=== PATIENT | female | born 1965 | race Caucasian/White ===

== ENCOUNTER 2016-11-29 16:37 | Inpatient (IN) | payer OTHER ==
[~2016-11-29] VITALS: Ht 165.1 cm; Wt 81.0 kg
[2016-11-29 19:54] VITALS: BP 140/68; RESP 18
[2016-11-29 20:00] VITALS: Ht 165.1 cm; Wt 81.0 kg
[2016-11-29] MEDS ORDERED: GLUCOSE GEL 15 GRAM TUBE PO PRN ×2 (23:45)
[2016-11-29] MEDS ORDERED: hydrALAzine 20 MG INJ IV PRN (23:45)
[2016-11-29] MEDS ORDERED: GLUCOSE GEL 15 GRAM TUBE BUCCAL PRN (23:45)
[2016-11-29] MEDS ORDERED: GLUCAGON 1 MG INJ IM PRN (23:45)
[2016-11-29] MEDS ORDERED: ONDANSETRON 4 MG INJ IV PRN (23:45)
[2016-11-29] MEDS ORDERED: DEXTROSE 50% 50 ML SYRINGE IV PRN ×2 (23:45)
[2016-11-30 02:00] VITALS: BP 114/65; RESP 18
[2016-11-30] MEDS: SOD CHLORIDE 0.9% 1,000 ML IV SCH ×3 (02:02→20:32)
[2016-11-30] MEDS: Insulin NOVOLOG SS MILD Algorithm (NPO/TPN/ENTERAL FEEDS) SC SCH ×7 (02:09→20:30)
[2016-11-30] MEDS ORDERED: morphine 4 MG/ML VIAL IV PRN (02:40)
[2016-11-30] MEDS ORDERED: GLU5XL PO (02:53)
[2016-11-30] MEDS ORDERED: LYR75 PO (02:53)
[2016-11-30] MEDS ORDERED: FLUO10TA PO (02:53)
[2016-11-30] MEDS ORDERED: METF1000 PO (02:53)
[2016-11-30] MEDS ORDERED: SITA100T8 PO (02:53)
[2016-11-30] MEDS ORDERED: LISI10TA2 PO (02:55)
[2016-11-30] MEDS ORDERED: MELO7.5O PO (02:55)
[2016-11-30 04:04] LABS: CALCIUM 9.1 mg/dl (8.4-10.2); CREATININE 0.44 mg/dl (0.44-1.00); MAGNESIUM 1.6 mg/dl (1.7-2.5); POTASSIUM 4.1 mmol/L (3.5-5.1)
[2016-11-30] MEDS ORDERED: NACL 0.9% 3 ML SYG IV SCH (04:30)
[2016-11-30] MEDS ORDERED: ONDANSETRON 4 MG INJ IV PRN (04:30)
[2016-11-30] MEDS ORDERED: METOCLOPRAMIDE 10 MG INJ IV PRN (04:30)
[2016-11-30 04:54] LABS: BASOPHIL # 0.1 10^3/ul (0.0-0.1); BASOPHILS % 0.4 % (0.0-2.0); EOSINOPHILS % 0.3 % (0.0-7.0); HEMATOCRIT 36.7 % (37.0-47.0); LYMPHOCYTES # 3.2 10^3/ul (0.8-2.9); LYMPHOCYTES % 27.5 % (15.0-51.0); MEAN CORPUSCULAR HEMOGLOBIN 30.9 pg (29.0-33.0); MEAN CORPUSCULAR HGB CONC 35.4 g/dl (32.0-37.0); MEAN CORPUSCULAR VOLUME 87.2 fl (82.0-101.0); MEAN PLATELET VOLUME 10.2 fl (7.4-10.4); MONOCYTE # 0.5 10^3/ul (0.3-0.9); MONOCYTES % 4.6 % (0.0-11.0); NEUTROPHIL # 7.8 10^3/ul (1.6-7.5); NEUTROPHILS % 66.8 % (39.0-77.0); PLATELET COUNT 247 10^3/UL (140-415); RED BLOOD COUNT 4.21 10^6/ul (4.20-5.40); RED CELL DISTRIBUTION WIDTH 12.9 % (11.5-14.5); WHITE BLOOD COUNT 11.6 10^3/ul (4.8-10.8)
[2016-11-30] MEDS: PANTOPRAZOLE 40 MG INJ IV SCH (05:25)
[2016-11-30 06:16] LABS: BASOPHIL # 0.1 10^3/ul (0.0-0.1); BASOPHILS % 0.7 % (0.0-2.0); EOSINOPHILS # 0.1 10^3/ul (0.0-0.5); EOSINOPHILS % 0.8 % (0.0-7.0); HEMATOCRIT 35.8 % (37.0-47.0); HEMOGLOBIN 12.6 g/dl (12.0-16.0); LYMPHOCYTES # 2.9 10^3/ul (0.8-2.9); MEAN CORPUSCULAR HGB CONC 35.2 g/dl (32.0-37.0); MEAN PLATELET VOLUME 10.5 fl (7.4-10.4); MONOCYTE # 0.5 10^3/ul (0.3-0.9); MONOCYTES % 5.7 % (0.0-11.0); NEUTROPHIL # 5.6 10^3/ul (1.6-7.5); NEUTROPHILS % 60.5 % (39.0-77.0); PLATELET COUNT 245 10^3/UL (140-415); RED BLOOD COUNT 4.07 10^6/ul (4.20-5.40); RED CELL DISTRIBUTION WIDTH 12.9 % (11.5-14.5); WHITE BLOOD COUNT 9.2 10^3/ul (4.8-10.8)
[2016-11-30] MEDS ORDERED: MAGNESIUM SULFATE 1 GM/D5W 100 ML IVPB ONE (06:30)
--- NOTE | 2016-11-30 06:45 | HP ---
Date/Time of Note Date/Time of Note DATE: 11/30/16 TIME: 06:31 Assessment/Plan VTE Prophylaxis VTE Prophylaxis Intervention: SCD's Lines/Catheters IV Catheter Type (from [facility]): Peripheral IV Assessment/Plan Chief Complaint/Hosp Course This is a 51-year-old female being admitted to the [facility] floor for: #1 abdominal pain: Gastroparesis versus constipation versus hepatic etiology versus other GI etiology. Patient's outpatient laboratory workup showed a mild elevation of ALT and AST of 44 each respectively lipase was normal. Her urine test was normal. CT scan did show hepatomegaly and hepatic steatosis as well as an indeterminate 2.1 cm heterogeneous enhancing lesion at the junction of the segment 4B and [address] in [address] Multiphase CT scan or MRI with Eovist was recommended. There also was moderate amount of stool throughout the colon with findings of bowel stasis but no signs of any bowel obstruction. There was a small hiatal hernia and small bilateral fat-containing hernias. At the current time will provide patient with Reglan for nausea as well as to help stimulate bowel motility in the setting of possible underlying gastroparesis. In the setting of patient's having multiple tattoos will also order hepatitis panel. Will also order an MRI with the oldest as it was recommended based on the CT scan to evaluate the liver lesion. Will give the patient MiraLAX daily to help stimulate her bowels as well and will check a TSH and hemoglobin A1c. Will consult GI for further evaluation. Keep the patient n.p.o. at this time and IV fluids for hydration. #2 diabetes mellitus: At the current time will hold patient's home oral medications, will patient on insulin sliding scale. #3 hypertension: We will continue patient's lisinopril. #4 depression: We will continue patient's home fluoxetine. #5 DVT and GI prophylaxis: SCDs, Protonix Further treatment strategy will be implemented as per the clinical course Problems: HPI/ROS Admit Date/Time Admit Date/Time Nov 29, 2016 at 19:31 Hx of Present Illness Chief complaint: Epigastric pain This is a 51-year-old female who was transferred from [facility] with complaints of abdominal pain for 3 days. She presented to the ED at that time with 3 days of epigastric abdominal pain which was 8 out of 10 in severity and is worse when eating. She also had nausea but denied any fevers or any vomiting. She denies any taking any medications or any prior history of similar pain symptoms. She states the pain is sharp in nature. At the current time patient is still complaining of pain which is between the epigastric and right upper quadrant area. The morphine has not been helping with her pain. Zofran has been helping with her nausea. She does report that her last bowel movement was day before yesterday. Allergies: NKDA Medications: See Jul Const: As per HPI Eyes : No pain discharge or redness or change in visual acuity ENT: No pain, sore throat, congestion, congestion, dysphagia or discharge Respiratory: No shortness of breath, cough, sputum, wheezing, or pleuritic pain Cardiovascular: No chest pain, palpitation, PND, or edema GI : As per HPI Genitourinary: No dysuria, hematuria, flank pain , discharge or CVA tenderness Musculoskeletal: No joint pain, back pain, neck pain, restricted range of motion in neck or joints Skin: No rash, bruising or hives Neuro: No headache, dizziness, syncope, seizure, focal weakness Endocrine: No polyuria, polydipsia, temperature intolerance Psych: No hallucination, depression, anxiety or suicidal ideation PMH/Family/Social Past Medical History Diabetes mellitus, depression, hypertension, melanoma status post surgical removal from the right upper extremity. Past Surgical History Melanoma status post surgical removal from the right upper extremity., Cholecystectomy Family History Significant Family History: diabetes Social History Patient does have multiple tattoos Alcohol Use: none Smoking Status: Never smoker Drug Use: none Exam/Review of Systems Vital Signs Vitals Vital Signs Date Time Temp Pulse Resp B/P Pulse Ox O2 Delivery O2 Flow Rate FiO2 11/30/16 02:00 98.7 76 18 114/65 96 Exam Exam General: Patient is a well-developed female lying in bed in mild distress from pain. HEENT: Atraumatic, normocephalic. The pupils are equal, round and reactive. Extraocular motor are intact Neck: Supple with full range of motion. No rigidity or meningismus Chest: Nontender Lungs: Clear to auscultation bilaterally no crackles rales or wheezing Heart: Normal S1-S2, Regular rhythm and rate. No murmur, S3, or S4 Abdomen: Soft, tenderness to palpation diffusely around the abdomen with right upper quadrant area having the greatest, hypoactive bowel sounds Extremities: Normal to inspection, no edema no cyanosis Neurologic: Normal mental status, speech normal, cranial nerves II through XII are intact, motor and sensory are intact, no focal weakness Additional Comments CT abdomen and pelvis CT scan did show hepatomegaly and hepatic steatosis as well as an indeterminate 2.1 cm heterogeneous enhancing lesion at the junction of the segment 4B and [address] Multiphase CT scan or MRI with Eovist was recommended. There also was moderate amount of stool throughout the colon with findings of bowel stasis but no signs of any bowel obstruction. There was a small hiatal hernia and small bilateral fat-containing hernias. Please refer to transfer documentation/reports for further information of the above report. Urinalysis showed specific gravity of 1037 glucose greater than 1000, with ketones 40. Negative for nitrites and negative for leukoesterase. CBC showed white blood cell count 7.9 hemoglobin of 13.3 hematocrit of 38.3 and platelets of 214 BMP showed glucose level of 324 sodium 132 potassium 4.5 chloride 100 CO2 21 BUN 9 and creatinine is 0.35 magnesium 1.8 total bili of 1.1 ALT of 44 AST of 44 alk phos 73 and lipase of 21 troponin was less than 0.029 and beta hCG qualitative was negative Labs Result Diagram: 11/29/16224911/29/162249 Medications Medications Current Medications Sodium Chloride (NS) 1,000 ml @ 70 mls/hr [id number] IV Last administered on 11/30 02:02; Admin Dose 70 MLS/HR; Start 11/29/16 at 23:45 Ondansetron HCl (Zofran Inj) 4 mg Q4H PRN IV NAUSEA AND/OR VOMITING Last administered on 11/30/16 03:36; Admin Dose 4 MG; Start 11/29/16 at 23:45 Hydralazine HCl (Apresoline) 10 mg Q6H PRN IV FOR SBP.ABOVE 160; Start at 23:45 Insulin Aspart (Novolog Insulin Pen) (Adult SC Insulin - Mild Algorithm)... Q4 SC Last administered on 11/30/16 05:32; Admin Dose 2 UNIT; Start 11/30/16 at 01:00 Miscellaneous Information 1 ea NOTE XX ; Start 11/29/16 at 23:45 Glucose (Glutose) 15 gm Q15M PRN PO DECREASED GLUCOSE; Start 11/29/16 at 23:45 Glucose (Glutose) 22.5 gm Q15M PRN PO DECREASED GLUCOSE; Start 11/29/16 at 23: 45 Dextrose (D50w Syringe) 25 ml Q15M PRN IV DECREASED GLUCOSE; Start 11/29/16 at 23:45 Dextrose (D50w Syringe) 50 ml Q15M PRN IV DECREASED GLUCOSE; Start 11/29/16 at 23:45 Glucagon (Glucagen) 1 mg Q15M PRN IM DECREASED GLUCOSE; Start 11/29/16 at 23:45 Glucose (Glutose) 15 gm Q15M PRN BUCCAL DECREASED GLUCOSE; Start 11/29/16 at 23 :45 Morphine Sulfate (morphine) 4 mg Q4H PRN IV PAIN Last administered on 03:01; Admin Dose 4 MG; Start 11/30/16 at 02:40 Ondansetron HCl (Zofran Inj) 4 mg Q6H PRN IV NAUSEA AND/OR VOMITING; Start at 04:30 Metoclopramide HCl (Reglan) 10 mg Q6H PRN IV NAUSEA AND/OR VOMITING; Start at 04:30 Pantoprazole (Protonix Iv) 40 mg DAILY@06 IV Last administered on 11/30/16 05: 25; Admin Dose 40 MG; Start 11/30/16 at 06:00 Hydromorphone HCl 0.5 mg 0.5 mg Q4H PRN IV PAIN; Start 11/30/16 at 06:30; Status UNV Magnesium Sulfate/ Dextrose (Magnesium Sulfate 1 Gm/D5W) 100 ml @ 100 mls/hr ONCE ONCE IVPB ; Start 11/30/16 at 06:30; Stop 11/30/16 at 07:29; Status UNV CODY REYES Nov 30, 2016 06:41
[2016-11-30 07:04] LABS: ALBUMIN 3.7 g/dl (3.3-4.9); ALBUMIN/GLOBULIN RATIO 1.15; BILIRUBIN,INDIRECT 0.5 mg/dl (0-1.1); BILIRUBIN,TOTAL 0.5 mg/dl (0.2-1.3); CALCIUM 8.7 mg/dl (8.4-10.2); CREATININE 0.45 mg/dl (0.44-1.00); POTASSIUM 3.9 mmol/L (3.5-5.1); TOTAL PROTEIN 6.9 g/dl (6.1-8.1)
[2016-11-30 07:26] LABS: THYROID STIMULATING HORMONE 2.31 MIU/L (0.465-4.680)
[2016-11-30 07:39] VITALS: BP 130/71; RESP 18
[2016-11-30 07:49] LABS: HAAIG REFLEX REFLEX FILED
[2016-11-30] MEDS: PREGABALIN 75 MG CAP PO SCH ×2 (08:47→20:26)
[2016-11-30] MEDS: LISINOPRIL 10 MG TAB PO SCH ×2 (08:48→20:27)
[2016-11-30] MEDS: FLUOXETINE 10 MG CAP PO SCH (08:48)
[2016-11-30] MEDS: POLYETHYLENE GLYCOL 17 GM PACKET PO SCH (08:49)
[2016-11-30 09:14] LABS: HEPATITIS B CORE ANTIBODY NEGATIVE (NEGATIVE)
[2016-11-30] MEDS: HYDROmorphONE 1 MG/ML SYG IV PRN ×3 (10:05→23:52)
[2016-11-30 14:18] VITALS: BP 111/64; RESP 18
[2016-11-30 19:53] VITALS: BP 110/66; RESP 20
--- NOTE | 2016-11-30 20:19 | RADRPT ---
PROCEDURE: MR Abdomen. CLINICAL INDICATION: Indeterminate liver lesion. TECHNIQUE: Multiplanar MRI of the abdomen was performed prior to and following the intravenous adm inistration of 10 cc of Eovist. COMPARISON: CT abdomen/pelvis 11/29/2016. FINDINGS: The liver is enlarged measuring approximately 22.0 cm in a craniocaudal dimension. The liver demons trates diffuse loss in signal intensity on opposed phase chemical shift sequences compatible with fa tty infiltration. There is a tiny 10-11 mm T2 hyperintense structure within the left hepatic lobe w hich demonstrates early homogeneous enhancement and remaining isointense to the hepatic vessels on p ortal venous phase. This small lesion does not retain contrast on the delayed hepatocellular phase. Imaging findings are most compatible with a small flash filling hemangioma. There is no additiona l liver lesion. The hepatic and portal veins are patent. The gallbladder is surgically absent. Th e common bile duct measures approximately 7.5 mm in greatest diameter, which is likely normal post c holecystectomy. Mild prominence of the central intrahepatic ducts is observed. The remnant cystic duct is unremarkable. There is no pancreatic duct dilatation. The spleen and pancreas are homogeneous enhancement. The adrenal glands are normal. The kidneys are symmetric in size, signal intensity and enhancement. There is no hydronephrosis or abnormal perinephric inflammation. The abdominal aorta is normal in caliber. There is no periaortic / retroperitoneal lymphadenopathy. The stomach and visualized small and large intestines are unremarkable. There is no ascites. There are no bone marrow signal abnormalities. Subcutaneous soft tissues are unremarkable. IMPRESSION: Hepatomegaly with fatty infiltration. Small lesion of the left hepatic lobe demonstrating enhancement characteristics favoring the presenc e of a tiny flash filling hemangioma. No evidence of abdominal mass, lymphadenopathy or acute inflammatory pathology. RPTAT: HLST .Angie Leyva MD, MD Date Time Electronically viewed and signed by .Angie Leyva MD, on 11/30/2016 20:18 .T/
[2016-12-01] MEDS: Insulin NOVOLOG SS MILD Algorithm (NPO/TPN/ENTERAL FEEDS) SC SCH ×4 (01:44→13:00)
[2016-12-01 01:57] VITALS: BP 113/64; RESP 20
[2016-12-01] MEDS: PANTOPRAZOLE 40 MG INJ IV SCH (05:16)
[2016-12-01 06:15] LABS: BASOPHILS % 0.5 % (0.0-2.0); EOSINOPHILS # 0.2 10^3/ul (0.0-0.5); EOSINOPHILS % 1.7 % (0.0-7.0); HEMATOCRIT 34.7 % (37.0-47.0); HEMOGLOBIN 11.8 g/dl (12.0-16.0); LYMPHOCYTES # 3.7 10^3/ul (0.8-2.9); LYMPHOCYTES % 42.8 % (15.0-51.0); MEAN CORPUSCULAR HEMOGLOBIN 30.2 pg (29.0-33.0); MEAN CORPUSCULAR VOLUME 88.7 fl (82.0-101.0); MEAN PLATELET VOLUME 10.4 fl (7.4-10.4); MONOCYTE # 0.5 10^3/ul (0.3-0.9); NEUTROPHIL # 4.2 10^3/ul (1.6-7.5); NEUTROPHILS % 48.7 % (39.0-77.0); PLATELET COUNT 228 10^3/UL (140-415); RED BLOOD COUNT 3.91 10^6/ul (4.20-5.40); RED CELL DISTRIBUTION WIDTH 13.2 % (11.5-14.5); WHITE BLOOD COUNT 8.6 10^3/ul (4.8-10.8)
[2016-12-01 06:34] LABS: ALBUMIN 3.6 g/dl (3.3-4.9); ALBUMIN/GLOBULIN RATIO 1.12; BILIRUBIN,INDIRECT 0.5 mg/dl (0-1.1); BILIRUBIN,TOTAL 0.5 mg/dl (0.2-1.3); CALCIUM 8.3 mg/dl (8.4-10.2); CREATININE 0.51 mg/dl (0.44-1.00); POTASSIUM 3.8 mmol/L (3.5-5.1); TOTAL PROTEIN 6.8 g/dl (6.1-8.1)
[2016-12-01 07:13] VITALS: BP 109/63; RESP 18
[2016-12-01] MEDS: FLUOXETINE 10 MG CAP PO SCH (10:06)
[2016-12-01] MEDS: PREGABALIN 75 MG CAP PO SCH (10:06)
[2016-12-01] MEDS: POLYETHYLENE GLYCOL 17 GM PACKET PO SCH (10:06)
[2016-12-01] MEDS: LISINOPRIL 10 MG TAB PO SCH (10:10)
[2016-12-01] MEDS: SOD CHLORIDE 0.9% 1,000 ML IV SCH (11:57)
--- NOTE | 2016-12-01 12:22 | PDOCDIS ---
Discharge Instructions CONDITION Patient Condition: Good HOME CARE INSTRUCTIONS: Diet Instructions: Reduced Calorie ACTIVITY: Activity Restrictions: No Restrictions FOLLOW UP/APPOINTMENTS Follow-up Plan F/U WITH YOUR PCP IN 1-2 WEEKS MARY HICKS Dec 01, 2016 12:22
--- NOTE | 2016-12-01 14:08 | DS ---
Date/Time of Note Date/Time of Note DATE: 12/01/16 TIME: 14:03 Discharge Summary Admission/Discharge Info Admit Date/Time Nov 29, 2016 at 19:31 Discharge Date/Time Dec 01, 2016 at 13:55 Discharge Diagnosis #1 abdominal pain secondary to fibromyalgia pain -Continue home Lyrica -MRCP was negative #2 Diabetes-A1c elevated 11.7 -Patient follow with PCP lifestyle changes have been advised #3 hypertension: Continue home #4 depression: Continue home meds #5 Fatty liver-lifestyle changes advised Patient Condition: Good Hospital Course Patient is a 51-year-old female who was transferred from [facility] with complaints of abdominal pain for 3 days. Patient describes the pain as being in the abdominal muscular wall description sounds as though it is a nerve pain. Patient has been diagnosed with fibromyalgia in the past and is on Lyrica. Patient's MRCP was negative and her symptoms were felt to be from fibromyalgia and not a GI based issue. Of note patient's MRCP did show fatty liver and her A1c was elevated as above and patient was advised to begin lifestyle changes to improve her diet and increase her exercise. On day of discharge patient's vitals, labs and physical exam are stable, she had no acute complaints and questions were answered. Home Meds Reported Medications Meloxicam* (Meloxicam*) 7.5 Mg/5 Ml Oral.susp, 15 MG PO DAILY, #300 ML 11/30/16 Lisinopril* (Lisinopril*) 10 Mg Tablet, 10 MG PO BID, #30 TAB 11/30/16 Fluoxetine Hcl* (Fluoxetine Hcl*) 10 Mg Tablet, 10 MG PO DAILY, TAB 11/30/16 Pregabalin* (Lyrica*) 75 Mg Capsule, 75 MG PO BID, CAP 11/30/16 Glipizide XL* (Glipizide XL*) 5 Mg Tabsr, 10 MG PO BID, TAB 11/30/16 Metformin Hcl* (Metformin Hcl*) 1,000 Mg Tablet, 1000 MG PO WITH BREAKFAST DINNE , #60 TAB 11/30/16 Sitagliptin* (Januvia*) 100 Mg Tablet, 100 MG PO BID, #30 TAB 11/30/16 Follow-up Plan Follow-up with PCP 1-2 weeks Primary Care Provider Not On Staff Doctor Time spent on discharge: > 30 minutes MARY HICKS Dec 01, 2016 14:08
== END 2016-12-01 13:55 | disposition home or self-care (01) | DRG 556 ==
LOC: MS2 19:31
PROVIDERS: ADMIT Internal Medicine; ATTEND Internal Medicine
DX: M79.7 Fibromyalgia (principal); K76.0 Fatty (change of) liver, not elsewhere classified; I10 Essential (primary) hypertension; E11.9 Type 2 diabetes mellitus without complications; F32.9 Major depressive disorder, single episode, unspecified; Z79.84 Long term (current) use of oral hypoglycemic drugs
CPT/HCPCS: 74182; 80048; 80053; 80061; 82962; 83036; 83690; 83735; 84443; 85025; 86704; 86706; 86708; 86709; 86803; 87340; C9113; J1170; J1815; J2270; J2405; J3475; J7030

== ENCOUNTER 2016-12-06 15:14 | Outpatient (CLI) | payer OTHER ==
[~2016-12-06] VITALS: Ht 165.1 cm; Wt 83.6 kg
[~2016-12-06 15:14] MED LIST: FLUO10TA PO; GLU5XL PO; LISI10TA2 PO; LYR75 PO; MELO7.5O PO; METF1000 PO; SITA100T8 PO
[2016-12-06 15:22] VITALS: BP 119/68; PULSE 65; RESP 18; Ht 165.1 cm; Wt 83.6 kg
--- NOTE | 2016-12-06 16:05 | PN ---
Date/Time of Note Date/Time of Note DATE: 12/06/16 TIME: 16:00 Outpatient Progress Note Chief Complaint Abdominal pain/diabetes/hypertension/depression/history of fibromyalgia HPI Abdominal pain/patient complains of abdominal discomfort, mostly in epigastric, mild to moderate, constant, no radiation, patient is already on medication, patient was recently hospitalized, and no obvious reason, Diabetes/no polydipsia poly-hypoglycemia, gastroparesis, Hypertension/no headache or dizziness, lightheadedness, Depression/patient has depression, no suicidal, History of fibromyalgia/patient was told he has a history of fibromyalgia, patient already on Lyrica, Review of Systems Const: No Fever, no chills, no Wt. loss, no Fatigue, normal appetite, no diaphoresis. Eyes: No pain, no discharge, no redness, no visual change, no foreign body. ENT: No pain, no bleeding, no congestion, no sore throat, no dysphagia, no discharge or rhinitis. Lymph: No adenopathy, no tender nodes, no lymphedema. Resp: No SOB, no cough, no sputum, no wheezing, no chest pain. CV: No chest pain, no palpitaions, no IBRAHIM, no PND, no edema. GI: Normal appetite, epigastric pain, no nausea, no vomiting, no diarrhea, no blood, no constipation. : No frequency, no urgency, no dysuria, no hematuria, no flank pain, no discharge, no bleeding. Musc: No bone/joint pain, no back pain, no neck pain, no knee pain, no restricted ROM. Skin: No rash, no skin lesions, no erythema, no laceration, no bruising, no pruritus. Neuro: No GUAJARDO, no dizziness, no syncope, no seizure, no focal-weakness. Endo: No polyuria, no polydypsia, no dry-skin, no temp-intolerance. Psych: No hallucinations, no depression, no anxiety, no suicidal ideation. Ext: No edema, no pain, no ulcer, no weakness. Physical Exam Vital Signs Date Time Temp Pulse Resp B/P Pulse Ox O2 Delivery O2 Flow Rate FiO2 12/06/16 15:22 98.0 65 18 119/68 98 Room Air General Appearance: A 51 year-old female who appears well-developed, well- nourished, in no acute distress. HEENT: Head normocephalic, atraumatic. Pupils equal, round, reactive to light and accommodate. Sclerae are no jaundice. Nasal turbinates pink without erythema or nasal discharge. Mucous membranes pink and moist without lesions. Oropharynx clear without any exudate or discharge. NECK: Supple. Trachea midline, No thyromegaly, No cervical lymphadenopathy, No mass, No carotid bruits, No JVD, Carotid pulses 2+ bilaterally. PULMONARY: Clear to auscultaion bilaterally, No retractions, Chest expansion symmetric bilaterally, no rales, no ronchi, no dulness on percussion. CARDIAC: Normal SI and S2, Regular rate and rythm, no murmur, gallop, or rub. GASTROINTESTINAL: Abdomen is soft, mild epigastric discomfort,, Non Rigid, No distention, Positive bowel sounds x4 quadrants, Liver normal. SKIN: Warm, dry, no rash, no bruise, no echmosis. Tattoo all over her body, EXTREMITIES: Bilateral lower extremities normal, no edema, no phlabitus, pulse palpable, no contracture patient has tattoo all over her body,. MUSCULOSKELETAL: Spine Normal, Non-tender, Normal range of motion, No swelling, no deformity, no clubbing, or cyanosis, the patient has no edema to bilateral lower extremities, dorsalis pedis pulses palpable bilaterally. NEUROLOGIC: The patient is awake, alert, oriented, responding to yes/no questions appropriately, moving all extremities, cranial nerve intact, normal strenght, normal power, normal coordination, normal gait. Allergies Coded Allergies: No Known Allergy (Unverified , 11/30/16) PMH Abdominal pain/diabetes/hypertension/depression/history of fibromyalgia/history of melanoma many years ago, Social Hx No smoking no drinking, Family Hx Noncontributory Assessment/Plan Impression Abdominal pain cause undetermined Status post cholecystectomy Diabetes Hypertension Depression Fibromyalgia History of melanoma Plan Detail explanation about multiple disease, discussed about prognosis, discussed about her condition, Patient encouraged to increase activity, Patient encouraged to lose weight, and patient encouraged to control the diet, Patient encouraged to follow with the primary care physician, Patient has all the medication at present, no need any new medication at present , Medications Home Meds Reported Medications Meloxicam* (Meloxicam*) 7.5 Mg/5 Ml Oral.susp, 15 MG PO DAILY, #300 ML 11/30/16 Lisinopril* (Lisinopril*) 10 Mg Tablet, 10 MG PO BID, #30 TAB 11/30/16 Fluoxetine Hcl* (Fluoxetine Hcl*) 10 Mg Tablet, 10 MG PO DAILY, TAB 11/30/16 Pregabalin* (Lyrica*) 75 Mg Capsule, 75 MG PO BID, CAP 11/30/16 Glipizide XL* (Glipizide XL*) 5 Mg Tabsr, 10 MG PO BID, TAB 11/30/16 Metformin Hcl* (Metformin Hcl*) 1,000 Mg Tablet, 1000 MG PO WITH BREAKFAST DINNE , #60 TAB 11/30/16 Sitagliptin* (Januvia*) 100 Mg Tablet, 100 MG PO BID, #30 TAB 11/30/16 HELGA SHAW MD Dec 06, 2016 16:05
== END 2016-12-06 16:48 | disposition home or self-care (01) ==
LOC: DCC 15:14
PROVIDERS: ATTEND Internal Medicine
DX: R10.9 Unspecified abdominal pain (principal); E11.9 Type 2 diabetes mellitus without complications; I10 Essential (primary) hypertension; F32.9 Major depressive disorder, single episode, unspecified; M79.7 Fibromyalgia

== ENCOUNTER 2017-01-03 11:44 | Outpatient (CLI) | payer OTHER ==
[~2017-01-03] VITALS: Ht 165.1 cm; Wt 80.0 kg
[2017-01-03 11:42] VITALS: BP 121/78; PULSE 68; RESP 16; Ht 165.1 cm; Wt 80.0 kg
--- NOTE | 2017-01-03 15:20 | PN ---
Date/Time of Note Date/Time of Note DATE: 01/03/17 TIME: 15:17 Outpatient Progress Note Chief Complaint Diabetes/hypertension/depression/fibromyalgia HPI Diabetes/no polydipsia polyuria hypoglycemia, gastroparesis, Hypertension/no headache or dizziness, no lightheadedness, Depression patient slightly depressed because of multiple medical problem, Fibromyalgia/patient has joint pain and stiffness, PUD/patient complains of epigastric pain, no nausea vomiting, no black stool, Review of Systems Const: No Fever, no chills, no Wt. loss, no Fatigue, normal appetite, no diaphoresis. Eyes: No pain, no discharge, no redness, no visual change, no foreign body. ENT: No pain, no bleeding, no congestion, no sore throat, no dysphagia, no discharge or rhinitis. Lymph: No adenopathy, no tender nodes, no lymphedema. Resp: No SOB, no cough, no sputum, no wheezing, no chest pain. CV: No chest pain, no palpitaions, no IBRAHIM, no PND, no edema. GI: Normal appetite, epigastric pain, no nausea, no vomiting, no diarrhea, no blood, no constipation. : No frequency, no urgency, no dysuria, no hematuria, no flank pain, no discharge, no bleeding. Musc: Slight back pain, no neck pain, no knee pain, no restricted ROM. Skin: No rash, no skin lesions, no erythema, no laceration, no bruising, no pruritus. Neuro: No GUAJARDO, no dizziness, no syncope, no seizure, no focal-weakness. Endo: No polyuria, no polydypsia, no dry-skin, no temp-intolerance. Psych: No hallucinations, no depression, no anxiety, no suicidal ideation. Ext: No edema, no pain, no ulcer, no weakness. Physical Exam Vital Signs Date Time Temp Pulse Resp B/P Pulse Ox O2 Delivery O2 Flow Rate FiO2 01/03/17 11:42 98.0 68 16 121/78 98 Room Air General Appearance: A 51 year-old female who appears well-developed, well- nourished, in no acute distress. HEENT: Head normocephalic, atraumatic. Pupils equal, round, reactive to light and accommodate. Sclerae are no jaundice. Nasal turbinates pink without erythema or nasal discharge. Mucous membranes pink and moist without lesions. Oropharynx clear without any exudate or discharge. NECK: Supple. Trachea midline, No thyromegaly, No cervical lymphadenopathy, No mass, No carotid bruits, No JVD, Carotid pulses 2+ bilaterally. PULMONARY: Clear to auscultaion bilaterally, No retractions, Chest expansion symmetric bilaterally, no rales, no ronchi, no dulness on percussion. CARDIAC: Normal SI and S2, Regular rate and rythm, no murmur, gallop, or rub. GASTROINTESTINAL: Abdomen is soft, epigastric discomfort, and slight tenderness, , Non Rigid, No distention, Positive bowel sounds x4 quadrants, Liver normal. SKIN: Warm, dry, no rash, no bruise, no echmosis. EXTREMITIES: Bilateral lower extremities normal, no edema, no phlabitus, pulse palpable, no contracture. MUSCULOSKELETAL: Spine Normal, Non-tender, Normal range of motion, No swelling, no deformity, no clubbing, or cyanosis, the patient has no edema to bilateral lower extremities, dorsalis pedis pulses palpable bilaterally. NEUROLOGIC: The patient is awake, alert, oriented, responding to yes/no questions appropriately, moving all extremities, cranial nerve intact, normal strenght, normal power, normal coordination, normal gait. Allergies Coded Allergies: No Known Allergy (Unverified , 11/30/16) PMH No change Social Hx No change Family Hx No change Assessment/Plan Impression Diabetes/hypertension/depression/fibromyalgia/PUD Plan Patient education done about her disease, and process, Patient encouraged to follow with the primary care physician, Patient has epigastric discomfort, patient already on meloxicam, patient may have gastritis, will start Protonix or equivalent 40 mg daily, #30 patient to follow with the primary care physician, if patient feel benefit or may need extension of the medication, Medications Home Meds Reported Medications Meloxicam* (Meloxicam*) 7.5 Mg/5 Ml Oral.susp, 15 MG PO DAILY, #300 ML 11/30/16 Lisinopril* (Lisinopril*) 10 Mg Tablet, 10 MG PO BID, #30 TAB 11/30/16 Fluoxetine Hcl* (Fluoxetine Hcl*) 10 Mg Tablet, 10 MG PO DAILY, TAB 11/30/16 Pregabalin* (Lyrica*) 75 Mg Capsule, 75 MG PO BID, CAP 11/30/16 Glipizide XL* (Glipizide XL*) 5 Mg Tabsr, 10 MG PO BID, TAB 11/30/16 Metformin Hcl* (Metformin Hcl*) 1,000 Mg Tablet, 1000 MG PO WITH BREAKFAST DINNE , #60 TAB 11/30/16 Sitagliptin* (Januvia*) 100 Mg Tablet, 100 MG PO BID, #30 TAB 11/30/16 HELGA SHAW MD Jan 03, 2017 15:20
== END 2017-01-03 17:00 | disposition home or self-care (01) ==
LOC: DCC 11:44
PROVIDERS: ATTEND Internal Medicine
DX: E11.9 Type 2 diabetes mellitus without complications (principal); I10 Essential (primary) hypertension; M79.7 Fibromyalgia; K27.9 Peptic ulcer, site unspecified, unspecified as acute or chronic, without hemorrhage or perforation; F32.9 Major depressive disorder, single episode, unspecified

== ENCOUNTER 2017-01-11 12:25 | Inpatient (IN) | payer OTHER ==
[~2017-01-11] VITALS: Ht 165.1 cm; Wt 81.0 kg
[~2017-01-11 12:25] MED LIST changes: +GLIP-160 PO; -GLU5XL PO
[2017-01-11] MEDS ORDERED: MELO7.5O PO (15:04)
[2017-01-11] MEDS ORDERED: GLIP2.5T3 PO (15:15)
[2017-01-11] MEDS ORDERED: TERB250T9 PO (15:15)
[2017-01-11] MEDS: SOD CHLORIDE 0.9% 1,000 ML IV SCH (16:30)
[2017-01-11] MEDS ORDERED: DEXTROSE 50% 50 ML SYRINGE IV PRN ×2 (16:30)
[2017-01-11] MEDS ORDERED: GLUCAGON 1 MG INJ IM PRN (16:30)
[2017-01-11] MEDS ORDERED: GLUCOSE GEL 15 GRAM TUBE PO PRN ×2 (16:30)
[2017-01-11] MEDS ORDERED: METOCLOPRAMIDE 10 MG INJ IV PRN (16:30)
[2017-01-11] MEDS ORDERED: NACL 0.9% 3 ML SYG IV SCH (16:30)
[2017-01-11] MEDS ORDERED: GLUCOSE GEL 15 GRAM TUBE BUCCAL PRN (16:30)
--- NOTE | 2017-01-11 16:34 | QN ---
Documentation Job number: [id number] Comment H&P dictated. KIMBERLY VELAZQUEZ NP Jan 11, 2017 16:34
[2017-01-11] MEDS: CEFTRIAXONE 1 GM/50 ML (PMX) 50 ML IVPB SCH (17:35)
[2017-01-11] MEDS: INSULIN ASPART [NOVOLOG] 3 ML PEN SC SCH ×3 (17:38→21:00)
--- NOTE | 2017-01-11 17:41 | HP ---
DATE OF ADMISSION: 01/11/2017 REASON FOR ADMISSION: Transfer from outside facility for further evaluation of abdominal pain. HISTORY OF PRESENT ILLNESS: This is a 51-year-old, female, with past medical history of chronic back pain, depression, type 2 diabetes mellitus, essential hypertension, and melanoma who went to [facility] Emergency Room because of abdominal pain with associated nonbilious, nonbloody vomiting and diarrhea that has been going on for a 3 day period. The patient verbalized the abdominal pain as unprovoked. The patient also verbalized subjective fevers. The patient located abdominal pain at the lower abdomen in the periumbilical area. The patient denied any radiation of the pain. The patient denied any dysuria or hematuria. The patient denied any melena or hematochezia. The patient denied any hematemesis. In the emergency room at [facility], the patient underwent extensive evaluation. The patient's urinalysis at [facility] showed positive urine WBC of 10 to 25 with a large amount of urine leukocyte esterase. The patient had no leukocytosis. The patient was noticed to have hyperglycemia. The patient underwent a CT scan of the abdomen and pelvis at [facility] that was negative for any acute findings. The patient was treated with IV fluids, IV analgesics, antiemetics, and a single dose of IV ceftriaxone. PAST MEDICAL HISTORY: Essential hypertension, type 2 diabetes mellitus, melanoma, depression, and chronic back pain. PAST SURGICAL HISTORY: Excision of melanoma and cholecystectomy. MEDICATIONS: 1. Lisinopril 10 mg by mouth twice a day. 2. Fluoxetine 20 mg by mouth daily. 3. Meloxicam 15 mg by mouth daily. 4. Lyrica 75 mg by mouth twice a day. 5. Glipizide 10 mg by mouth daily. 6. Metformin 1000 mg by mouth with breakfast and dinner. 7. Januvia 100 mg by mouth daily. ALLERGIES: NO KNOWN DRUG ALLERGIES. SOCIAL HISTORY: The patient lives at home. No history of tobacco, alcohol, or illicit drug use. REVIEW OF SYSTEMS: A 12 point review of systems all remaining review of systems are negative other than what is mentioned history of present illness. PHYSICAL EXAMINATION: GENERAL APPEARANCE: A 51-year-old, female, lying in bed, in no apparent distress. HEENT: Normocephalic and atraumatic. Eyes anicteric sclerae. Conjunctivae clear. ENT: Nasal septal mucosa is dry. NECK: Supple. No JVD noted. RESPIRATORY: Bilaterally clear to auscultation. No adventitious breath sounds. No use of accessory muscle respiration. CARDIAC: Regular rate and rhythm. S1-S2 heard. ABDOMEN: Soft. Periumbilical tenderness and tenderness in the right upper quadrant, no guarding. GENITOURINARY: Deferred. EXTREMITIES: No cyanosis, no clubbing, no edema. Peripheral pulses palpable. NEUROLOGIC: The patient is awake, alert, and oriented. Cranial nerves are grossly intact. LABORATORY AND DIAGNOSTIC DATA: From [facility]: WBC 9.8, hemoglobin 14.5, hematocrit 41.7, and platelet count 258. Sodium 136, potassium 3.9, chloride 101, carbon dioxide 23, anion gap 248, BUN 15, creatinine 0.65, calcium 9.5, magnesium 1.5, and total bilirubin 1.1. ALT 35, AST 30, alkaline phosphatase 69, amylase 42, and lipase 23. Serum HCG negative. Urinalysis, urine leukocyte esterase large, urine microscopic WBCs 10-25. CT scan of the abdomen and pelvis with IV contrast. No free fluid. Abscess in the abdomen or pelvis. Stable 1 cm hypervascular blush in the left lateral hepatic lobe. Fatty change of the liver. Status post cholecystectomy that is stable. Postoperative prominence of the common bile duct. Tiny bilateral inguinal hernias. IMPRESSION: This is a 51-year-old female, who will be admitted to [facility] for further evaluation of her abdominal pain. ASSESSMENT AND PLAN: 1. Abdominal pain. Etiology unclear. The patient had associated nausea, vomiting, as well as diarrhea. Fair cultures will be obtained. The patient will be started on empiric antibiotics. Etiology of the patient's abdominal pain is unclear at this time. The patient has no evidence of any acute abdominal findings. The patient has no evidence of any transaminitis or hyperbilirubinemia. However, the patient had a positive urinalysis, which could be contributing to the patient's abdominal pain and other symptomatology. The patient will be started on empiric antibiotics. 2. Positive urinalysis with possible urinary tract infection. Urine cultures will be obtained. Will keep the patient hydrated. She will be started on appropriate antibiotics. 3. Type 2 diabetes mellitus. The patient will be started on sliding scale insulin along with pre-meal insulin and basal insulin. Metformin will be put on hold because the patient received IV contrast during the CT scan done at [facility]. 4. Essential hypertension. The patient will be continued on antihypertensives. 5. Depression. The patient will be continued on SSRIs. 6. Chronic back pain. The patient will be continued on pain medications. The rest of the patient's management will be based on the clinical course, results of diagnostics, and inputs from consultants. Based on the patient's clinical presentation, she most probably requires at least 1 midnight's stay for further management and evaluation for clinical presentation. The case and management of this patient was fully discussed with Dr. Millan. Dictated By: Venkat Lopez NP /calvin/chuck /Document#: [id number] THOM
[2017-01-11] MEDS ORDERED: metFORMIN 500 MG TAB PO SCH (18:05)
[2017-01-11] MEDS: morphine 2 MG INJ IV PRN (20:49)
[2017-01-11 20:52] VITALS: BP 103/50; RESP 18
[2017-01-11] MEDS: PREGABALIN 75 MG CAP PO SCH (20:52)
[2017-01-11] MEDS: FAMOTIDINE 20 MG TAB PO SCH (20:52)
[2017-01-11] MEDS: LISINOPRIL 10 MG TAB PO SCH ×2 (20:53→21:07)
[2017-01-11] MEDS: INSULIN GLARGINE [LANtus] 3 ML PEN SC SCH (21:04)
[2017-01-12] MEDS: morphine 2 MG INJ IV PRN ×3 (01:57→17:04)
[2017-01-12] MEDS ORDERED: ACCU-CHEK XX SCH (02:00)
[2017-01-12] MEDS: ACCU-CHEK XX SCH (02:00)
[2017-01-12] MEDS: SOD CHLORIDE 0.9% 1,000 ML IV SCH ×2 (02:07→11:50)
[2017-01-12 02:56] VITALS: BP 118/64; RESP 18
[2017-01-12 06:10] LABS: BASOPHIL # 0.1 10^3/ul (0.0-0.1); BASOPHILS % 0.6 % (0.0-2.0); EOSINOPHILS # 0.2 10^3/ul (0.0-0.5); EOSINOPHILS % 1.8 % (0.0-7.0); HEMATOCRIT 33.9 % (37.0-47.0); HEMOGLOBIN 11.8 g/dl (12.0-16.0); LYMPHOCYTES # 3.6 10^3/ul (0.8-2.9); LYMPHOCYTES % 41.6 % (15.0-51.0); MEAN CORPUSCULAR HEMOGLOBIN 30.8 pg (29.0-33.0); MEAN CORPUSCULAR HGB CONC 34.8 g/dl (32.0-37.0); MEAN CORPUSCULAR VOLUME 88.5 fl (82.0-101.0); MEAN PLATELET VOLUME 10.2 fl (7.4-10.4); MONOCYTE # 0.5 10^3/ul (0.3-0.9); NEUTROPHILS % 49.8 % (39.0-77.0); PLATELET COUNT 225 10^3/UL (140-415); RED BLOOD COUNT 3.83 10^6/ul (4.20-5.40); RED CELL DISTRIBUTION WIDTH 12.8 % (11.5-14.5); WHITE BLOOD COUNT 8.7 10^3/ul (4.8-10.8)
[2017-01-12 06:46] LABS: ALBUMIN 3.4 g/dl (3.3-4.9); ALBUMIN/GLOBULIN RATIO 1.09; BILIRUBIN,INDIRECT 0.2 mg/dl (0-1.1); BILIRUBIN,TOTAL 0.2 mg/dl (0.2-1.3); CREATININE 0.5 mg/dl (0.44-1.00); POTASSIUM 3.3 mmol/L (3.5-5.1); TOTAL PROTEIN 6.5 g/dl (6.1-8.1)
[2017-01-12 07:12] LABS: MAGNESIUM 1.7 mg/dl (1.7-2.5); PHOSPHORUS 3.2 mg/dl (2.5-4.9)
[2017-01-12 07:43] LABS: THYROID STIMULATING HORMONE 2.28 MIU/L (0.465-4.680)
[2017-01-12] MEDS: INSULIN ASPART [NOVOLOG] 3 ML PEN SC SCH ×7 (07:58→21:00)
[2017-01-12] MEDS: INSULIN GLARGINE [LANtus] 3 ML PEN SC SCH (07:59)
[2017-01-12] MEDS: PREGABALIN 75 MG CAP PO SCH ×2 (08:06→21:09)
[2017-01-12] MEDS: ENOXAPARIN 40 MG/0.4 ML SYG SC SCH (08:06)
[2017-01-12] MEDS: FLUOXETINE 20 MG CAP PO SCH (08:06)
[2017-01-12] MEDS: FAMOTIDINE 20 MG TAB PO SCH ×2 (08:06→21:09)
[2017-01-12] MEDS: LISINOPRIL 10 MG TAB PO SCH ×2 (08:06→21:08)
[2017-01-12] MEDS: MELOXICAM 15 MG TAB PO SCH (08:06)
[2017-01-12 09:03] VITALS: BP 114/68; RESP 18
[2017-01-12] MEDS: HYDROCODONE/APAP (5/325) TAB PO PRN (11:38)
[2017-01-12] MEDS ORDERED: POTASSIUM CHLORIDE (SR) 10 MEQ TAB PO ONE (12:30)
--- NOTE | 2017-01-12 13:54 | PN ---
Date/Time of Note Date/Time of Note DATE: 01/12/17 TIME: 13:53 Assessment/Plan VTE Prophylaxis VTE Prophylaxis Intervention: LMWH Lines/Catheters IV [facility]ter [facility]from [facility] Saline Lock Assessment/Plan Chief Complaint/Hosp Course 1. Abdominal pain. Etiology unclear. CT scan of the abdomen and pelvis from outside facility has been negative for any acute findings. The patient had positive urinalysis. Urine cultures pending at this time. Continue empiric antibiotics. Obtain gastroenterology consult. 2. Positive urinalysis with possible urinary tract infection. Urine cultures pending at this time. Continue empiric antibiotics. 3. Type 2 diabetes mellitus. Continue sliding scale insulin along with basal insulin and pre-meal insulin. Hold metformin because of recent IV contrast use. 4. Essential hypertension. The patient will be continued on antihypertensives. 5. Depression. The patient will be continued on SSRIs. 6. Chronic back pain. The patient will be continued on pain medications. 7. Fluids, electrolytes, and nutrition. Carbohydrate controlled diet. 8. DVT prophylaxis. Subcutaneous Lovenox. 9. Gastrointestinal prophylaxis. Histamine 2 receptor blockers. 10. Plan. Continue pain control. Continue empiric antibiotics. Obtain gastroenterology consult. Case discussed with . Problems: Subjective 24 Hr Interval Summary Free Text/Dictation Continues to have abdominal pain. Exam/Review of Systems Vital Signs Vitals Vital Signs Date Time Temp Pulse Resp B/P Pulse Ox O2 Delivery O2 Flow Rate FiO2 01/12/17 09:03 98.0 72 18 114/68 97 Intake and Output 01/11/17 01/11/17 01/12/17 15:00 23:00 07:00 Intake Total 590 ml 1880 ml Balance 590 ml 1880 ml Exam GENERAL APPEARANCE: A 51-year-old, female, lying in bed, in no apparent distress. HEENT: Normocephalic and atraumatic. Eyes anicteric sclerae. Conjunctivae clear. ENT: Nasal septal mucosa is dry. NECK: Supple. No JVD noted. RESPIRATORY: Bilaterally clear to auscultation. No adventitious breath sounds. No use of accessory muscle respiration. CARDIAC: Regular rate and rhythm. S1-S2 heard. ABDOMEN: Soft. Periumbilical tenderness and tenderness in the right upper quadrant, no guarding. GENITOURINARY: Deferred. EXTREMITIES: No cyanosis, no clubbing, no edema. Peripheral pulses palpable. NEUROLOGIC: The patient is awake, alert, and oriented. Cranial nerves are grossly intact. Results Result Diagram: 01/12/17 0541 01/12/17 0541 Results 24 hrs Laboratory Tests Test 01/11/17 16:36 01/11/17 17:34 01/11/17 20:58 01/12/17 05:41 Lactic Acid Level 1.0 0.8 Bedside Glucose 197 158 White Blood Count 8.7 Red Blood Count 3.83 L Hemoglobin 11.8 L Hematocrit 33.9 L Mean Corpuscular Volume 88.5 Mean Corpuscular Hemoglobin 30.8 Mean Corpuscular Hemoglobin Concent 34.8 Red Cell Distribution Width 12.8 Platelet Count 225 Mean Platelet Volume 10.2 Neutrophils % 49.8 Lymphocytes % 41.6 Monocytes % 6.0 Eosinophils % 1.8 Basophils % 0.6 Nucleated Red Blood Cells % 0.0 Neutrophils # (Manual) 4.3 Lymphocytes # 3.6 H Monocytes # 0.5 Eosinophils # 0.2 Basophils # 0.1 Nucleated Red Blood Cells # 0.0 Sodium Level 139 Potassium Level 3.3 L Chloride Level 107 Carbon Dioxide Level 26 Anion Gap 9 Blood Urea Nitrogen 10 Creatinine 0.50 Glucose Level 114 Hemoglobin A1c 8.2 H Calcium Level 8.0 L Phosphorus Level 3.2 Magnesium Level 1.7 Total Bilirubin 0.2 Direct Bilirubin 0.00 Indirect Bilirubin 0.2 Aspartate Amino Transf (AST/SGOT) 25 Alanine Aminotransferase (ALT/SGPT) 43 Alkaline Phosphatase 60 Total Protein 6.5 Albumin 3.4 Globulin 3.10 Albumin/Globulin Ratio 1.09 Triglycerides Level 110 Cholesterol Level 113 LDL Cholesterol, Calculated 63 HDL Cholesterol 28 L Cholesterol/HDL Ratio 4.0 Thyroid Stimulating Hormone (TSH) 2.280 Free Thyroxine 1.07 Test 01/12/17 07:55 01/12/17 11:42 Bedside Glucose 160 193 Medications Medications Current Medications Sodium Chloride (NS) 1,000 ml @ 100 mls/hr Q10H IV Last administered on t 11:50; Admin Dose 100 MLS/HR; Start 01/11/17 at 16:09 Metoclopramide HCl (Reglan) 10 mg Q6H PRN IV NAUSEA AND/OR VOMITING; Start 01/11 at 16:30 Acetaminophen/ Hydrocodone Bitart ([place] (5/325)) 1 tab Q6H PRN PO MODERATE PAIN LEVEL 4-6 Last administered on 01/12/17 11:38; Admin Dose 1 TAB; Start 01/11 at 16:30 Morphine Sulfate (morphine) 2 mg Q4H PRN IV SEVERE PAIN LEVEL 7-10 Last administered on 01/12/17 08:07; Admin Dose 2 MG; Start 01/11/17 at 16:30 Famotidine (Pepcid) 20 mg Q12 PO Last administered on 01/12/17 08:06; Admin Dose 20 MG; Start 01/11/17 at 21:00 Enoxaparin Sodium (Lovenox) 40 mg DAILY SC Last administered on 01/12/17 08:06 ; Admin Dose 40 MG; Start 01/12/17 at 09:00 Fluoxetine HCl (Prozac) 20 mg DAILY PO Last administered on 01/12/17 08:06; Admin Dose 20 MG; Start 01/12/17 at 09:00 Lisinopril (Zestril) 10 mg BID PO Last administered on 01/12/17 08:06; Admin Dose 10 MG; Start 01/11/17 at 21:00 Pregabalin (Lyrica) 75 mg BID PO Last administered on 01/12/17 08:06; Admin Dose 75 MG; Start 01/11/17 at 21:00 Meloxicam (Mobic) 15 mg DAILY PO Last administered on 01/12/17 08:06; Admin Dose 15 MG; Start 01/12/17 at 09:00 Insulin Glargine (Lantus) 12 unit DAILY@08 SC Last administered on 01/12/17 07: 59; Admin Dose 12 UNIT; Start 01/11/17 at 21:00 Diagnostic Test (Pha) (Accu-Chek) 1 ea 02 XX ; Start 01/12/17 at 02:00 Miscellaneous Information 1 ea NOTE XX ; Start 01/11/17 at 16:30 Glucose (Glutose) 15 gm Q15M PRN PO DECREASED GLUCOSE; Start 01/11/17 at 16:30 Glucose (Glutose) 22.5 gm Q15M PRN PO DECREASED GLUCOSE; Start 01/11/17 at 16:30 Dextrose (D50w Syringe) 25 ml Q15M PRN IV DECREASED GLUCOSE; Start 01/11/17 at 16:30 Dextrose (D50w Syringe) 50 ml Q15M PRN IV DECREASED GLUCOSE; Start 01/11/17 at 16:30 Glucagon (Glucagen) 1 mg Q15M PRN IM DECREASED GLUCOSE; Start 01/11/17 at 16:30 Glucose 15 gm 15 gm Q15M PRN BUCCAL DECREASED GLUCOSE; Start 01/11/17 at 16:30 Ceftriaxone Sodium (Rocephin) 50 ml @ 100 mls/hr Q24H IVPB Last administered on 01/11/17t 17:35; Admin Dose 100 MLS/HR; Start 01/11/17 at 17:00 KIMBERLY VELAZQUEZ NP Jan 12, 2017 13:54
--- NOTE | 2017-01-12 15:26 | CONS ---
Date/Time of Note Date/Time of Note DATE: 01/12/17 TIME: 15:08 Assessment/Plan Assessment/Plan Additional Assessment/Plan Assessment * Abdominal pain/diarrhea * Intractable nausea nad vomiting * Diabetes mellitus * H/O back pain * H/O melanoma * H/O cholecystectomy Plan * adequate hydration * pain control * stool for c difficile * may have clear liquids Consultation Date/Type/Reason Admit Date/Time Jan 11, 2017 at 14:33 Date of Consultation: Jan 12, 2017 Type of Consultation: gastroenterology Reason for Consultation abdominal pain and diarrhea Referring Provider: KIMBERLY VELAZQUEZ CHILD ATTENDANT Hx of Present Illness 51 year old female with past medical history chronic back pain,depression, diabetes hypertension ,melanoma was transferred to our facility because of abdominal pain diarrhea and vomiting.Patient was seen at [facility] where CT scan revealed no free fluid,free air or abscess,stable 1 cm hypervascular bluish in the left hepatic lobe,fatty change of liver,s/p cholecystectomy,normal appendix ,fluid in colon diarrhea,no significant colonic thickening.Due to insurance issues ,patient was transferred to our institution.Patient was previously admitted last November with same complaint with no significant MRI findings.Presently patient is having on and off colicky abdominal pain bearable ,afebrile with no nausea ,vomiting nor diarrhea.We are still awaiting for stool c difficile determination Past Medical History Medical History: diabetes, urinary tract infection, other (back pain) Past Surgical History Past Surgical Hx: cholecystectomy Family History Significant Family History: no pertinent family hx Social History Smoking Status: Never smoker Exam/Review of Systems Vital Signs Vitals Vital Signs Date Time Temp Pulse Resp B/P Pulse Ox O2 Delivery O2 Flow Rate FiO2 01/12/17 09:03 98.0 72 18 114/68 97 Intake and Output 01/11/17 01/11/17 01/12/17 15:00 23:00 07:00 Intake Total 590 ml 1880 ml Balance 590 ml 1880 ml Exam Constitutional: alert, oriented, well developed Psych: nl mood/affect, no complaints Head: atraumatic, normocephalic Eyes: EOMI, PERRL, nl conjunctiva, nl lids, nl sclera ENMT: nl external ears & nose, nl lips & teeth, nl nasal mucosa & septum Neck: non-tender, supple Respiratory: clear to auscultation, normal air movement Cardiovascular: nl pulses, regular rate and rhythm Gastrointestinal: nl liver, spleen, non-tender, soft Musculoskeletal: nl extremities to inspection, nl gait and stance Extremities: normal pulses Neurological: PREDATORY HUNTER II-XII intact, nl mental status, nl speech, nl strength Skin: nl turgor, No rash or lesions Lymph: nl lymph nodes Results Result Diagram: 01/12/17 0541 01/12/17 0541 Results 24 hrs Laboratory Tests Test 01/11/17 16:36 01/11/17 17:34 01/11/17 20:58 01/12/17 05:41 Lactic Acid Level 1.0 0.8 Bedside Glucose 197 158 White Blood Count 8.7 Red Blood Count 3.83 L Hemoglobin 11.8 L Hematocrit 33.9 L Mean Corpuscular Volume 88.5 Mean Corpuscular Hemoglobin 30.8 Mean Corpuscular Hemoglobin Concent 34.8 Red Cell Distribution Width 12.8 Platelet Count 225 Mean Platelet Volume 10.2 Neutrophils % 49.8 Lymphocytes % 41.6 Monocytes % 6.0 Eosinophils % 1.8 Basophils % 0.6 Nucleated Red Blood Cells % 0.0 Neutrophils # (Manual) 4.3 Lymphocytes # 3.6 H Monocytes # 0.5 Eosinophils # 0.2 Basophils # 0.1 Nucleated Red Blood Cells # 0.0 Sodium Level 139 Potassium Level 3.3 L Chloride Level 107 Carbon Dioxide Level 26 Anion Gap 9 Blood Urea Nitrogen 10 Creatinine 0.50 Glucose Level 114 Hemoglobin A1c 8.2 H Calcium Level 8.0 L Phosphorus Level 3.2 Magnesium Level 1.7 Total Bilirubin 0.2 Direct Bilirubin 0.00 Indirect Bilirubin 0.2 Aspartate Amino Transf (AST/SGOT) 25 Alanine Aminotransferase (ALT/SGPT) 43 Alkaline Phosphatase 60 Total Protein 6.5 Albumin 3.4 Globulin 3.10 Albumin/Globulin Ratio 1.09 Triglycerides Level 110 Cholesterol Level 113 LDL Cholesterol, Calculated 63 HDL Cholesterol 28 L Cholesterol/HDL Ratio 4.0 Thyroid Stimulating Hormone (TSH) 2.280 Free Thyroxine 1.07 Test 01/12/17 07:55 01/12/17 11:42 Bedside Glucose 160 193 Medications Medications Current Medications Sodium Chloride (NS) 1,000 ml @ 100 mls/hr Q10H IV Last administered on t 11:50; Admin Dose 100 MLS/HR; Start 01/11/17 at 16:09 Metoclopramide HCl (Reglan) 10 mg Q6H PRN IV NAUSEA AND/OR VOMITING; Start 01/11 at 16:30 Acetaminophen/ Hydrocodone Bitart ([place] (5/325)) 1 tab Q6H PRN PO MODERATE PAIN LEVEL 4-6 Last administered on 01/12/17 11:38; Admin Dose 1 TAB; Start 01/11 at 16:30 Morphine Sulfate (morphine) 2 mg Q4H PRN IV SEVERE PAIN LEVEL 7-10 Last administered on 01/12/17 08:07; Admin Dose 2 MG; Start 01/11/17 at 16:30 Famotidine (Pepcid) 20 mg Q12 PO Last administered on 01/12/17 08:06; Admin Dose 20 MG; Start 01/11/17 at 21:00 Enoxaparin Sodium (Lovenox) 40 mg DAILY SC Last administered on 01/12/17 08:06 ; Admin Dose 40 MG; Start 01/12/17 at 09:00 Fluoxetine HCl (Prozac) 20 mg DAILY PO Last administered on 01/12/17 08:06; Admin Dose 20 MG; Start 01/12/17 at 09:00 Lisinopril (Zestril) 10 mg BID PO Last administered on 01/12/17 08:06; Admin Dose 10 MG; Start 01/11/17 at 21:00 Pregabalin (Lyrica) 75 mg BID PO Last administered on 01/12/17 08:06; Admin Dose 75 MG; Start 01/11/17 at 21:00 Meloxicam (Mobic) 15 mg DAILY PO Last administered on 01/12/17 08:06; Admin Dose 15 MG; Start 01/12/17 at 09:00 Insulin Glargine (Lantus) 12 unit DAILY@08 SC Last administered on 01/12/17 07: 59; Admin Dose 12 UNIT; Start 01/11/17 at 21:00 Diagnostic Test (Pha) (Accu-Chek) 1 ea 02 XX ; Start 01/12/17 at 02:00 Miscellaneous Information 1 ea NOTE XX ; Start 01/11/17 at 16:30 Glucose (Glutose) 15 gm Q15M PRN PO DECREASED GLUCOSE; Start 01/11/17 at 16:30 Glucose (Glutose) 22.5 gm Q15M PRN PO DECREASED GLUCOSE; Start 01/11/17 at 16:30 Dextrose (D50w Syringe) 25 ml Q15M PRN IV DECREASED GLUCOSE; Start 01/11/17 at 16:30 Dextrose (D50w Syringe) 50 ml Q15M PRN IV DECREASED GLUCOSE; Start 01/11/17 at 16:30 Glucagon (Glucagen) 1 mg Q15M PRN IM DECREASED GLUCOSE; Start 01/11/17 at 16:30 Glucose 15 gm 15 gm Q15M PRN BUCCAL DECREASED GLUCOSE; Start 01/11/17 at 16:30 Ceftriaxone Sodium (Rocephin) 50 ml @ 100 mls/hr Q24H IVPB Last administered on 01/11/17t 17:35; Admin Dose 100 MLS/HR; Start 01/11/17 at 17:00 DMITRY ELAM NP Jan 12, 2017 15:25
[2017-01-12] MEDS: CEFTRIAXONE 1 GM/50 ML (PMX) 50 ML IVPB SCH (16:58)
[2017-01-12 18:38] VITALS: BP 109/64; RESP 20
[2017-01-12 21:11] VITALS: BP 111/64; RESP 18
[2017-01-13] MEDS: SOD CHLORIDE 0.9% 1,000 ML IV SCH ×5 (00:25→22:13)
[2017-01-13] MEDS: morphine 2 MG INJ IV PRN ×3 (00:37→22:15)
[2017-01-13] MEDS: ACCU-CHEK XX SCH (02:00)
[2017-01-13 02:57] VITALS: BP 123/69; RESP 18
[2017-01-13 05:55] LABS: BASOPHIL # 0.1 10^3/ul (0.0-0.1); BASOPHILS % 0.6 % (0.0-2.0); EOSINOPHILS # 0.2 10^3/ul (0.0-0.5); EOSINOPHILS % 2.3 % (0.0-7.0); HEMOGLOBIN 11.5 g/dl (12.0-16.0); LYMPHOCYTES # 3.6 10^3/ul (0.8-2.9); LYMPHOCYTES % 45.7 % (15.0-51.0); MEAN CORPUSCULAR HEMOGLOBIN 30.7 pg (29.0-33.0); MEAN CORPUSCULAR HGB CONC 34.8 g/dl (32.0-37.0); MEAN CORPUSCULAR VOLUME 88.2 fl (82.0-101.0); MEAN PLATELET VOLUME 10.5 fl (7.4-10.4); MONOCYTE # 0.4 10^3/ul (0.3-0.9); MONOCYTES % 5.7 % (0.0-11.0); NEUTROPHILS % 45.6 % (39.0-77.0); PLATELET COUNT 229 10^3/UL (140-415); RED BLOOD COUNT 3.74 10^6/ul (4.20-5.40); RED CELL DISTRIBUTION WIDTH 12.8 % (11.5-14.5); WHITE BLOOD COUNT 7.8 10^3/ul (4.8-10.8)
[2017-01-13 06:14] LABS: PARTIAL THROMBOPLASTIN TIME 26.4 Sec (25.0-35.0); PROTIME 13.2 Sec (12.2-14.2)
[2017-01-13 06:19] LABS: MAGNESIUM 1.7 mg/dl (1.7-2.5); PHOSPHORUS 3.4 mg/dl (2.5-4.9)
[2017-01-13 06:26] LABS: CALCIUM 8.4 mg/dl (8.4-10.2); CREATININE 0.46 mg/dl (0.44-1.00); POTASSIUM 3.8 mmol/L (3.5-5.1)
[2017-01-13] MEDS: FAMOTIDINE 20 MG TAB PO SCH ×2 (08:28→22:14)
[2017-01-13] MEDS: PREGABALIN 75 MG CAP PO SCH ×2 (08:28→22:14)
[2017-01-13] MEDS: FLUOXETINE 20 MG CAP PO SCH (08:28)
[2017-01-13] MEDS: MELOXICAM 15 MG TAB PO SCH (08:28)
[2017-01-13] MEDS: LISINOPRIL 10 MG TAB PO SCH ×2 (08:29→22:13)
[2017-01-13] MEDS: INSULIN GLARGINE [LANtus] 3 ML PEN SC SCH (08:30)
[2017-01-13] MEDS: INSULIN ASPART [NOVOLOG] 3 ML PEN SC SCH ×7 (08:31→22:23)
[2017-01-13] MEDS: ENOXAPARIN 40 MG/0.4 ML SYG SC SCH (08:33)
[2017-01-13 12:37] VITALS: BP 120/75; RESP 18
--- NOTE | 2017-01-13 13:49 | PN ---
Date/Time of Note Date/Time of Note DATE: 01/13/17 TIME: 13:46 Assessment/Plan VTE Prophylaxis VTE Prophylaxis Intervention: SCD's Lines/Catheters IV Catheter Type (from Nrsg): Saline Lock Assessment/Plan Assessment/Plan Assessment * Abdominal pain * Diarrhea resolve * Intractable nausea and vomiting resolved * Diabetes mellitus * H/O back pain * H/O melanoma * H/O cholecystectomy Plan * adequate hydration * pain control * may have clear liquids Subjective 24 Hr Interval Summary Free Text/Dictation * course reviewed with RN * Patient seen and examined * No bowel movement still with in and off abdominal pain Exam/Review of Systems Vital Signs Vitals Vital Signs Date Time Temp Pulse Resp B/P Pulse Ox O2 Delivery O2 Flow Rate FiO2 01/13/17 12:37 98.1 67 18 120/75 98 Intake and Output 01/12/17 01/12/17 01/13/17 15:00 23:00 07:00 Intake Total 700 ml 1410 ml 1640 ml Balance 700 ml 1410 ml 1640 ml Exam Constitutional: alert, oriented Head: atraumatic, normocephalic Neck: non-tender, supple Respiratory: clear to auscultation, normal air movement Cardiovascular: nl pulses, regular rate and rhythm Gastrointestinal: non-tender, soft Musculoskeletal: nl extremities to inspection, nl gait and stance Extremities: normal pulses Neurological: nl speech, nl strength Skin: nl turgor, No rash or lesions Results Result Diagram: 01/13/17 0450 01/13/17 0450 Results 24 hrs Laboratory Tests Test 01/12/17 17:07 01/12/17 21:11 01/13/17 04:50 01/13/17 08:05 Bedside Glucose 165 139 181 White Blood Count 7.8 Red Blood Count 3.74 L Hemoglobin 11.5 L Hematocrit 33.0 L Mean Corpuscular Volume 88.2 Mean Corpuscular Hemoglobin 30.7 Mean Corpuscular Hemoglobin Concent 34.8 Red Cell Distribution Width 12.8 Platelet Count 229 Mean Platelet Volume 10.5 H Neutrophils % 45.6 Lymphocytes % 45.7 Monocytes % 5.7 Eosinophils % 2.3 Basophils % 0.6 Nucleated Red Blood Cells % 0.0 Neutrophils # (Manual) 3.5 Lymphocytes # 3.6 H Monocytes # 0.4 Eosinophils # 0.2 Basophils # 0.1 Nucleated Red Blood Cells # 0.0 Prothrombin Time 13.2 Prothrombin Time Ratio 1.0 INR International Normalized Ratio 1.00 Activated Partial Thromboplast Time 26.4 Sodium Level 140 Potassium Level 3.8 Chloride Level 108 Carbon Dioxide Level 26 Anion Gap 10 Blood Urea Nitrogen 7 Creatinine 0.46 Glucose Level 156 Calcium Level 8.4 Phosphorus Level 3.4 Magnesium Level 1.7 Test 01/13/17 12:10 Bedside Glucose 199 Medications Medications Current Medications Sodium Chloride (NS) 1,000 ml @ 100 mls/hr Q10H IV Last administered on 11:47; Admin Dose 100 MLS/HR; Start 01/11/17 at 16:09 Metoclopramide HCl (Reglan) 10 mg Q6H PRN IV NAUSEA AND/OR VOMITING; Start 01/11 at 16:30 Acetaminophen/ Hydrocodone Bitart ([place] (5/325)) 1 tab Q6H PRN PO MODERATE PAIN LEVEL 4-6 Last administered on 01/12/17 11:38; Admin Dose 1 TAB; Start 01/11 at 16:30 Morphine Sulfate (morphine) 2 mg Q4H PRN IV SEVERE PAIN LEVEL 7-10 Last administered on 01/13/17 11:47; Admin Dose 2 MG; Start 01/11/17 at 16:30 Famotidine (Pepcid) 20 mg Q12 PO Last administered on 01/13/17 08:28; Admin Dose 20 MG; Start 01/11/17 at 21:00 Enoxaparin Sodium (Lovenox) 40 mg DAILY SC Last administered on 01/13/17 08:33 ; Admin Dose 40 MG; Start 01/12/17 at 09:00 Fluoxetine HCl (Prozac) 20 mg DAILY PO Last administered on 01/13/17 08:28; Admin Dose 20 MG; Start 01/12/17 at 09:00 Lisinopril (Zestril) 10 mg BID PO Last administered on 01/13/17 08:29; Admin Dose 10 MG; Start 01/11/17 at 21:00 Pregabalin (Lyrica) 75 mg BID PO Last administered on 01/13/17 08:28; Admin Dose 75 MG; Start 01/11/17 at 21:00 Meloxicam (Mobic) 15 mg DAILY PO Last administered on 01/13/17 08:28; Admin Dose 15 MG; Start 01/12/17 at 09:00 Insulin Glargine (Lantus) 12 unit DAILY@08 SC Last administered on 01/13/17 08: 30; Admin Dose 12 UNIT; Start 01/11/17 at 21:00 Diagnostic Test (Pha) (Accu-Chek) 1 ea 02 XX ; Start 01/12/17 at 02:00 Miscellaneous Information 1 ea NOTE XX ; Start 01/11/17 at 16:30 Glucose (Glutose) 15 gm Q15M PRN PO DECREASED GLUCOSE; Start 01/11/17 at 16:30 Glucose (Glutose) 22.5 gm Q15M PRN PO DECREASED GLUCOSE; Start 01/11/17 at 16:30 Dextrose (D50w Syringe) 25 ml Q15M PRN IV DECREASED GLUCOSE; Start 01/11/17 at 16:30 Dextrose (D50w Syringe) 50 ml Q15M PRN IV DECREASED GLUCOSE; Start 01/11/17 at 16:30 Glucagon (Glucagen) 1 mg Q15M PRN IM DECREASED GLUCOSE; Start 01/11/17 at 16:30 Glucose 15 gm 15 gm Q15M PRN BUCCAL DECREASED GLUCOSE; Start 01/11/17 at 16:30 Ceftriaxone Sodium (Rocephin) 50 ml @ 100 mls/hr Q24H IVPB Last administered on 01/12/17 16:58; Admin Dose 100 MLS/HR; Start 01/11/17 at 17:00 DMITRY ELAM NP Jan 13, 2017 13:49
--- NOTE | 2017-01-13 14:26 | PN ---
Date/Time of Note Date/Time of Note DATE: 01/13/17 TIME: 14:23 Assessment/Plan VTE Prophylaxis VTE Prophylaxis Intervention: LMWH Lines/Catheters IV [facility]from [facility] Saline Lock Assessment/Plan Chief Complaint/Hosp Course 1. Abdominal pain. Etiology unclear. CT scan of the abdomen and pelvis from outside facility has been negative for any acute findings. The patient had positive urinalysis. Urine cultures negative from this hospital. We will try to obtain cultures from the referring facility. Neurology following. 2. Positive urinalysis with possible urinary tract infection. Urine cultures negative. Continue empiric antibiotics. Obtain cultures from [facility]. 3. Type 2 diabetes mellitus. Continue sliding scale insulin along with basal insulin and pre-meal insulin. 4. Essential hypertension. The patient will be continued on antihypertensives. 5. Depression. The patient will be continued on SSRIs. 6. Chronic back pain. The patient will be continued on pain medications. 7. Fluids, electrolytes, and nutrition. Carbohydrate controlled diet. 8. DVT prophylaxis. Subcutaneous Lovenox. 9. Gastrointestinal prophylaxis. Histamine 2 receptor blockers. 10. Plan. Continue pain control. Continue empiric antibiotics. Obtain urine studies and blood studies from [facility]. Await further recommendations from gastroenterology. Case discussed with . Problems: Subjective 24 Hr Interval Summary Free Text/Dictation Denies any diarrhea. Continues to have abdominal pain. Continues to have nausea. Remains afebrile. Exam/Review of Systems Vital Signs Vitals Vital Signs Date Time Temp Pulse Resp B/P Pulse Ox O2 Delivery O2 Flow Rate FiO2 01/13/17 12:37 98.1 67 18 120/75 98 Intake and Output 01/12/17 01/12/17 01/13/17 15:00 23:00 07:00 Intake Total 700 ml 1410 ml 1640 ml Balance 700 ml 1410 ml 1640 ml Exam GENERAL APPEARANCE: A 51-year-old, female, lying in bed, in no apparent distress. HEENT: Normocephalic and atraumatic. Eyes anicteric sclerae. Conjunctivae clear. ENT: Nasal septal mucosa is dry. NECK: Supple. No JVD noted. RESPIRATORY: Bilaterally clear to auscultation. No adventitious breath sounds. No use of accessory muscle respiration. CARDIAC: Regular rate and rhythm. S1-S2 heard. ABDOMEN: Soft. Periumbilical tenderness and tenderness in the right upper quadrant, no guarding. GENITOURINARY: Deferred. EXTREMITIES: No cyanosis, no clubbing, no edema. Peripheral pulses palpable. NEUROLOGIC: The patient is awake, alert, and oriented. Cranial nerves are grossly intact. Results Result Diagram: 01/13/17 0450 01/13/17 0450 Results 24 hrs Laboratory Tests Test 01/12/17 17:07 01/12/17 21:11 01/13/17 04:50 01/13/17 08:05 Bedside Glucose 165 139 181 White Blood Count 7.8 Red Blood Count 3.74 L Hemoglobin 11.5 L Hematocrit 33.0 L Mean Corpuscular Volume 88.2 Mean Corpuscular Hemoglobin 30.7 Mean Corpuscular Hemoglobin Concent 34.8 Red Cell Distribution Width 12.8 Platelet Count 229 Mean Platelet Volume 10.5 H Neutrophils % 45.6 Lymphocytes % 45.7 Monocytes % 5.7 Eosinophils % 2.3 Basophils % 0.6 Nucleated Red Blood Cells % 0.0 Neutrophils # (Manual) 3.5 Lymphocytes # 3.6 H Monocytes # 0.4 Eosinophils # 0.2 Basophils # 0.1 Nucleated Red Blood Cells # 0.0 Prothrombin Time 13.2 Prothrombin Time Ratio 1.0 INR International Normalized Ratio 1.00 Activated Partial Thromboplast Time 26.4 Sodium Level 140 Potassium Level 3.8 Chloride Level 108 Carbon Dioxide Level 26 Anion Gap 10 Blood Urea Nitrogen 7 Creatinine 0.46 Glucose Level 156 Calcium Level 8.4 Phosphorus Level 3.4 Magnesium Level 1.7 Test 01/13/17 12:10 Bedside Glucose 199 Medications Medications Current Medications Sodium Chloride (NS) 1,000 ml @ 100 mls/hr Q10H IV Last administered on 11:47; Admin Dose 100 MLS/HR; Start 01/11/17 at 16:09 Metoclopramide HCl (Reglan) 10 mg Q6H PRN IV NAUSEA AND/OR VOMITING; Start 01/11 at 16:30 Acetaminophen/ Hydrocodone Bitart ([place] (5/325)) 1 tab Q6H PRN PO MODERATE PAIN LEVEL 4-6 Last administered on 01/12/17 11:38; Admin Dose 1 TAB; Start 01/11 at 16:30 Morphine Sulfate (morphine) 2 mg Q4H PRN IV SEVERE PAIN LEVEL 7-10 Last administered on 01/13/17 11:47; Admin Dose 2 MG; Start 01/11/17 at 16:30 Famotidine (Pepcid) 20 mg Q12 PO Last administered on 01/13/17 08:28; Admin Dose 20 MG; Start 01/11/17 at 21:00 Enoxaparin Sodium (Lovenox) 40 mg DAILY SC Last administered on 01/13/17 08:33 ; Admin Dose 40 MG; Start 01/12/17 at 09:00 Fluoxetine HCl (Prozac) 20 mg DAILY PO Last administered on 01/13/17 08:28; Admin Dose 20 MG; Start 01/12/17 at 09:00 Lisinopril (Zestril) 10 mg BID PO Last administered on 01/13/17 08:29; Admin Dose 10 MG; Start 01/11/17 at 21:00 Pregabalin (Lyrica) 75 mg BID PO Last administered on 01/13/17 08:28; Admin Dose 75 MG; Start 01/11/17 at 21:00 Meloxicam (Mobic) 15 mg DAILY PO Last administered on 01/13/17 08:28; Admin Dose 15 MG; Start 01/12/17 at 09:00 Insulin Glargine (Lantus) 12 unit DAILY@08 SC Last administered on 01/13/17 08: 30; Admin Dose 12 UNIT; Start 01/11/17 at 21:00 Diagnostic Test (Pha) (Accu-Chek) 1 ea 02 XX ; Start 01/12/17 at 02:00 Miscellaneous Information 1 ea NOTE XX ; Start 01/11/17 at 16:30 Glucose (Glutose) 15 gm Q15M PRN PO DECREASED GLUCOSE; Start 01/11/17 at 16:30 Glucose (Glutose) 22.5 gm Q15M PRN PO DECREASED GLUCOSE; Start 01/11/17 at 16:30 Dextrose (D50w Syringe) 25 ml Q15M PRN IV DECREASED GLUCOSE; Start 01/11/17 at 16:30 Dextrose (D50w Syringe) 50 ml Q15M PRN IV DECREASED GLUCOSE; Start 01/11/17 at 16:30 Glucagon (Glucagen) 1 mg Q15M PRN IM DECREASED GLUCOSE; Start 01/11/17 at 16:30 Glucose 15 gm 15 gm Q15M PRN BUCCAL DECREASED GLUCOSE; Start 01/11/17 at 16:30 Ceftriaxone Sodium (Rocephin) 50 ml @ 100 mls/hr Q24H IVPB Last administered on 01/12/17t 16:58; Admin Dose 100 MLS/HR; Start 01/11/17 at 17:00 KIMBERLY VELAZQUEZ NP Jan 13, 2017 14:26
[2017-01-13 16:41] LABS: IRON 79 ug/dl (35-150)
[2017-01-13 16:50] LABS: TOTAL IRON BINDING CAPACITY 275 ug/dl (241-421)
[2017-01-13 17:05] VITALS: BP 104/61; RESP 20
[2017-01-13] MEDS: CEFTRIAXONE 1 GM/50 ML (PMX) 50 ML IVPB SCH (17:29)
[2017-01-13 21:03] VITALS: BP 139/86; RESP 18
[2017-01-14] MEDS: ACCU-CHEK XX SCH (02:00)
[2017-01-14 03:17] VITALS: BP 118/75; RESP 18
[2017-01-14] MEDS: morphine 2 MG INJ IV PRN ×4 (07:41→21:07)
[2017-01-14 07:55] VITALS: BP 134/76; RESP 18
[2017-01-14] MEDS: INSULIN ASPART [NOVOLOG] 3 ML PEN SC SCH ×7 (07:57→21:00)
[2017-01-14] MEDS: INSULIN GLARGINE [LANtus] 3 ML PEN SC SCH (07:59)
[2017-01-14] MEDS: SOD CHLORIDE 0.9% 1,000 ML IV SCH ×3 (08:47→20:57)
[2017-01-14] MEDS: ENOXAPARIN 40 MG/0.4 ML SYG SC SCH (08:48)
[2017-01-14] MEDS: LISINOPRIL 10 MG TAB PO SCH ×2 (08:48→21:15)
[2017-01-14] MEDS: MELOXICAM 15 MG TAB PO SCH (08:48)
[2017-01-14] MEDS: FAMOTIDINE 20 MG TAB PO SCH ×2 (08:48→21:13)
[2017-01-14] MEDS: FLUOXETINE 20 MG CAP PO SCH (08:48)
[2017-01-14] MEDS: PREGABALIN 75 MG CAP PO SCH ×2 (08:49→21:13)
--- NOTE | 2017-01-14 13:02 | PN ---
Date/Time of Note Date/Time of Note DATE: 01/14/17 TIME: 13:01 Assessment/Plan VTE Prophylaxis VTE Prophylaxis Intervention: LMWH Lines/Catheters IV Catheter Type (from [facility]): Saline Lock Assessment/Plan Chief Complaint/Hosp Course 1. Abdominal pain. Etiology unclear. CT scan of the abdomen and pelvis from outside facility has been negative for any acute findings. The patient had positive urinalysis. Urine cultures negative from this hospital. We will try to obtain cultures from the referring facility. Neurology following. 2. Positive urinalysis with possible urinary tract infection. Urine cultures negative. Continue empiric antibiotics. Obtain cultures from [facility]. 3. Type 2 diabetes mellitus. Continue sliding scale insulin along with basal insulin and pre-meal insulin. 4. Essential hypertension. The patient will be continued on antihypertensives. 5. Depression. The patient will be continued on SSRIs. 6. Chronic back pain. The patient will be continued on pain medications. 7. Fluids, electrolytes, and nutrition. Carbohydrate controlled diet. 8. DVT prophylaxis. Subcutaneous Lovenox. 9. Gastrointestinal prophylaxis. Histamine 2 receptor blockers. 10. Plan. Continue pain control. Continue empiric antibiotics. Obtain urine studies and blood studies from [facility]. Await further recommendations from gastroenterology. Case discussed with . Problems: Subjective 24 Hr Interval Summary Free Text/Dictation The patient continues to have abdominal pain. No bowel movements yet. Exam/Review of Systems Vital Signs Vitals Vital Signs Date Time Temp Pulse Resp B/P Pulse Ox O2 Delivery O2 Flow Rate FiO2 01/14/17 07:55 97.8 62 18 134/76 97 Intake and Output 01/13/17 01/13/17 01/14/17 15:00 23:00 07:00 Intake Total 560 ml 1480 ml 1180 ml Balance 560 ml 1480 ml 1180 ml Exam GENERAL APPEARANCE: A 51-year-old, female, lying in bed, in no apparent distress. HEENT: Normocephalic and atraumatic. Eyes anicteric sclerae. Conjunctivae clear. ENT: Nasal septal mucosa is dry. NECK: Supple. No JVD noted. RESPIRATORY: Bilaterally clear to auscultation. No adventitious breath sounds. No use of accessory muscle respiration. CARDIAC: Regular rate and rhythm. S1-S2 heard. ABDOMEN: Soft. Periumbilical tenderness and tenderness in the right upper quadrant, no guarding. GENITOURINARY: Deferred. EXTREMITIES: No cyanosis, no clubbing, no edema. Peripheral pulses palpable. NEUROLOGIC: The patient is awake, alert, and oriented. Cranial nerves are grossly intact. Results Result Diagram: 01/13/17 0450 01/13/17 0450 Results 24 hrs Laboratory Tests Test 01/13/17 15:21 01/13/17 17:17 01/13/17 22:19 01/14/17 02:04 Iron Level 79 Total Iron Binding Capacity 275 Percent Iron Saturation 29 Ferritin 91.4 Bedside Glucose 156 227 H 194 Test 01/14/17 07:54 01/14/17 11:59 Bedside Glucose 207 191 Medications Medications Current Medications Sodium Chloride (NS) 1,000 ml @ 100 mls/hr Q10H IV Last administered on 08:47; Admin Dose 100 MLS/HR; Start 01/11/17 at 16:09 Metoclopramide HCl (Reglan) 10 mg Q6H PRN IV NAUSEA AND/OR VOMITING; Start 01/11 at 16:30 Acetaminophen/ Hydrocodone Bitart ([place] (5/325)) 1 tab Q6H PRN PO MODERATE PAIN LEVEL 4-6 Last administered on 01/12/17 11:38; Admin Dose 1 TAB; Start 01/11 at 16:30 Morphine Sulfate (morphine) 2 mg Q4H PRN IV SEVERE PAIN LEVEL 7-10 Last administered on 01/14/17 12:42; Admin Dose 2 MG; Start 01/11/17 at 16:30 Famotidine (Pepcid) 20 mg Q12 PO Last administered on 01/14/17 08:48; Admin Dose 20 MG; Start 01/11/17 at 21:00 Enoxaparin Sodium (Lovenox) 40 mg DAILY SC Last administered on 01/14/17 08:48 ; Admin Dose 40 MG; Start 01/12/17 at 09:00 Fluoxetine HCl (Prozac) 20 mg DAILY PO Last administered on 01/14/17 08:48; Admin Dose 20 MG; Start 01/12/17 at 09:00 Lisinopril (Zestril) 10 mg BID PO Last administered on 01/14/17 08:48; Admin Dose 10 MG; Start 01/11/17 at 21:00 Pregabalin (Lyrica) 75 mg BID PO Last administered on 01/14/17 08:49; Admin Dose 75 MG; Start 01/11/17 at 21:00 Meloxicam (Mobic) 15 mg DAILY PO Last administered on 01/14/17 08:48; Admin Dose 15 MG; Start 01/12/17 at 09:00 Insulin Glargine (Lantus) 12 unit DAILY@08 SC Last administered on 01/14/17 07: 59; Admin Dose 12 UNIT; Start 01/11/17 at 21:00 Diagnostic Test (Pha) (Accu-Chek) 1 ea 02 XX ; Start 01/12/17 at 02:00 Miscellaneous Information 1 ea NOTE XX ; Start 01/11/17 at 16:30 Glucose (Glutose) 15 gm Q15M PRN PO DECREASED GLUCOSE; Start 01/11/17 at 16:30 Glucose (Glutose) 22.5 gm Q15M PRN PO DECREASED GLUCOSE; Start 01/11/17 at 16:30 Dextrose (D50w Syringe) 25 ml Q15M PRN IV DECREASED GLUCOSE; Start 01/11/17 at 16:30 Dextrose (D50w Syringe) 50 ml Q15M PRN IV DECREASED GLUCOSE; Start 01/11/17 at 16:30 Glucagon (Glucagen) 1 mg Q15M PRN IM DECREASED GLUCOSE; Start 01/11/17 at 16:30 Glucose 15 gm 15 gm Q15M PRN BUCCAL DECREASED GLUCOSE; Start 01/11/17 at 16:30 Ceftriaxone Sodium (Rocephin) 50 ml @ 100 mls/hr Q24H IVPB Last administered on 01/13/17 17:29; Admin Dose 100 MLS/HR; Start 01/11/17 at 17:00 KIMBERLY VELAZQUEZ NP Jan 14, 2017 13:02
[2017-01-14 15:39] VITALS: BP 106/66; RESP 18
[2017-01-14] MEDS: CEFTRIAXONE 1 GM/50 ML (PMX) 50 ML IVPB SCH (16:46)
[2017-01-14 19:50] VITALS: BP 121/70; RESP 20
[2017-01-14] MEDS: POLYETHYLENE GLYCOL 17 GM PACKET PO SCH (21:10)
[2017-01-15] MEDS: ACCU-CHEK XX SCH (01:56)
[2017-01-15 02:00] VITALS: BP 119/73; RESP 19
[2017-01-15] MEDS: morphine 2 MG INJ IV PRN ×3 (06:09→22:27)
[2017-01-15] MEDS: SOD CHLORIDE 0.9% 1,000 ML IV SCH ×2 (07:02→17:16)
[2017-01-15 08:07] VITALS: BP 133/76; RESP 16
[2017-01-15] MEDS: INSULIN ASPART [NOVOLOG] 3 ML PEN SC SCH ×7 (08:38→22:40)
[2017-01-15] MEDS: ENOXAPARIN 40 MG/0.4 ML SYG SC SCH (08:40)
[2017-01-15] MEDS: INSULIN GLARGINE [LANtus] 3 ML PEN SC SCH (08:40)
[2017-01-15] MEDS: POLYETHYLENE GLYCOL 17 GM PACKET PO SCH ×2 (08:44→21:00)
[2017-01-15] MEDS: PREGABALIN 75 MG CAP PO SCH ×2 (08:44→22:34)
[2017-01-15] MEDS: FLUOXETINE 20 MG CAP PO SCH (08:44)
[2017-01-15] MEDS: MELOXICAM 15 MG TAB PO SCH (08:44)
[2017-01-15] MEDS: LISINOPRIL 10 MG TAB PO SCH ×2 (08:44→22:35)
[2017-01-15] MEDS: FAMOTIDINE 20 MG TAB PO SCH ×2 (08:44→22:34)
--- NOTE | 2017-01-15 12:31 | PN ---
Date/Time of Note Date/Time of Note DATE: 01/15/17 TIME: 12:28 Assessment/Plan VTE Prophylaxis VTE Prophylaxis Intervention: ambulation Lines/Catheters IV Catheter Type (from Nrsg): Peripheral IV Urinary Cath still in place: No Assessment/Plan Assessment/Plan Assessment * Diffuse abdominal pain Plan * pain control * CT abdomen/pelvis with contrast IV/PO * Case discuseed with Dr Barry * further orsers will depend on clinical course Subjective 24 Hr Interval Summary Free Text/Dictation * course reviewed with RN * Patient seen and examined * still complaining of on and off abdominal pain Exam/Review of Systems Vital Signs Vitals Vital Signs Date Time Temp Pulse Resp B/P Pulse Ox O2 Delivery O2 Flow Rate FiO2 01/15/17 08:07 98.1 58 16 133/76 97 Intake and Output 01/14/17 01/14/17 01/15/17 15:00 23:00 07:00 Intake Total 300 ml 1320 ml 1700 ml Balance 300 ml 1320 ml 1700 ml Exam Constitutional: alert, oriented Neck: non-tender, supple Respiratory: clear to auscultation, normal air movement Cardiovascular: nl pulses, regular rate and rhythm Gastrointestinal: bowel sounds, distended, soft, tender, No rebound or guarding Extremities: normal pulses Neurological: nl speech, nl strength Skin: nl turgor, No rash or lesions Results Result Diagram: 01/13/17 04501/13/17 0450 Results 24 hrs Laboratory Tests Test 01/14/17 16:56 01/14/17 21:18 01/15/17 07:55 01/15/17 11:49 Bedside Glucose 134 169 164 229 H Medications Medications Current Medications Sodium Chloride (NS) 1,000 ml @ 100 mls/hr Q10H IV Last administered on 07:02; Admin Dose 100 MLS/HR; Start 01/11/17 at 16:09 Metoclopramide HCl (Reglan) 10 mg Q6H PRN IV NAUSEA AND/OR VOMITING; Start 01/11 at 16:30 Acetaminophen/ Hydrocodone Bitart ([place] (5/325)) 1 tab Q6H PRN PO MODERATE PAIN LEVEL 4-6 Last administered on 01/12/17 11:38; Admin Dose 1 TAB; Start 01/11 at 16:30 Morphine Sulfate (morphine) 2 mg Q4H PRN IV SEVERE PAIN LEVEL 7-10 Last administered on 01/15/17 11:44; Admin Dose 2 MG; Start 01/11/17 at 16:30 Famotidine (Pepcid) 20 mg Q12 PO Last administered on 01/15/17 08:44; Admin Dose 20 MG; Start 01/11/17 at 21:00 Enoxaparin Sodium (Lovenox) 40 mg DAILY SC Last administered on 01/15/17 08:40 ; Admin Dose 40 MG; Start 01/12/17 at 09:00 Fluoxetine HCl (Prozac) 20 mg DAILY PO Last administered on 01/15/17 08:44; Admin Dose 20 MG; Start 01/12/17 at 09:00 Lisinopril (Zestril) 10 mg BID PO Last administered on 01/15/17 08:44; Admin Dose 10 MG; Start 01/11/17 at 21:00 Pregabalin (Lyrica) 75 mg BID PO Last administered on 01/15/17 08:44; Admin Dose 75 MG; Start 01/11/17 at 21:00 Meloxicam (Mobic) 15 mg DAILY PO Last administered on 01/15/17 08:44; Admin Dose 15 MG; Start 01/12/17 at 09:00 Insulin Glargine (Lantus) 12 unit DAILY@08 SC Last administered on 01/15/17 08: 40; Admin Dose 12 UNIT; Start 01/11/17 at 21:00 Diagnostic Test (Pha) (Accu-Chek) 1 ea 02 XX ; Start 01/12/17 at 02:00 Miscellaneous Information 1 ea NOTE XX ; Start 01/11/17 at 16:30 Glucose (Glutose) 15 gm Q15M PRN PO DECREASED GLUCOSE; Start 01/11/17 at 16:30 Glucose (Glutose) 22.5 gm Q15M PRN PO DECREASED GLUCOSE; Start 01/11/17 at 16:30 Dextrose (D50w Syringe) 25 ml Q15M PRN IV DECREASED GLUCOSE; Start 01/11/17 at 16:30 Dextrose (D50w Syringe) 50 ml Q15M PRN IV DECREASED GLUCOSE; Start 01/11/17 at 16:30 Glucagon (Glucagen) 1 mg Q15M PRN IM DECREASED GLUCOSE; Start 01/11/17 at 16:30 Glucose 15 gm 15 gm Q15M PRN BUCCAL DECREASED GLUCOSE; Start 01/11/17 at 16:30 Ceftriaxone Sodium (Rocephin) 50 ml @ 100 mls/hr Q24H IVPB Last administered on 01/14/17 16:46; Admin Dose 100 MLS/HR; Start 01/11/17 at 17:00 Polyethylene Glycol (Miralax) 17 gm BID PO Last administered on 01/15/17 08:44 ; Admin Dose 17 GM; Start 01/14/17 at 21:00 DMITRY ELAM NP Jan 15, 2017 12:31
--- NOTE | 2017-01-15 12:53 | PN ---
Date/Time of Note Date/Time of Note DATE: 01/15/17 TIME: 12:46 Assessment/Plan VTE Prophylaxis VTE Prophylaxis Intervention: LMWH Lines/Catheters IV C[facility]ter Type (from [facility]): Peripheral IV Urinary Cath still in place: No Assessment/Plan Chief Complaint/Hosp Course 1. Abdominal pain. Etiology unclear. CT scan of the abdomen and pelvis from outside facility has been negative for any acute findings. The patient had positive urinalysis. Urine cultures negative from this hospital. Urine and blood cultures from the referring facility was negative. Repeat CT with oral and IV contrast has been ordered. Pending stool studies. 2. Positive urinalysis with possible urinary tract infection. Urine cultures negative. Will DC empiric antibiotics. 3. Type 2 diabetes mellitus. Continue sliding scale insulin along with basal insulin and pre-meal insulin. 4. Essential hypertension. The patient will be continued on antihypertensives. 5. Depression. The patient will be continued on SSRIs. 6. Chronic back pain. The patient will be continued on pain medications. 7. Fluids, electrolytes, and nutrition. Carbohydrate controlled diet. 8. DVT prophylaxis. Subcutaneous Lovenox. 9. Gastrointestinal prophylaxis. Histamine 2 receptor blockers. 10. Plan. Discontinue antibiotics. Continue pain control. Await repeat CT scan of the abdomen and further recommendations from gastroenterology. Case discussed with Dr. Rodriguez. Problems: Subjective 24 Hr Interval Summary Free Text/Dictation Continues to have abdominal pain. Exam/Review of Systems Vital Signs Vitals Vital Signs Date Time Temp Pulse Resp B/P Pulse Ox O2 Delivery O2 Flow Rate FiO2 01/15/17 08:07 98.1 58 16 133/76 97 Intake and Output 01/14/17 01/14/17 01/15/17 15:00 23:00 07:00 Intake Total 300 ml 1320 ml 1700 ml Balance 300 ml 1320 ml 1700 ml Exam GENERAL APPEARANCE: A 51-year-old, female, lying in bed, in no apparent distress. HEENT: Normocephalic and atraumatic. Eyes anicteric sclerae. Conjunctivae clear. ENT: Nasal septal mucosa is dry. NECK: Supple. No JVD noted. RESPIRATORY: Bilaterally clear to auscultation. No adventitious breath sounds. No use of accessory muscle respiration. CARDIAC: Regular rate and rhythm. S1-S2 heard. ABDOMEN: Soft. Periumbilical tenderness and tenderness in the right upper quadrant, no guarding. GENITOURINARY: Deferred. EXTREMITIES: No cyanosis, no clubbing, no edema. Peripheral pulses palpable. NEUROLOGIC: The patient is awake, alert, and oriented. Cranial nerves are grossly intact. Results Result Diagram: 01/13/17 0450 01/13/17 0450 Results 24 hrs Laboratory Tests Test 01/14/17 16:56 01/14/17 21:18 01/15/17 07:55 01/15/17 11:49 Bedside Glucose 134 169 164 229 H Medications Medications Current Medications Sodium Chloride (NS) 1,000 ml @ 100 mls/hr Q10H IV Last administered on 07:02; Admin Dose 100 MLS/HR; Start 01/11/17 at 16:09 Metoclopramide HCl (Reglan) 10 mg Q6H PRN IV NAUSEA AND/OR VOMITING; Start 01/11 at 16:30 Acetaminophen/ Hydrocodone Bitart ([place] (5/325)) 1 tab Q6H PRN PO MODERATE PAIN LEVEL 4-6 Last administered on 01/12/17 11:38; Admin Dose 1 TAB; Start 01/11 at 16:30 Morphine Sulfate (morphine) 2 mg Q4H PRN IV SEVERE PAIN LEVEL 7-10 Last administered on 01/15/17 11:44; Admin Dose 2 MG; Start 01/11/17 at 16:30 Famotidine (Pepcid) 20 mg Q12 PO Last administered on 01/15/17 08:44; Admin Dose 20 MG; Start 01/11/17 at 21:00 Enoxaparin Sodium (Lovenox) 40 mg DAILY SC Last administered on 01/15/17 08:40 ; Admin Dose 40 MG; Start 01/12/17 at 09:00 Fluoxetine HCl (Prozac) 20 mg DAILY PO Last administered on 01/15/17 08:44; Admin Dose 20 MG; Start 01/12/17 at 09:00 Lisinopril (Zestril) 10 mg BID PO Last administered on 01/15/17 08:44; Admin Dose 10 MG; Start 01/11/17 at 21:00 Pregabalin (Lyrica) 75 mg BID PO Last administered on 01/15/17 08:44; Admin Dose 75 MG; Start 01/11/17 at 21:00 Meloxicam (Mobic) 15 mg DAILY PO Last administered on 01/15/17 08:44; Admin Dose 15 MG; Start 01/12/17 at 09:00 Insulin Glargine (Lantus) 12 unit DAILY@08 SC Last administered on 01/15/17 08: 40; Admin Dose 12 UNIT; Start 01/11/17 at 21:00 Diagnostic Test (Pha) (Accu-Chek) 1 ea 02 XX ; Start 01/12/17 at 02:00 Miscellaneous Information 1 ea NOTE XX ; Start 01/11/17 at 16:30 Glucose (Glutose) 15 gm Q15M PRN PO DECREASED GLUCOSE; Start 01/11/17 at 16:30 Glucose (Glutose) 22.5 gm Q15M PRN PO DECREASED GLUCOSE; Start 01/11/17 at 16:30 Dextrose (D50w Syringe) 25 ml Q15M PRN IV DECREASED GLUCOSE; Start 01/11/17 at 16:30 Dextrose (D50w Syringe) 50 ml Q15M PRN IV DECREASED GLUCOSE; Start 01/11/17 at 16:30 Glucagon (Glucagen) 1 mg Q15M PRN IM DECREASED GLUCOSE; Start 01/11/17 at 16:30 Glucose 15 gm 15 gm Q15M PRN BUCCAL DECREASED GLUCOSE; Start 01/11/17 at 16:30 Ceftriaxone Sodium (Rocephin) 50 ml @ 100 mls/hr Q24H IVPB Last administered on 01/14/17 16:46; Admin Dose 100 MLS/HR; Start 01/11/17 at 17:00 Polyethylene Glycol (Miralax) 17 gm BID PO Last administered on 01/15/17 08:44 ; Admin Dose 17 GM; Start 01/14/17 at 21:00 KIMBERLY VELAZQUEZ NP Jan 15, 2017 12:53
[2017-01-15] MEDS ORDERED: BARIUM SULF 2% 450 ML BTL (BERRY SMOOTHIE) PO SCH (14:00)
[2017-01-15 15:04] VITALS: BP 113/70; RESP 16
[2017-01-15] MEDS ORDERED: IODIXANOL LOCM 100 ML BTL ONE (19:38)
[2017-01-15] MEDS ORDERED: SOD CHLORIDE 0.9% 100 ML ONE (19:38)
[2017-01-15 20:00] VITALS: BP_SYST 140; BP_SYST 141; BP_DIAS 80; PULSE 60; RESP 18
[2017-01-16 02:00] VITALS: BP 123/63; RESP 18
[2017-01-16] MEDS: ACCU-CHEK XX SCH (02:00)
[2017-01-16] MEDS: morphine 2 MG INJ IV PRN ×5 (02:01→22:36)
[2017-01-16] MEDS: SOD CHLORIDE 0.9% 1,000 ML IV SCH (06:18)
[2017-01-16 06:43] LABS: BASOPHIL # 0.1 10^3/ul (0.0-0.1); BASOPHILS % 0.6 % (0.0-2.0); EOSINOPHILS # 0.2 10^3/ul (0.0-0.5); EOSINOPHILS % 2.5 % (0.0-7.0); HEMATOCRIT 31.5 % (37.0-47.0); LYMPHOCYTES # 3.6 10^3/ul (0.8-2.9); LYMPHOCYTES % 43.5 % (15.0-51.0); MEAN CORPUSCULAR HEMOGLOBIN 31.4 pg (29.0-33.0); MEAN CORPUSCULAR HGB CONC 34.9 g/dl (32.0-37.0); MEAN PLATELET VOLUME 10.8 fl (7.4-10.4); MONOCYTE # 0.5 10^3/ul (0.3-0.9); MONOCYTES % 6.1 % (0.0-11.0); NEUTROPHILS % 47.1 % (39.0-77.0); PLATELET COUNT 240 10^3/UL (140-415); WHITE BLOOD COUNT 8.3 10^3/ul (4.8-10.8)
[2017-01-16 07:03] LABS: ALBUMIN 3.2 g/dl (3.3-4.9); ALBUMIN/GLOBULIN RATIO 1.23; BILIRUBIN,INDIRECT 0.1 mg/dl (0-1.1); BILIRUBIN,TOTAL 0.1 mg/dl (0.2-1.3); CALCIUM 8.9 mg/dl (8.4-10.2); CREATININE 0.49 mg/dl (0.44-1.00); MAGNESIUM 1.8 mg/dl (1.7-2.5); PHOSPHORUS 3.9 mg/dl (2.5-4.9); POTASSIUM 4.2 mmol/L (3.5-5.1); TOTAL PROTEIN 5.8 g/dl (6.1-8.1)
[2017-01-16] MEDS: INSULIN GLARGINE [LANtus] 3 ML PEN SC SCH (08:19)
[2017-01-16] MEDS: INSULIN ASPART [NOVOLOG] 3 ML PEN SC SCH ×7 (08:19→20:32)
[2017-01-16 08:22] VITALS: BP 114/59; RESP 18
--- NOTE | 2017-01-16 08:24 | RADRPT ---
PROCEDURE: CT Abdomen and pelvis with contrast. CLINICAL INDICATION: Diffuse abdominal pain TECHNIQUE: CT scan of the abdomen and pelvis with contrast was performed on a multidetector high-r esolution CT scan. The patient was scanned following the uncomplicated intravenous administration o f 100 ml Visipaque 320. Coronal and sagittal reformatted images were obtained from the axial source images. Standard CT of the abdomen pelvis with contrast protocols were performed. The total exam CTDI equals 17.13 mGy and the total exam DLP equals 952.81 mGy-cm. One or more of the following dose reduction techniques were used: - Automated exposure control. - Adjustment of the mA and/or kV according to patient size. Use of iterative reconstruction technique. COMPARISON: MRI abdomen 11/30/2016 FINDINGS: The liver is mildly enlarged with hepatic fatty infiltration. Again noted is an enhancing lesion in the anterior left lobe of the liver unchanged in size and is consistent with a hemangioma. No new he patic lesions. The spleen pancreas adrenal glands are unremarkable. Status post cholecystectomy without evidence of biliary ductal dilation. The kidneys are normal in size without calcified renal calculi, hydronephrosis or intra renal masses bilaterally. The urinary bladder is unremarkable. The uterus is anteverted anteflexed with an intrauterine device present. There is a 2 cm low density in the left mid uterus and may represent a leiomyoma. A pelvic ultrasound may be helpful for furthe r evaluation. No adnexal masses demonstrated. Negative for intra-abdominal free air, free fluid, abscesses or lymphadenopathy. The stomach, small bowel and large bowel are unremarkable. The appendix is unremarkable. Tiny fat containing umbilical hernia but no herniated hour strangulation. Mild basilar parenchymal s carring. The aorta is unremarkable. There are degenerative changes lower thoracic and lumbar spine b ut no acute osseous findings are osteoblastic/osteolytic lesions. IMPRESSION: 1. Again noted is an enhancing lesion involving the left lobe of the liver consistent with a diane ioma. Mild hepatomegaly and fatty infiltration with no new hepatic lesions. 2. No evidence of calcified urinary calculi or obstructive uropathy. 3. No gastrointestinal disease. Unremarkable appendix. 4. Negative for intra-abdominal free air fluid abscesses or lymphadenopathy. 5. 2 cm low density in the left mid uterus may represent a leiomyoma. A pelvic ultrasound may be he lpful for further evaluation. RPTAT:[id number] Mahnaz Melgoza Physician Date Time Electronically viewed and signed by Mahnaz Melgoza Physician on 01/16/2017 08:24 /
[2017-01-16] MEDS: PREGABALIN 75 MG CAP PO SCH ×2 (08:50→20:33)
[2017-01-16] MEDS: FAMOTIDINE 20 MG TAB PO SCH ×2 (08:50→20:32)
[2017-01-16] MEDS: MELOXICAM 15 MG TAB PO SCH (08:50)
[2017-01-16] MEDS: FLUOXETINE 20 MG CAP PO SCH (08:50)
[2017-01-16] MEDS: LISINOPRIL 10 MG TAB PO SCH ×2 (08:51→20:35)
[2017-01-16] MEDS: ENOXAPARIN 40 MG/0.4 ML SYG SC SCH (08:52)
[2017-01-16] MEDS: POLYETHYLENE GLYCOL 17 GM PACKET PO SCH ×2 (08:57→20:32)
--- NOTE | 2017-01-16 12:48 | PN ---
Date/Time of Note Date/Time of Note DATE: 01/16/17 TIME: 12:44 Assessment/Plan VTE Prophylaxis VTE Prophylaxis Intervention: LMWH Lines/Catheters IV C[facility]ter Type (from [facility] Peripheral IV Urinary Cath still in place: No Assessment/Plan Chief Complaint/Hosp Course 1. Abdominal pain. Etiology unclear. CT scan of the abdomen and pelvis from outside facility has been negative for any acute findings. The patient had positive urinalysis. Urine cultures negative from this hospital. Urine and blood cultures from the referring facility was negative. Repeat CT with oral and IV contrast showed no acute intra-abdominal findings other than an enhancing lesion involving the left lower lobe of the liver consistent with a hemangioma. The CT showed 2 cm low-density in the left mid uterus that may represent a leiomyoma. Will obtain a pelvic ultrasound. 2. Type 2 diabetes mellitus. Continue sliding scale insulin along with basal insulin and pre-meal insulin. 3. Essential hypertension. The patient will be continued on antihypertensives. 4. Depression. The patient will be continued on SSRIs. 5. Chronic back pain. The patient will be continued on pain medications. 6. Fluids, electrolytes, and nutrition. Carbohydrate controlled diet. 7. DVT prophylaxis. Subcutaneous Lovenox. 8. Gastrointestinal prophylaxis. Histamine 2 receptor blockers. 9. Plan. Continue pain control. Obtain pelvic ultrasound. Case discussed with Dr. Rodriguez. Problems: Subjective 24 Hr Interval Summary Free Text/Dictation Continues to have abdominal pain. Exam/Review of Systems Vital Signs Vitals Vital Signs Date Time Temp Pulse Resp B/P Pulse Ox O2 Delivery O2 Flow Rate FiO2 01/16/17 08:22 98.0 59 18 114/59 98 01/15/17 20:00 Room Air Intake and Output 01/15/17 01/15/17 01/16/17 15:00 23:00 07:00 Intake Total 2140 ml 1480 ml Balance 2140 ml 1480 ml Exam GENERAL APPEARANCE: A 51-year-old, female, lying in bed, in no apparent distress. HEENT: Normocephalic and atraumatic. Eyes anicteric sclerae. Conjunctivae clear. ENT: Nasal septal mucosa is dry. NECK: Supple. No JVD noted. RESPIRATORY: Bilaterally clear to auscultation. No adventitious breath sounds. No use of accessory muscle respiration. CARDIAC: Regular rate and rhythm. S1-S2 heard. ABDOMEN: Soft. Periumbilical tenderness and tenderness in the right upper quadrant, no guarding. GENITOURINARY: Deferred. EXTREMITIES: No cyanosis, no clubbing, no edema. Peripheral pulses palpable. NEUROLOGIC: The patient is awake, alert, and oriented. Cranial nerves are grossly intact. Results Result Diagram: 01/16/17 0553 01/16/17 0553 Results 24 hrs Laboratory Tests Test 01/15/17 17:10 01/15/17 22:37 01/16/17 02:06 01/16/17 05:53 Bedside Glucose 124 219 258 H White Blood Count 8.3 Red Blood Count 3.50 L Hemoglobin 11.0 L Hematocrit 31.5 L Mean Corpuscular Volume 90.0 Mean Corpuscular Hemoglobin 31.4 Mean Corpuscular Hemoglobin Concent 34.9 Red Cell Distribution Width 13.0 Platelet Count 240 Mean Platelet Volume 10.8 H Neutrophils % 47.1 Lymphocytes % 43.5 Monocytes % 6.1 Eosinophils % 2.5 Basophils % 0.6 Nucleated Red Blood Cells % 0.0 Neutrophils # (Manual) 3.9 Lymphocytes # 3.6 H Monocytes # 0.5 Eosinophils # 0.2 Basophils # 0.1 Nucleated Red Blood Cells # 0.0 Sodium Level 136 Potassium Level 4.2 Chloride Level 103 Carbon Dioxide Level 29 Anion Gap 8 Blood Urea Nitrogen 8 Creatinine 0.49 Glucose Level 196 Calcium Level 8.9 Phosphorus Level 3.9 Magnesium Level 1.8 Total Bilirubin 0.1 L Direct Bilirubin 0.00 Indirect Bilirubin 0.1 Aspartate Amino Transf (AST/SGOT) 21 Alanine Aminotransferase (ALT/SGPT) 34 Alkaline Phosphatase 73 Total Protein 5.8 L Albumin 3.2 L Globulin 2.60 Albumin/Globulin Ratio 1.23 Test 01/16/17 08:07 01/16/17 12:09 01/16/17 12:11 Bedside Glucose 168 256 H 248 H Medications Medications Current Medications Sodium Chloride (NS) 1,000 ml @ 100 mls/hr Q10H IV Last administered on t 06:18; Admin Dose 100 MLS/HR; Start 01/11/17 at 16:09 Metoclopramide HCl (Reglan) 10 mg Q6H PRN IV NAUSEA AND/OR VOMITING; Start 01/11 at 16:30 Acetaminophen/ Hydrocodone Bitart ([place] (5/325)) 1 tab Q6H PRN PO MODERATE PAIN LEVEL 4-6 Last administered on 01/12/17 11:38; Admin Dose 1 TAB; Start 01/11 at 16:30 Morphine Sulfate (morphine) 2 mg Q4H PRN IV SEVERE PAIN LEVEL 7-10 Last administered on 01/16/17 11:07; Admin Dose 2 MG; Start 01/11/17 at 16:30 Famotidine (Pepcid) 20 mg Q12 PO Last administered on 01/16/17 08:50; Admin Dose 20 MG; Start 01/11/17 at 21:00 Enoxaparin Sodium (Lovenox) 40 mg DAILY SC Last administered on 01/16/17 08:52 ; Admin Dose 40 MG; Start 01/12/17 at 09:00 Fluoxetine HCl (Prozac) 20 mg DAILY PO Last administered on 01/16/17 08:50; Admin Dose 20 MG; Start 01/12/17 at 09:00 Lisinopril (Zestril) 10 mg BID PO Last administered on 01/16/17 08:51; Admin Dose 10 MG; Start 01/11/17 at 21:00 Pregabalin (Lyrica) 75 mg BID PO Last administered on 01/16/17 08:50; Admin Dose 75 MG; Start 01/11/17 at 21:00 Meloxicam (Mobic) 15 mg DAILY PO Last administered on 01/16/17 08:50; Admin Dose 15 MG; Start 01/12/17 at 09:00 Insulin Glargine (Lantus) 12 unit DAILY@08 SC Last administered on 01/16/17 08 :19; Admin Dose 12 UNIT; Start 01/11/17 at 21:00 Diagnostic Test (Pha) (Accu-Chek) 1 ea 02 XX ; Start 01/12/17 at 02:00 Miscellaneous Information 1 ea NOTE XX ; Start 01/11/17 at 16:30 Glucose (Glutose) 15 gm Q15M PRN PO DECREASED GLUCOSE; Start 01/11/17 at 16:30 Glucose (Glutose) 22.5 gm Q15M PRN PO DECREASED GLUCOSE; Start 01/11/17 at 16:30 Dextrose (D50w Syringe) 25 ml Q15M PRN IV DECREASED GLUCOSE; Start 01/11/17 at 16:30 Dextrose (D50w Syringe) 50 ml Q15M PRN IV DECREASED GLUCOSE; Start 01/11/17 at 16:30 Glucagon (Glucagen) 1 mg Q15M PRN IM DECREASED GLUCOSE; Start 01/11/17 at 16:30 Glucose (Glutose) 15 gm Q15M PRN BUCCAL DECREASED GLUCOSE; Start 01/11/17 at 16: 30 Polyethylene Glycol (Miralax) 17 gm BID PO Last administered on 01/15/17t 08:44 ; Admin Dose 17 GM; Start 01/14/17 at 21:00 KIMBERLY VELAZQUEZ NP Jan 16, 2017 12:48
--- NOTE | 2017-01-16 13:56 | PN ---
Date/Time of Note Date/Time of Note DATE: 01/16/17 TIME: 13:50 Assessment/Plan VTE Prophylaxis VTE Prophylaxis Intervention: SCD's Lines/Catheters IV C[facility]ter Type (from [facility] Peripheral IV Urinary Cath still in place: No Assessment/Plan Assessment/Plan Assessment * Diffuse abdominal pain improved probably extraabdominal in origin * CT scan abdomen Again noted is an enhancing lesion involving the left lobe of the liver consistent with a hemangioma. Mild hepatomegaly and fatty infiltration with no new hepatic lesions. . No evidence of calcified urinary calculi or obstructive uropathy. No gastrointestinal disease. Unremarkable appendix. Negative for intra-abdominal free air fluid abscesses or lymphadenopathy. . 2 cm low density in the left mid uterus may represent a leiomyoma. A pelvic ultrasound may be helpful for further evaluation. * Plan * pain control * will sign off follow up as needed * Case discussed with Dr Barry Subjective 24 Hr Interval Summary Free Text/Dictation * course reviewed * patient seen and examined * CT scan 1. Again noted is an enhancing lesion involving the left lobe of the liver consistent with a hemangioma. Mild hepatomegaly and fatty infiltration with no new hepatic lesions. 2. No evidence of calcified urinary calculi or obstructive uropathy. 3. No gastrointestinal disease. Unremarkable appendix. 4. Negative for intra-abdominal free air fluid abscesses or lymphadenopathy. 5. 2 cm low density in the left mid uterus may represent a leiomyoma. A pelvic ultrasound may be helpful for further evaluation. an abdomen and pelvis Exam/Review of Systems Vital Signs Vitals Vital Signs Date Time Temp Pulse Resp B/P Pulse Ox O2 Delivery O2 Flow Rate FiO2 01/16/17 08:22 98.0 59 18 114/59 98 01/15/17 20:00 Room Air Intake and Output 01/15/17 01/15/17 01/16/17 15:00 23:00 07:00 Intake Total 2140 ml 1480 ml Balance 2140 ml 1480 ml Exam Constitutional: alert, oriented Head: normocephalic Eyes: nl conjunctiva Neck: non-tender, supple Respiratory: clear to auscultation, normal air movement Cardiovascular: nl pulses, regular rate and rhythm Gastrointestinal: non-tender, soft Musculoskeletal: nl extremities to inspection, nl gait and stance Extremities: normal pulses Neurological: nl speech, nl strength Skin: nl turgor, rash or lesions Results Result Diagram: 01/16/17 0553 01/16/17 0553 Results 24 hrs Laboratory Tests Test 01/15/17 17:10 01/15/17 22:37 01/16/17 02:06 01/16/17 05:53 Bedside Glucose 124 219 258 H White Blood Count 8.3 Red Blood Count 3.50 L Hemoglobin 11.0 L Hematocrit 31.5 L Mean Corpuscular Volume 90.0 Mean Corpuscular Hemoglobin 31.4 Mean Corpuscular Hemoglobin Concent 34.9 Red Cell Distribution Width 13.0 Platelet Count 240 Mean Platelet Volume 10.8 H Neutrophils % 47.1 Lymphocytes % 43.5 Monocytes % 6.1 Eosinophils % 2.5 Basophils % 0.6 Nucleated Red Blood Cells % 0.0 Neutrophils # (Manual) 3.9 Lymphocytes # 3.6 H Monocytes # 0.5 Eosinophils # 0.2 Basophils # 0.1 Nucleated Red Blood Cells # 0.0 Sodium Level 136 Potassium Level 4.2 Chloride Level 103 Carbon Dioxide Level 29 Anion Gap 8 Blood Urea Nitrogen 8 Creatinine 0.49 Glucose Level 196 Calcium Level 8.9 Phosphorus Level 3.9 Magnesium Level 1.8 Total Bilirubin 0.1 L Direct Bilirubin 0.00 Indirect Bilirubin 0.1 Aspartate Amino Transf (AST/SGOT) 21 Alanine Aminotransferase (ALT/SGPT) 34 Alkaline Phosphatase 73 Total Protein 5.8 L Albumin 3.2 L Globulin 2.60 Albumin/Globulin Ratio 1.23 Test 01/16/17 08:07 01/16/17 12:09 01/16/17 12:11 Bedside Glucose 168 256 H 248 H Medications Medications Current Medications Metoclopramide HCl (Reglan) 10 mg Q6H PRN IV NAUSEA AND/OR VOMITING; Start 01/11 at 16:30 Acetaminophen/ Hydrocodone Bitart ([place] (5/325)) 1 tab Q6H PRN PO MODERATE PAIN LEVEL 4-6 Last administered on 01/12/17 11:38; Admin Dose 1 TAB; Start 01/11 at 16:30 Morphine Sulfate (morphine) 2 mg Q4H PRN IV SEVERE PAIN LEVEL 7-10 Last administered on 01/16/17 11:07; Admin Dose 2 MG; Start 01/11/17 at 16:30 Famotidine (Pepcid) 20 mg Q12 PO Last administered on 01/16/17 08:50; Admin Dose 20 MG; Start 01/11/17 at 21:00 Enoxaparin Sodium (Lovenox) 40 mg DAILY SC Last administered on 01/16/17 08:52 ; Admin Dose 40 MG; Start 01/12/17 at 09:00 Fluoxetine HCl (Prozac) 20 mg DAILY PO Last administered on 01/16/17 08:50; Admin Dose 20 MG; Start 01/12/17 at 09:00 Lisinopril (Zestril) 10 mg BID PO Last administered on 01/16/17 08:51; Admin Dose 10 MG; Start 01/11/17 at 21:00 Pregabalin (Lyrica) 75 mg BID PO Last administered on 01/16/17 08:50; Admin Dose 75 MG; Start 01/11/17 at 21:00 Meloxicam (Mobic) 15 mg DAILY PO Last administered on 01/16/17 08:50; Admin Dose 15 MG; Start 01/12/17 at 09:00 Insulin Glargine (Lantus) 12 unit DAILY@08 SC Last administered on 01/16/17 08 :19; Admin Dose 12 UNIT; Start 01/11/17 at 21:00 Diagnostic Test (Pha) (Accu-Chek) 1 ea 02 XX ; Start 01/12/17 at 02:00 Miscellaneous Information 1 ea NOTE XX ; Start 01/11/17 at 16:30 Glucose (Glutose) 15 gm Q15M PRN PO DECREASED GLUCOSE; Start 01/11/17 at 16:30 Glucose (Glutose) 22.5 gm Q15M PRN PO DECREASED GLUCOSE; Start 01/11/17 at 16:30 Dextrose (D50w Syringe) 25 ml Q15M PRN IV DECREASED GLUCOSE; Start 01/11/17 at 16:30 Dextrose (D50w Syringe) 50 ml Q15M PRN IV DECREASED GLUCOSE; Start 01/11/17 at 16:30 Glucagon (Glucagen) 1 mg Q15M PRN IM DECREASED GLUCOSE; Start 01/11/17 at 16:30 Glucose (Glutose) 15 gm Q15M PRN BUCCAL DECREASED GLUCOSE; Start 01/11/17 at 16: 30 Polyethylene Glycol (Miralax) 17 gm BID PO Last administered on 01/15/17 08:44 ; Admin Dose 17 GM; Start 9/8/17 at 21:00 DMITRY ELAM NP Jan 16, 2017 13:56
[2017-01-16 15:04] VITALS: BP 117/66; RESP 18
[2017-01-16 20:00] VITALS: BP 124/67; RESP 18
[2017-01-17] MEDS: ACCU-CHEK XX SCH (01:29)
[2017-01-17 02:00] VITALS: BP 114/64; RESP 18
[2017-01-17] MEDS: morphine 2 MG INJ IV PRN ×4 (04:00→21:10)
--- NOTE | 2017-01-17 06:54 | RADRPT ---
PROCEDURE: US Pelvis CLINICAL INDICATION: Pelvic pain. TECHNIQUE: Transabdominal sonographic evaluation of the pelvis was performed. COMPARISON: CT, 01/15/2017. FINDINGS: Myometrium is homogeneous in echotexture without fibroids. A Nabothian cyst is suggested within the cervix. Endometrium is normal in thickness without a focal abnormality. An intrauterine device is in place in satisfactory position. There is nonvisualization of the left ovary. The right ovary is within normal limits. No free pelvic fluid. MEASUREMENTS: Uterus: 7.2 x 3.7 x 6.1 cm, anteverted. Endometrium: 0.6 cm. Right ovary size: 3.3 x 1.3 x 1.8 cm IMPRESSION: Nonvisualization of the left ovary without worrisome adnexal cyst or mass demonstrated bilaterally. Intrauterine device is in place in satisfactory position. Transabdominal views demonstrate no definite uterine mass or fibroid. A Nabothian cyst is suggested within the cervix. RPTAT: EE .Yang Simmons MD, Date Time Electronically viewed and signed by .Yang Simmons MD, on 01/17/2017 06:59 .C/
[2017-01-17 07:53] VITALS: BP 90/54; RESP 16
[2017-01-17 08:00] VITALS: BP 123/76; PULSE 61
[2017-01-17] MEDS: INSULIN GLARGINE [LANtus] 3 ML PEN SC SCH (08:57)
[2017-01-17] MEDS: INSULIN ASPART [NOVOLOG] 3 ML PEN SC SCH ×7 (08:58→21:18)
[2017-01-17] MEDS: ENOXAPARIN 40 MG/0.4 ML SYG SC SCH (09:00)
[2017-01-17] MEDS: POLYETHYLENE GLYCOL 17 GM PACKET PO SCH ×2 (09:01→21:10)
[2017-01-17] MEDS: FLUOXETINE 20 MG CAP PO SCH (09:01)
[2017-01-17] MEDS: LISINOPRIL 10 MG TAB PO SCH (09:04)
[2017-01-17] MEDS: PREGABALIN 75 MG CAP PO SCH ×2 (09:04→21:09)
[2017-01-17] MEDS: FAMOTIDINE 20 MG TAB PO SCH ×2 (09:04→21:10)
[2017-01-17] MEDS: MELOXICAM 15 MG TAB PO SCH (09:04)
[2017-01-17 14:26] VITALS: BP 97/56; RESP 16
--- NOTE | 2017-01-17 15:57 | PN ---
Date/Time of Note Date/Time of Note DATE: 01/17/17 TIME: 15:55 Assessment/Plan VTE Prophylaxis VTE Prophylaxis Intervention: LMWH Lines/Catheters IV Catheter Type (from Nrs): Peripheral IV Urinary Cath still in place: No Assessment/Plan Assessment/Plan 1. Acute gastroenteritis, improving, advance diet 2. Type 2 diabetes mellitus. Continue sliding scale insulin along with basal insulin and pre-meal insulin. 3. Essential hypertension. The patient will be continued on antihypertensives. 4. Depression. The patient will be continued on SSRIs. 5. Chronic back pain. The patient will be continued on pain medications. 6. DVT prophylaxis. Subcutaneous Lovenox. Subjective 24 Hr Interval Summary Free Text/Dictation no vomiting, no diarrhea, still with some abdominal pain and nausea Exam/Review of Systems Vital Signs Vitals Vital Signs Date Time Temp Pulse Resp B/P Pulse Ox O2 Delivery O2 Flow Rate FiO2 01/17/17 14:26 98.2 63 16 97/56 97 01/15/17 20:00 Room Air Intake and Output 01/16/17 01/16/17 01/17/17 14:59 22:59 06:59 Intake Total 1400 ml 480 ml Output Total 575 ml Balance 825 ml 480 ml Exam Constitutional: alert, oriented, well developed Psych: nl mood/affect, no complaints Head: atraumatic, normocephalic Eyes: EOMI, PERRL, nl conjunctiva, nl lids ENMT: nl external ears & nose, nl lips & teeth, nl nasal mucosa & septum Neck: non-tender, supple Respiratory: clear to auscultation, normal air movement, No congested cough, No crackles/rales, No diminished breath sounds, No intercostal retraction, No labored breathing, No other, No respirations, No tactile fremitus, No wheezing Cardiovascular: nl pulses, regular rate and rhythm, No S3, No S4, No bruits, No diastolic murmur, No edema, No gallop, No irregular rhythm, No jugular venous distention (JVD), No murmurs/extra sounds, No other, No rub, No systolic murmur Gastrointestinal: nl liver, spleen, soft, tender (mild right sided tenderness) Musculoskeletal: nl extremities to inspection Extremities: normal pulses, No calf tenderness, No clubbing, No cyanosis, No edema, No other, No palpable cord, No pitting pedal edema, No tenderness Neurological: SENIOR SYSTEMS ENGINEER II-XII intact, nl mental status, nl speech, nl strength Skin: nl turgor Results Result Diagram: 01/16/17 0553 01/16/17 0553 Results 24 hrs Laboratory Tests Test 01/16/17 17:29 01/16/17 20:28 01/17/17 01:28 01/17/17 08:00 Bedside Glucose 241 H 253 H 230 H 195 Test 01/17/17 11:15 Bedside Glucose 245 H Medications Medications Current Medications Metoclopramide HCl (Reglan) 10 mg Q6H PRN IV NAUSEA AND/OR VOMITING; Start 01/11 at 16:30 Acetaminophen/ Hydrocodone Bitart ([place] (5/325)) 1 tab Q6H PRN PO MODERATE PAIN LEVEL 4-6 Last administered on 01/12/17 11:38; Admin Dose 1 TAB; Start 01/11 at 16:30 Morphine Sulfate (morphine) 2 mg Q4H PRN IV SEVERE PAIN LEVEL 7-10 Last administered on 01/17/17 11:20; Admin Dose 2 MG; Start 01/11/17 at 16:30 Famotidine (Pepcid) 20 mg Q12 PO Last administered on 01/17/17 09:04; Admin Dose 20 MG; Start 01/11/17 at 21:00 Enoxaparin Sodium (Lovenox) 40 mg DAILY SC Last administered on 01/17/17 09:00 ; Admin Dose 40 MG; Start 01/12/17 at 09:00 Fluoxetine HCl (Prozac) 20 mg DAILY PO Last administered on 01/17/17 09:01; Admin Dose 20 MG; Start 01/12/17 at 09:00 Pregabalin (Lyrica) 75 mg BID PO Last administered on 01/17/17 09:04; Admin Dose 75 MG; Start 01/11/17 at 21:00 Meloxicam (Mobic) 15 mg DAILY PO Last administered on 01/17/17 09:04; Admin Dose 15 MG; Start 01/12/17 at 09:00 Insulin Glargine (Lantus) 12 unit DAILY@08 SC Last administered on 01/17/17 08 :57; Admin Dose 12 UNIT; Start 01/11/17 at 21:00 Diagnostic Test (Pha) (Accu-Chek) 1 ea 02 XX Last administered on 01/17/17 01: 29; Admin Dose 1 EA; Start 01/12/17 at 02:00 Miscellaneous Information 1 ea NOTE XX ; Start 01/11/17 at 16:30 Glucose (Glutose) 15 gm Q15M PRN PO DECREASED GLUCOSE; Start 01/11/17 at 16:30 Glucose (Glutose) 22.5 gm Q15M PRN PO DECREASED GLUCOSE; Start 01/11/17 at 16:30 Dextrose (D50w Syringe) 25 ml Q15M PRN IV DECREASED GLUCOSE; Start 01/11/17 at 16:30 Dextrose (D50w Syringe) 50 ml Q15M PRN IV DECREASED GLUCOSE; Start 01/11/17 at 16:30 Glucagon (Glucagen) 1 mg Q15M PRN IM DECREASED GLUCOSE; Start 01/11/17 at 16:30 Glucose (Glutose) 15 gm Q15M PRN BUCCAL DECREASED GLUCOSE; Start 01/11/17 at 16: 30 Polyethylene Glycol (Miralax) 17 gm BID PO Last administered on 01/17/17 09:01 ; Admin Dose 17 GM; Start 01/14/17 at 21:00 Lisinopril (Zestril) 10 mg DAILY PO ; Start 01/18/17 at 09:00 DARRIUS FIGUEROA MD Jan 17, 2017 15:57
[2017-01-17 19:49] VITALS: BP 150/68; RESP 16
[2017-01-17 21:40] VITALS: BP 119/72
[2017-01-18 02:00] VITALS: BP 114/66; PULSE 75
[2017-01-18] MEDS: ACCU-CHEK XX SCH (02:29)
[2017-01-18] MEDS: morphine 2 MG INJ IV PRN ×5 (02:30→23:40)
[2017-01-18 07:26] LABS: CALCIUM 9.2 mg/dl (8.4-10.2); CREATININE 0.51 mg/dl (0.44-1.00); MAGNESIUM 1.9 mg/dl (1.7-2.5)
[2017-01-18 07:40] VITALS: BP 114/70; RESP 18
[2017-01-18] MEDS: POLYETHYLENE GLYCOL 17 GM PACKET PO SCH ×2 (08:15→20:13)
[2017-01-18] MEDS: INSULIN GLARGINE [LANtus] 3 ML PEN SC SCH (08:17)
[2017-01-18] MEDS: INSULIN ASPART [NOVOLOG] 3 ML PEN SC SCH ×7 (08:19→20:17)
[2017-01-18] MEDS: PREGABALIN 75 MG CAP PO SCH ×2 (08:20→20:13)
[2017-01-18] MEDS: ENOXAPARIN 40 MG/0.4 ML SYG SC SCH (08:20)
[2017-01-18] MEDS: MELOXICAM 15 MG TAB PO SCH (08:20)
[2017-01-18] MEDS: LISINOPRIL 10 MG TAB PO SCH (08:21)
[2017-01-18] MEDS: FAMOTIDINE 20 MG TAB PO SCH ×2 (08:21→20:13)
[2017-01-18] MEDS: FLUOXETINE 20 MG CAP PO SCH (08:21)
[2017-01-18 14:25] VITALS: BP 108/63; RESP 18
--- NOTE | 2017-01-18 14:42 | PN ---
Date/Time of Note Date/Time of Note DATE: 01/18/17 TIME: 14:40 Assessment/Plan VTE Prophylaxis VTE Prophylaxis Intervention: LMWH Lines/Catheters IV Catheter Type (from Nrs): Peripheral IV Urinary Cath still in place: No Assessment/Plan Assessment/Plan 1. Likely acute gastroenteritis, but still with abdominal pain, GI consult 2. Type 2 diabetes mellitus. Continue sliding scale insulin along with basal insulin and pre-meal insulin. 3. Essential hypertension. The patient will be continued on antihypertensives. 4. Depression. The patient will be continued on SSRIs. 5. Chronic back pain. The patient will be continued on pain medications. 6. DVT prophylaxis. Subcutaneous Lovenox. Subjective 24 Hr Interval Summary Free Text/Dictation still with abdominal pain and nausea. no vomiting or diarrhea. no fever or chills. Exam/Review of Systems Vital Signs Vitals Vital Signs Date Time Temp Pulse Resp B/P Pulse Ox O2 Delivery O2 Flow Rate FiO2 01/18/17 14:25 98.1 63 18 108/63 96 01/18/17 02:00 Room Air Intake and Output 01/17/17 01/17/17 01/18/17 15:00 23:00 07:00 Intake Total 180 ml 280 ml Balance 180 ml 280 ml Exam Constitutional: alert, oriented, well developed Head: atraumatic, normocephalic Eyes: EOMI, PERRL, nl conjunctiva, nl lids ENMT: nl external ears & nose, nl lips & teeth, nl nasal mucosa & septum Neck: non-tender, supple Respiratory: clear to auscultation, normal air movement, No congested cough, No crackles/rales, No diminished breath sounds, No intercostal retraction, No labored breathing, No other, No respirations, No tactile fremitus, No wheezing Cardiovascular: nl pulses, regular rate and rhythm Gastrointestinal: nl liver, spleen, soft, tender (diffuse tenderness) Musculoskeletal: nl extremities to inspection Extremities: normal pulses, No calf tenderness, No clubbing, No cyanosis, No edema, No other, No palpable cord, No pitting pedal edema, No tenderness Neurological: ONLINE CONTENT EDITOR II-XII intact, nl mental status, nl speech, nl strength Skin: nl turgor Lymph: nl lymph nodes Results Result Diagram: 01/16/17 0553 01/18/17 0546 Results 24 hrs Laboratory Tests Test 01/17/17:08 01/17/17 21:15 01/18/17 02:27 01/18/17 05:46 Bedside Glucose 166 196 150 Sodium Level 136 Potassium Level 4.0 Chloride Level 102 Carbon Dioxide Level 30 Anion Gap 8 Blood Urea Nitrogen 12 Creatinine 0.51 Glucose Level 146 # Calcium Level 9.2 Magnesium Level 1.9 Test 01/18/17 07:52 01/18/17 11:38 Bedside Glucose 183 186 Medications Medications Current Medications Metoclopramide HCl (Reglan) 10 mg Q6H PRN IV NAUSEA AND/OR VOMITING; Start 01/11 at 16:30 Acetaminophen/ Hydrocodone Bitart ([place] (5/325)) 1 tab Q6H PRN PO MODERATE PAIN LEVEL 4-6 Last administered on 01/12/17 11:38; Admin Dose 1 TAB; Start 01/11 at 16:30 Morphine Sulfate (morphine) 2 mg Q4H PRN IV SEVERE PAIN LEVEL 7-10 Last administered on 01/18/17 11:43; Admin Dose 2 MG; Start 01/11/17 at 16:30 Famotidine (Pepcid) 20 mg Q12 PO Last administered on 01/18/17 08:21; Admin Dose 20 MG; Start 01/11/17 at 21:00 Enoxaparin Sodium (Lovenox) 40 mg DAILY SC Last administered on 01/18/17 08:20 ; Admin Dose 40 MG; Start 01/12/17 at 09:00 Fluoxetine HCl (Prozac) 20 mg DAILY PO Last administered on 01/18/17 08:21; Admin Dose 20 MG; Start 01/12/17 at 09:00 Pregabalin (Lyrica) 75 mg BID PO Last administered on 01/18/17 08:20; Admin Dose 75 MG; Start 01/11/17 at 21:00 Meloxicam (Mobic) 15 mg DAILY PO Last administered on 01/18/17 08:20; Admin Dose 15 MG; Start 01/12/17 at 09:00 Insulin Glargine (Lantus) 12 unit DAILY@08 SC Last administered on 01/18/17 08 :17; Admin Dose 12 UNIT; Start 01/11/17 at 21:00 Diagnostic Test (Pha) (Accu-Chek) 1 ea 02 XX Last administered on 01/18/17 02: 29; Admin Dose 1 EA; Start 01/12/17 at 02:00 Miscellaneous Information 1 ea NOTE XX ; Start 01/11/17 at 16:30 Glucose (Glutose) 15 gm Q15M PRN PO DECREASED GLUCOSE; Start 01/11/17 at 16:30 Glucose (Glutose) 22.5 gm Q15M PRN PO DECREASED GLUCOSE; Start 01/11/17 at 16:30 Dextrose (D50w Syringe) 25 ml Q15M PRN IV DECREASED GLUCOSE; Start 01/11/17 at 16:30 Dextrose (D50w Syringe) 50 ml Q15M PRN IV DECREASED GLUCOSE; Start 01/11/17 at 16:30 Glucagon (Glucagen) 1 mg Q15M PRN IM DECREASED GLUCOSE; Start 01/11/17 at 16:30 Glucose (Glutose) 15 gm Q15M PRN BUCCAL DECREASED GLUCOSE; Start 01/11/17 at 16: 30 Polyethylene Glycol (Miralax) 17 gm BID PO Last administered on 01/18/17 08:15 ; Admin Dose 17 GM; Start 01/14/17 at 21:00 Lisinopril (Zestril) 10 mg DAILY PO Last administered on 01/18/17 08:21; Admin Dose 10 MG; Start 01/18/17 at 09:00 DARRIUS FIGUEROA MD Jan 18, 2017 14:42
[2017-01-18 19:55] VITALS: BP 111/63; RESP 20
[2017-01-19] MEDS: ACCU-CHEK XX SCH (01:14)
[2017-01-19 02:15] VITALS: BP 120/69; RESP 18
[2017-01-19] MEDS: morphine 2 MG INJ IV PRN ×4 (06:27→22:15)
[2017-01-19 08:08] VITALS: BP 109/69; RESP 17
[2017-01-19] MEDS: LISINOPRIL 10 MG TAB PO SCH (08:51)
[2017-01-19] MEDS: MELOXICAM 15 MG TAB PO SCH (08:51)
[2017-01-19] MEDS: FAMOTIDINE 20 MG TAB PO SCH ×2 (08:52→20:32)
[2017-01-19] MEDS: FLUOXETINE 20 MG CAP PO SCH (08:52)
[2017-01-19] MEDS: PREGABALIN 75 MG CAP PO SCH ×2 (08:52→20:32)
[2017-01-19] MEDS: ENOXAPARIN 40 MG/0.4 ML SYG SC SCH (08:53)
[2017-01-19] MEDS: INSULIN ASPART [NOVOLOG] 3 ML PEN SC SCH ×7 (08:55→20:34)
[2017-01-19] MEDS: INSULIN GLARGINE [LANtus] 3 ML PEN SC SCH (08:57)
[2017-01-19] MEDS: POLYETHYLENE GLYCOL 17 GM PACKET PO SCH ×2 (08:57→20:32)
--- NOTE | 2017-01-19 13:47 | PN ---
Date/Time of Note Date/Time of Note DATE: 01/19/17 TIME: 13:45 Assessment/Plan VTE Prophylaxis VTE Prophylaxis Intervention: LMWH Lines/Catheters IV [facility]ter Type (from [facility]): Saline Lock Urinary Cath still in place: No Assessment/Plan Assessment/Plan 1. Likely acute gastroenteritis, but still with abdominal pain, GI consult 2. Type 2 diabetes mellitus. Continue sliding scale insulin along with basal insulin and pre-meal insulin. 3. Essential hypertension. The patient will be continued on antihypertensives. 4. Depression. The patient will be continued on SSRIs. 5. Chronic back pain. The patient will be continued on pain medications. 6. DVT prophylaxis. Subcutaneous Lovenox. Subjective 24 Hr Interval Summary Free Text/Dictation still with abdominal pain, less nausea. no vomiting or diarrhea Exam/Review of Systems Vital Signs Vitals Vital Signs Date Time Temp Pulse Resp B/P Pulse Ox O2 Delivery O2 Flow Rate FiO2 01/19/17 08:08 98.3 59 17 109/69 97 01/18/17 02:00 Room Air Intake and Output 01/18/17 01/18/17 01/19/17 15:00 23:00 07:00 Intake Total 820 ml 640 ml Balance 820 ml 640 ml Exam Constitutional: alert, oriented, well developed Head: atraumatic, normocephalic Eyes: EOMI, nl conjunctiva, nl lids ENMT: nl external ears & nose, nl lips & teeth, nl nasal mucosa & septum Neck: non-tender, supple Respiratory: clear to auscultation, normal air movement, No congested cough, No crackles/rales, No diminished breath sounds, No intercostal retraction, No labored breathing, No other, No respirations, No tactile fremitus, No wheezing Cardiovascular: nl pulses, regular rate and rhythm, No S3, No S4, No bruits, No diastolic murmur, No edema, No gallop, No irregular rhythm, No jugular venous distention (JVD), No murmurs/extra sounds, No other, No rub, No systolic murmur Gastrointestinal: nl liver, spleen, soft, tender (diffuse mild tenderness) Musculoskeletal: nl extremities to inspection Extremities: normal pulses, No calf tenderness, No clubbing, No cyanosis, No edema, No other, No palpable cord, No pitting pedal edema, No tenderness Neurological: MEDICAL INFORMATION SPECIALIST II-XII intact, nl mental status, nl speech, nl strength Skin: nl turgor Results Result Diagram: 01/16/17 0553 01/18/17 0546 Results 24 hrs Laboratory Tests Test 01/18/17 17:20 01/18/17 20:16 01/19/17 07:42 01/19/17 12:10 Bedside Glucose 133 171 208 274 H Medications Medications Current Medications Metoclopramide HCl (Reglan) 10 mg Q6H PRN IV NAUSEA AND/OR VOMITING; Start 01/11 at 16:30 Acetaminophen/ Hydrocodone Bitart ([place] (5/325)) 1 tab Q6H PRN PO MODERATE PAIN LEVEL 4-6 Last administered on 01/12/17 11:38; Admin Dose 1 TAB; Start 01/11 at 16:30 Morphine Sulfate (morphine) 2 mg Q4H PRN IV SEVERE PAIN LEVEL 7-10 Last administered on 01/19/17 12:18; Admin Dose 2 MG; Start 01/11/17 at 16:30 Famotidine (Pepcid) 20 mg Q12 PO Last administered on 01/19/17 08:52; Admin Dose 20 MG; Start 01/11/17 at 21:00 Enoxaparin Sodium (Lovenox) 40 mg DAILY SC Last administered on 01/19/17 08:53 ; Admin Dose 40 MG; Start 01/12/17 at 09:00 Fluoxetine HCl (Prozac) 20 mg DAILY PO Last administered on 01/19/17 08:52; Admin Dose 20 MG; Start 01/12/17 at 09:00 Pregabalin (Lyrica) 75 mg BID PO Last administered on 01/19/17 08:52; Admin Dose 75 MG; Start 01/11/17 at 21:00 Meloxicam (Mobic) 15 mg DAILY PO Last administered on 01/19/17 08:51; Admin Dose 15 MG; Start 01/12/17 at 09:00 Insulin Glargine (Lantus) 12 unit DAILY@08 SC Last administered on 01/19/17 08 :57; Admin Dose 12 UNIT; Start 01/11/17 at 21:00 Diagnostic Test (Pha) (Accu-Chek) 1 ea 02 XX Last administered on 01/18/17 02: 29; Admin Dose 1 EA; Start 01/12/17 at 02:00 Miscellaneous Information 1 ea NOTE XX ; Start 01/11/17 at 16:30 Glucose (Glutose) 15 gm Q15M PRN PO DECREASED GLUCOSE; Start 01/11/17 at 16:30 Glucose (Glutose) 22.5 gm Q15M PRN PO DECREASED GLUCOSE; Start 01/11/17 at 16:30 Dextrose (D50w Syringe) 25 ml Q15M PRN IV DECREASED GLUCOSE; Start 01/11/17 at 16:30 Dextrose (D50w Syringe) 50 ml Q15M PRN IV DECREASED GLUCOSE; Start 01/11/17 at 16:30 Glucagon (Glucagen) 1 mg Q15M PRN IM DECREASED GLUCOSE; Start 01/11/17 at 16:30 Glucose (Glutose) 15 gm Q15M PRN BUCCAL DECREASED GLUCOSE; Start 01/11/17 at 16: 30 Polyethylene Glycol (Miralax) 17 gm BID PO Last administered on 01/19/17 08:57 ; Admin Dose 17 GM; Start 01/14/17 at 21:00 Lisinopril (Zestril) 10 mg DAILY PO Last administered on 01/19/17 08:51; Admin Dose 10 MG; Start 01/18/17 at 09:00 DARRIUS FIGUEROA MD Jan 19, 2017 13:47
[2017-01-19 15:08] VITALS: BP 120/68; RESP 16
--- NOTE | 2017-01-19 15:39 | PN ---
Date/Time of Note Date/Time of Note DATE: 01/19/17 TIME: 15:34 Assessment/Plan VTE Prophylaxis VTE Prophylaxis Intervention: SCD's Lines/Catheters IV C[facility]ter Type (from [facility]): Saline Lock Urinary Cath still in place: No Assessment/Plan Assessment/Plan Assessment * Diffuse abdominal pain * CT scan abdomen Again noted is an enhancing lesion involving the left lobe of the liver consistent with a hemangioma. Mild hepatomegaly and fatty infiltration with no new hepatic lesions. . No evidence of calcified urinary calculi or obstructive uropathy. No gastrointestinal disease. Unremarkable appendix. Negative for intra-abdominal free air fluid abscesses or lymphadenopathy. . 2 cm low density in the left mid uterus may represent a leiomyoma. A pelvic ultrasound may be helpful for further evaluation. * Plan * pain control * will schedule patient colonoscopy on tuesday risks and benefit explained to patient and agreed with the procedure * case discussed with DR Barry * Further orders will depend on clinical course Subjective 24 Hr Interval Summary Free Text/Dictation * Course reviewed with RN * Patient seen and examined * Still complaining of abdominal pain * denies any colonoscopy Exam/Review of Systems Vital Signs Vitals Vital Signs Date Time Temp Pulse Resp B/P Pulse Ox O2 Delivery O2 Flow Rate FiO2 01/19/17 15:08 98.1 55 16 120/68 97 01/18/17 02:00 Room Air Intake and Output 01/18/17 01/18/17 01/19/17 15:00 23:00 07:00 Intake Total 820 ml 640 ml Balance 820 ml 640 ml Exam Constitutional: alert Head: atraumatic, normocephalic Eyes: nl conjunctiva Neck: non-tender, supple Respiratory: clear to auscultation, normal air movement Cardiovascular: nl pulses, regular rate and rhythm Gastrointestinal: nl liver, spleen, soft Musculoskeletal: nl extremities to inspection, nl gait and stance Extremities: normal pulses Neurological: nl speech Skin: nl turgor Results Result Diagram: 01/16/17 0553 01/18/17 0546 Results 24 hrs Laboratory Tests Test 01/18/17 17:20 01/18/17 20:16 01/19/17 07:42 01/19/17 12:10 Bedside Glucose 133 171 208 274 H Medications Medications Current Medications Metoclopramide HCl (Reglan) 10 mg Q6H PRN IV NAUSEA AND/OR VOMITING; Start 01/11 at 16:30 Acetaminophen/ Hydrocodone Bitart ([place] (5/325)) 1 tab Q6H PRN PO MODERATE PAIN LEVEL 4-6 Last administered on 01/12/17 11:38; Admin Dose 1 TAB; Start 01/11 at 16:30 Morphine Sulfate (morphine) 2 mg Q4H PRN IV SEVERE PAIN LEVEL 7-10 Last administered on 01/19/17 12:18; Admin Dose 2 MG; Start 01/11/17 at 16:30 Famotidine (Pepcid) 20 mg Q12 PO Last administered on 01/19/17 08:52; Admin Dose 20 MG; Start 01/11/17 at 21:00 Enoxaparin Sodium (Lovenox) 40 mg DAILY SC Last administered on 01/19/17 08:53 ; Admin Dose 40 MG; Start 01/12/17 at 09:00 Fluoxetine HCl (Prozac) 20 mg DAILY PO Last administered on 01/19/17 08:52; Admin Dose 20 MG; Start 01/12/17 at 09:00 Pregabalin (Lyrica) 75 mg BID PO Last administered on 01/19/17 08:52; Admin Dose 75 MG; Start 01/11/17 at 21:00 Meloxicam (Mobic) 15 mg DAILY PO Last administered on 01/19/17 08:51; Admin Dose 15 MG; Start 01/12/17 at 09:00 Insulin Glargine (Lantus) 12 unit DAILY@08 SC Last administered on 01/19/17 08 :57; Admin Dose 12 UNIT; Start 01/11/17 at 21:00 Diagnostic Test (Pha) (Accu-Chek) 1 ea 02 XX Last administered on 01/18/17 02: 29; Admin Dose 1 EA; Start 01/12/17 at 02:00 Miscellaneous Information 1 ea NOTE XX ; Start 01/11/17 at 16:30 Glucose (Glutose) 15 gm Q15M PRN PO DECREASED GLUCOSE; Start 01/11/17 at 16:30 Glucose (Glutose) 22.5 gm Q15M PRN PO DECREASED GLUCOSE; Start 01/11/17 at 16:30 Dextrose (D50w Syringe) 25 ml Q15M PRN IV DECREASED GLUCOSE; Start 01/11/17 at 16:30 Dextrose (D50w Syringe) 50 ml Q15M PRN IV DECREASED GLUCOSE; Start 01/11/17 at 16:30 Glucagon (Glucagen) 1 mg Q15M PRN IM DECREASED GLUCOSE; Start 01/11/17 at 16:30 Glucose (Glutose) 15 gm Q15M PRN BUCCAL DECREASED GLUCOSE; Start 01/11/17 at 16: 30 Polyethylene Glycol (Miralax) 17 gm BID PO Last administered on 01/19/17 08:57 ; Admin Dose 17 GM; Start 01/14/17 at 21:00 Lisinopril (Zestril) 10 mg DAILY PO Last administered on 01/19/17 08:51; Admin Dose 10 MG; Start 01/18/17 at 09:00 DMITRY ELAM NP Jan 19, 2017 15:38
[2017-01-19 20:15] VITALS: BP 133/72; RESP 18
[2017-01-20] MEDS: ACCU-CHEK XX SCH (01:15)
[2017-01-20 02:19] VITALS: BP 106/61; RESP 17
[2017-01-20] MEDS: morphine 2 MG INJ IV PRN ×4 (02:30→20:29)
[2017-01-20] MEDS: INSULIN GLARGINE [LANtus] 3 ML PEN SC SCH (08:18)
[2017-01-20] MEDS: INSULIN ASPART [NOVOLOG] 3 ML PEN SC SCH ×7 (08:18→22:06)
[2017-01-20 08:19] VITALS: BP 108/68; RESP 18
[2017-01-20] MEDS: ENOXAPARIN 40 MG/0.4 ML SYG SC SCH (08:20)
[2017-01-20] MEDS: FAMOTIDINE 20 MG TAB PO SCH ×2 (08:24→20:30)
[2017-01-20] MEDS: PREGABALIN 75 MG CAP PO SCH ×2 (08:24→20:30)
[2017-01-20] MEDS: POLYETHYLENE GLYCOL 17 GM PACKET PO SCH ×2 (08:24→21:00)
[2017-01-20] MEDS: MELOXICAM 15 MG TAB PO SCH (08:24)
[2017-01-20] MEDS: FLUOXETINE 20 MG CAP PO SCH (08:25)
[2017-01-20] MEDS: LISINOPRIL 10 MG TAB PO SCH (08:26)
--- NOTE | 2017-01-20 13:07 | PN ---
Date/Time of Note Date/Time of Note DATE: 01/20/17 TIME: 13:05 Assessment/Plan VTE Prophylaxis VTE Prophylaxis Intervention: LMWH Lines/Catheters IV Catheter Type (from [facility]): Saline Lock Urinary Cath still in place: No Assessment/Plan Assessment/Plan 1. Likely acute gastroenteritis, but still with abdominal pain, endoscopy tomorrow 2. Type 2 diabetes mellitus. Continue sliding scale insulin along with basal insulin and pre-meal insulin. 3. Essential hypertension. The patient will be continued on antihypertensives. 4. Depression. The patient will be continued on SSRIs. 5. Chronic back pain. The patient will be continued on pain medications. 6. DVT prophylaxis. Subcutaneous Lovenox. Subjective 24 Hr Interval Summary Free Text/Dictation still abdominal pain but no nausea today Exam/Review of Systems Vital Signs Vitals Vital Signs Date Time Temp Pulse Resp B/P Pulse Ox O2 Delivery O2 Flow Rate FiO2 01/20/17 08:19 97.4 56 18 108/68 99 01/18/17 02:00 Room Air Intake and Output 01/19/17 01/19/17 01/20/17 15:00 23:00 07:00 Intake Total 700 ml 520 ml Balance 700 ml 520 ml Exam Constitutional: alert, oriented, well developed Head: atraumatic, normocephalic Eyes: EOMI, PERRL, nl conjunctiva, nl lids, nl sclera ENMT: nl external ears & nose, nl lips & teeth, nl nasal mucosa & septum Neck: non-tender, supple Respiratory: clear to auscultation, normal air movement, No congested cough, No crackles/rales, No diminished breath sounds, No intercostal retraction, No labored breathing, No other, No respirations, No tactile fremitus, No wheezing Cardiovascular: nl pulses, regular rate and rhythm, No S3, No S4, No bruits, No diastolic murmur, No edema, No gallop, No irregular rhythm, No jugular venous distention (JVD), No murmurs/extra sounds, No other, No rub, No systolic murmur Gastrointestinal: nl liver, spleen, soft, tender (mild tenderness) Musculoskeletal: nl extremities to inspection Extremities: normal pulses, No calf tenderness, No clubbing, No cyanosis, No edema, No other, No palpable cord, No pitting pedal edema, No tenderness Neurological: SECTION CHIEF II-XII intact, nl mental status, nl speech, nl strength Skin: nl turgor Lymph: nl lymph nodes Results Result Diagram: 01/16/17 0553 01/18/17 0546 Results 24 hrs Laboratory Tests Test 01/19/17 17:45 01/19/17 20:30 01/20/17 01:42 01/20/17 08:15 Bedside Glucose 154 243 H 148 161 Test 01/20/17 11:47 Bedside Glucose 313 H Medications Medications Current Medications Metoclopramide HCl (Reglan) 10 mg Q6H PRN IV NAUSEA AND/OR VOMITING; Start 01/11 at 16:30 Acetaminophen/ Hydrocodone Bitart ([place] (5/325)) 1 tab Q6H PRN PO MODERATE PAIN LEVEL 4-6 Last administered on 01/12/17 11:38; Admin Dose 1 TAB; Start 01/11 at 16:30 Morphine Sulfate (morphine) 2 mg Q4H PRN IV SEVERE PAIN LEVEL 7-10 Last administered on 01/20/17 11:46; Admin Dose 2 MG; Start 01/11/17 at 16:30 Famotidine (Pepcid) 20 mg Q12 PO Last administered on 01/20/17 08:24; Admin Dose 20 MG; Start 01/11/17 at 21:00 Enoxaparin Sodium (Lovenox) 40 mg DAILY SC Last administered on 01/20/17 08:20 ; Admin Dose 40 MG; Start 01/12/17 at 09:00 Fluoxetine HCl (Prozac) 20 mg DAILY PO Last administered on 01/20/17 08:25; Admin Dose 20 MG; Start 01/12/17 at 09:00 Pregabalin (Lyrica) 75 mg BID PO Last administered on 01/20/17 08:24; Admin Dose 75 MG; Start 01/11/17 at 21:00 Meloxicam (Mobic) 15 mg DAILY PO Last administered on 01/20/17 08:24; Admin Dose 15 MG; Start 01/12/17 at 09:00 Diagnostic Test (Pha) (Accu-Chek) 1 ea 02 XX Last administered on 01/18/17 02: 29; Admin Dose 1 EA; Start 01/12/17 at 02:00 Miscellaneous Information 1 ea NOTE XX ; Start 01/11/17 at 16:30 Glucose (Glutose) 15 gm Q15M PRN PO DECREASED GLUCOSE; Start 01/11/17 at 16:30 Glucose (Glutose) 22.5 gm Q15M PRN PO DECREASED GLUCOSE; Start 01/11/17 at 16:30 Dextrose (D50w Syringe) 25 ml Q15M PRN IV DECREASED GLUCOSE; Start 01/11/17 at 16:30 Dextrose (D50w Syringe) 50 ml Q15M PRN IV DECREASED GLUCOSE; Start 01/11/17 at 16:30 Glucagon (Glucagen) 1 mg Q15M PRN IM DECREASED GLUCOSE; Start 01/11/17 at 16:30 Glucose (Glutose) 15 gm Q15M PRN BUCCAL DECREASED GLUCOSE; Start 01/11/17 at 16: 30 Polyethylene Glycol (Miralax) 17 gm BID PO Last administered on 01/20/17 08:24 ; Admin Dose 17 GM; Start 01/14/17 at 21:00 Lisinopril (Zestril) 10 mg DAILY PO Last administered on 01/20/17 08:26; Admin Dose 10 MG; Start 01/18/17 at 09:00 Insulin Glargine (Lantus) 14 unit DAILY@08 SC ; Start 01/21/17 at 08:00 DARRIUS FIGUEROA MD Jan 20, 2017 13:07
[2017-01-20] MEDS ORDERED: BISACODYL (EC) 5 MG TAB PO ONE (13:30)
[2017-01-20 14:44] VITALS: BP 109/62; RESP 16
[2017-01-20] MEDS ORDERED: MAGNESIUM CITRATE 300 ML BTL PO ONE (17:30)
[2017-01-20] MEDS ORDERED: POLYETHYLENE GLYCOL 3350 119 GM POWDER PO ONE (18:30)
[2017-01-20 20:00] VITALS: BP 112/69; RESP 19
[2017-01-21] VITALS (16 sets, daily range): BP systolic 81–108; BP diastolic 42–60; PULSE 52–58; RESP 12–21
[2017-01-21] MEDS: morphine 2 MG INJ IV PRN ×4 (01:20→20:22)
[2017-01-21] MEDS: ACCU-CHEK XX SCH (01:31)
[2017-01-21] MEDS ORDERED: POLYETHYLENE GLYCOL 3350 119 GM POWDER PO ONE (06:00)
[2017-01-21 06:58] LABS: BASOPHIL # 0.1 10^3/ul (0.0-0.1); BASOPHILS % 0.5 % (0.0-2.0); EOSINOPHILS # 0.2 10^3/ul (0.0-0.5); HEMATOCRIT 35.9 % (37.0-47.0); HEMOGLOBIN 11.9 g/dl (12.0-16.0); LYMPHOCYTES # 3.4 10^3/ul (0.8-2.9); LYMPHOCYTES % 37.3 % (15.0-51.0); MEAN CORPUSCULAR HEMOGLOBIN 30.4 pg (29.0-33.0); MEAN CORPUSCULAR HGB CONC 33.1 g/dl (32.0-37.0); MEAN CORPUSCULAR VOLUME 91.6 fl (82.0-101.0); MEAN PLATELET VOLUME 10.7 fl (7.4-10.4); MONOCYTE # 0.5 10^3/ul (0.3-0.9); MONOCYTES % 5.2 % (0.0-11.0); NEUTROPHILS % 54.8 % (39.0-77.0); PLATELET COUNT 250 10^3/UL (140-415); RED BLOOD COUNT 3.92 10^6/ul (4.20-5.40); RED CELL DISTRIBUTION WIDTH 13.3 % (11.5-14.5); WHITE BLOOD COUNT 9.1 10^3/ul (4.8-10.8)
[2017-01-21 07:29] LABS: CALCIUM 9.2 mg/dl (8.4-10.2); CREATININE 0.58 mg/dl (0.44-1.00)
[2017-01-21] MEDS: INSULIN ASPART [NOVOLOG] 3 ML PEN SC SCH ×7 (07:35→20:34)
[2017-01-21] MEDS ORDERED: BISACODYL (EC) 5 MG TAB PO ONE (08:00)
[2017-01-21] MEDS: FAMOTIDINE 20 MG TAB PO SCH ×2 (08:09→20:26)
[2017-01-21] MEDS: MELOXICAM 15 MG TAB PO SCH (08:09)
[2017-01-21] MEDS: FLUOXETINE 20 MG CAP PO SCH (08:10)
[2017-01-21] MEDS: PREGABALIN 75 MG CAP PO SCH ×2 (08:10→20:26)
[2017-01-21] MEDS: POLYETHYLENE GLYCOL 17 GM PACKET PO SCH ×2 (08:10→20:34)
[2017-01-21] MEDS: LISINOPRIL 10 MG TAB PO SCH (08:10)
[2017-01-21] MEDS: INSULIN GLARGINE [LANtus] 3 ML PEN SC SCH (08:16)
[2017-01-21] MEDS: ENOXAPARIN 40 MG/0.4 ML SYG SC SCH (09:00)
--- NOTE | 2017-01-21 16:31 | PN ---
Date/Time of Note Date/Time of Note DATE: 01/21/17 TIME: 16:30 Assessment/Plan VTE Prophylaxis VTE Prophylaxis Intervention: LMWH Lines/Catheters IV Catheter Type (from [facility]): Saline Lock Urinary Cath still in place: No Assessment/Plan Assessment/Plan 1. Likely acute gastroenteritis, but still with abdominal pain, endoscopy today 2. Type 2 diabetes mellitus. Continue sliding scale insulin along with basal insulin and pre-meal insulin. 3. Essential hypertension. The patient will be continued on antihypertensives. 4. Depression. The patient will be continued on SSRIs. 5. Chronic back pain. The patient will be continued on pain medications. 6. DVT prophylaxis. Subcutaneous Lovenox. Subjective 24 Hr Interval Summary Free Text/Dictation still has abdominal pain Exam/Review of Systems Vital Signs Vitals Vital Signs Date Time Temp Pulse Resp B/P Pulse Ox O2 Delivery O2 Flow Rate FiO2 01/21/17 14:27 98.0 53 18 101/57 98 01/18/17 02:00 Room Air Intake and Output 01/20/17 01/20/17 01/21/17 15:00 23:00 07:00 Intake Total 1960 ml 1600 ml Balance 1960 ml 1600 ml Exam Constitutional: alert, oriented, well developed Head: atraumatic, normocephalic Eyes: EOMI, nl conjunctiva, nl lids ENMT: nl external ears & nose, nl lips & teeth, nl nasal mucosa & septum Neck: non-tender, supple Respiratory: clear to auscultation, normal air movement, No congested cough, No crackles/rales, No diminished breath sounds, No intercostal retraction, No labored breathing, No other, No respirations, No tactile fremitus, No wheezing Cardiovascular: nl pulses, regular rate and rhythm, No S3, No S4, No bruits, No diastolic murmur, No edema, No gallop, No irregular rhythm, No jugular venous distention (JVD), No murmurs/extra sounds, No other, No rub, No systolic murmur Gastrointestinal: nl liver, spleen, soft, No ascites, No bowel sounds, No distended, No firm, No hepatomegaly, No mass , No other, No rebound or guarding, No splenomegaly, No surgical scars Musculoskeletal: nl extremities to inspection Extremities: normal pulses, No calf tenderness, No clubbing, No cyanosis, No edema, No other, No palpable cord, No pitting pedal edema, No tenderness Neurological: CERTIFIED EMERGENCY VEHICLE TECHNICIAN II-XII intact, nl mental status, nl speech, nl strength Skin: nl turgor Results Result Diagram: 01/21/17 0544 01/21/17 0544 Results 24 hrs Laboratory Tests Test 01/20/17 17:30 01/20/17 22:05 01/21/17 05:44 01/21/17 05:45 Bedside Glucose 134 120 White Blood Count 9.1 Red Blood Count 3.92 L Hemoglobin 11.9 L Hematocrit 35.9 L Mean Corpuscular Volume 91.6 Mean Corpuscular Hemoglobin 30.4 Mean Corpuscular Hemoglobin Concent 33.1 Red Cell Distribution Width 13.3 Platelet Count 250 Mean Platelet Volume 10.7 H Neutrophils % 54.8 Lymphocytes % 37.3 Monocytes % 5.2 Eosinophils % 2.0 Basophils % 0.5 Nucleated Red Blood Cells % 0.0 Neutrophils # 5.0 Lymphocytes # 3.4 H Monocytes # 0.5 Eosinophils # 0.2 Basophils # 0.1 Nucleated Red Blood Cells # 0.0 Sodium Level 139 Potassium Level 4.0 Chloride Level 104 Carbon Dioxide Level 29 Anion Gap 10 Blood Urea Nitrogen 13 Creatinine 0.58 Glucose Level 132 Calcium Level 9.2 Serum HCG, Qualitative NEGATIVE Test 01/21/17 08:11 01/21/17 12:13 Bedside Glucose 160 118 Medications Medications Current Medications Metoclopramide HCl (Reglan) 10 mg Q6H PRN IV NAUSEA AND/OR VOMITING; Start 01/11 at 16:30 Acetaminophen/ Hydrocodone Bitart ([place] (5/325)) 1 tab Q6H PRN PO MODERATE PAIN LEVEL 4-6 Last administered on 01/12/17 11:38; Admin Dose 1 TAB; Start 01/11 at 16:30 Morphine Sulfate (morphine) 2 mg Q4H PRN IV SEVERE PAIN LEVEL 7-10 Last administered on 01/21/17 12:17; Admin Dose 2 MG; Start 01/11/17 at 16:30 Famotidine (Pepcid) 20 mg Q12 PO Last administered on 01/21/17 08:09; Admin Dose 20 MG; Start 01/11/17 at 21:00 Enoxaparin Sodium (Lovenox) 40 mg DAILY SC Last administered on 01/20/17 08:20 ; Admin Dose 40 MG; Start 01/12/17 at 09:00 Fluoxetine HCl (Prozac) 20 mg DAILY PO Last administered on 01/21/17 08:10; Admin Dose 20 MG; Start 01/12/17 at 09:00 Pregabalin (Lyrica) 75 mg BID PO Last administered on 01/21/17 08:10; Admin Dose 75 MG; Start 01/11/17 at 21:00 Meloxicam (Mobic) 15 mg DAILY PO Last administered on 01/21/17 08:09; Admin Dose 15 MG; Start 01/12/17 at 09:00 Diagnostic Test (Pha) (Accu-Chek) 1 ea 02 XX Last administered on 01/18/17 02: 29; Admin Dose 1 EA; Start 01/12/17 at 02:00 Miscellaneous Information 1 ea NOTE XX ; Start 01/11/17 at 16:30 Glucose (Glutose) 15 gm Q15M PRN PO DECREASED GLUCOSE; Start 01/11/17 at 16:30 Glucose (Glutose) 22.5 gm Q15M PRN PO DECREASED GLUCOSE; Start 01/11/17 at 16:30 Dextrose (D50w Syringe) 25 ml Q15M PRN IV DECREASED GLUCOSE; Start 01/11/17 at 16:30 Dextrose (D50w Syringe) 50 ml Q15M PRN IV DECREASED GLUCOSE; Start 01/11/17 at 16:30 Glucagon (Glucagen) 1 mg Q15M PRN IM DECREASED GLUCOSE; Start 01/11/17 at 16:30 Glucose (Glutose) 15 gm Q15M PRN BUCCAL DECREASED GLUCOSE; Start 01/11/17 at 16: 30 Polyethylene Glycol (Miralax) 17 gm BID PO Last administered on 01/21/17 08:10 ; Admin Dose 17 GM; Start 01/14/17 at 21:00 Lisinopril (Zestril) 10 mg DAILY PO Last administered on 01/21/17 08:10; Admin Dose 10 MG; Start 01/18/17 at 09:00 Insulin Glargine (Lantus) 14 unit DAILY@08 SC Last administered on 01/21/17 08 :16; Admin Dose 14 UNIT; Start 01/21/17 at 08:00 DARRIUS FIGUEROA MD Jan 21, 2017 16:31
--- NOTE | 2017-01-21 18:41 | HPN ---
Date/Time of Note Date/Time of Note DATE: 01/21/17 TIME: 18:41 Interval H&P Admission Note Pt. seen H&P reviewed: No system changes CHLOE BARNES MD Jan 21, 2017 18:41
--- NOTE | 2017-01-21 18:47 | OPPN ---
Date/Time of Note Date/Time of Note DATE: 01/21/17 TIME: 18:44 Proc Note GI Procedure Date 01/21/17 Pre-procedure Diagnosis * Abdominal pain Post-procedure Diagnosis Assessment: * Mild gastritis. Rule out H. pylori infection. Biopsies obtained Plan: * PPI therapy * Review pathology Procedure Performed: Endoscopy (With biopsies) Surgeon CHLOE BARNES MD Manager Clinical Pharmacy none Anesthesia Type: MAC Anesthesiologist: CAREY JUAREZ MD EBL none Transfusion required none Biopsy 1: Gastric body and antrum. Rule out H. pylori Grafts/Implants none Complication(s) none Pt Condition post procedure: stable Disposition: PACU Indications: other (Abdominal pain) Procedure Description After informed consent, with the patient/relatives understanding the procedure, its indications, potential risks and complications, including but not limited to : allergic reaction, bleeding, perforation or infection, and after all pertinent questions were answered to the patients satisfaction, the patient/ relatives signed witnessed informed consent. Following this, premedication was administered slowly IV push under careful cardiovascular and respiratory monitoring with pulse oximetry, automatic blood pressure, and fashion styling intern. Once the sedative effect was achieved the patient was place in the left lateral decubitus, the panendoscope was introduced and advanced under visual control. Careful examination of the upper gastrointestinal tract, both on insertion as well as withdrawal of the instrument disclosing the following findings: ESOPHAGUS: the mucosa of the entire esophagus was carefully examined and showed the following findings: the mucosa appears within normal limits. There is no evidence of esophagitis, varices, neoplasm, or stricture. No Hiatal Hernia identified. STOMACH: Upon entrance to the stomach air was insufflated, the gastric ag distended normally. The mucosa of the fundus, body and antrum of the stomach was carefully examined both head-on and on retroflexion, and showed the following findings: There is mild erythema and edema of the mucosa of the body and antrum of the stomach. Biopsies were obtained to rule out H. pylori infection. Otherwise the mucosa appears within normal limits with no abnormalities. There is no evidence of ulcers or neoplasm. PYLORUS: The pylorus was carefully examined and showed the following findings: the pylorus appears patent and within normal limits, with no evidence of gastric outlet obstruction. DUODENUM: The duodenal mucosa was carefully examined in the duodenal bulb as well as the second portion of the duodenum and showed the following findings: the mucosa appears unremarkable with no evidence of duodenitis, ulcer or neoplasm. Copies To: CC: CHLOE BARNES MD, MORDO MD Jan 21, 2017 18:47
[2017-01-21] MEDS ORDERED: PROPOFOL 40 ML ONE (18:57)
--- NOTE | 2017-01-21 19:00 | OPPN ---
Date/Time of Note Date/Time of Note DATE: 01/21/17 TIME: 18:56 Proc Note GI Procedure Date 01/21/17 Pre-procedure Diagnosis * Abdominal pain Post-procedure Diagnosis Assessment: * Normal colonic mucosa. * Rule out microscopic, lymphocytic or collagenous colitis. Biopsies obtained * Moderate-sized internal hemorrhoids Plan: * Advance diet as tolerated * Review pathology as soon as available Procedure Performed: Colonoscopy (With biopsies) Surgeon CHLOE BARNES MD Student Admissions Clerk none Anesthesia Type: MAC Anesthesiologist: CAREY JUAREZ MD EBL none Transfusion required none Biopsy 1: Right colon. Rule out microscopic colitis Biopsy 2: Left colon. Rule out microscopic colitis Grafts/Implants none Complication(s) none Pt Condition post procedure: stable Disposition: PACU Indications: other (Dominant pain) Procedure Description After informed consent, with the patient/relatives understanding the procedure, its indications and potential risks and complications, including but not limited to: Allergic reaction, bleeding, perforation, infection, and after all pertinent questions were answered to the patient's satisfaction, the patient/ relatives signed the witnessed informed consent. Following this, premedication was administered slowly IV push under careful cardiovascular and respiratory monitoring with pulse OXIMETRY, automatic blood pressure, and linux security administrator. Once the sedative effect was achieved, the patient was placed in the left lateral decubitus position, digital rectal examination was performed. The colonoscope was then introduced and advanced under visual control throughout all segments of the colon including: the rectum, sigmoid, descending colon, splenic flexure, transverse colon, hepatic flexure, ascending colon and finally reaching the cecum which was clearly identified by transillumination, finger indentation and the ileocecal valve. Careful examination of the mucosa of the lower gastrointestinal tract both on insertion as well as withdrawal of the instrument disclosed the following findings: PREPARATION QUALITY: [Adequate], RECTAL EXAM: The anorectal area was visualized examined and digital rectal examination performed with the following findings: No evidence of perirectal disease, no masses. COLONIC MUCOSA: The mucosa of all segments of the colon was carefully examined and showed the following findings: the examined mucosa appears within normal limits. There is no evidence of inflammatory changes, diverticular formation, polyps or other neoplasms, vascular malformation, or any other abnormality. Random biopsies were obtained of the right and left colon to rule out microscopic, lymphocytic or collagenous colitis. Moderate-sized internal hemorrhoids are present. The instrument was then withdrawn, the patient tolerated the procedure well and was transferred out of the Endoscopy Suite awake and in good condition to continue recovery under observation. Copies To: CC: CHLOE BARNES MD, MORDO MD Jan 21, 2017 19:00
[2017-01-22] MEDS: morphine 2 MG INJ IV PRN ×4 (01:36→19:41)
[2017-01-22] MEDS: ACCU-CHEK XX SCH (02:00)
[2017-01-22 02:02] VITALS: BP 96/53; RESP 16
[2017-01-22 06:25] LABS: BASOPHIL # 0.1 10^3/ul (0.0-0.1); BASOPHILS % 0.6 % (0.0-2.0); EOSINOPHILS # 0.2 10^3/ul (0.0-0.5); EOSINOPHILS % 1.7 % (0.0-7.0); HEMATOCRIT 35.5 % (37.0-47.0); HEMOGLOBIN 11.7 g/dl (12.0-16.0); LYMPHOCYTES # 3.8 10^3/ul (0.8-2.9); LYMPHOCYTES % 40.3 % (15.0-51.0); MEAN CORPUSCULAR HEMOGLOBIN 30.2 pg (29.0-33.0); MEAN CORPUSCULAR VOLUME 91.5 fl (82.0-101.0); MEAN PLATELET VOLUME 10.6 fl (7.4-10.4); MONOCYTE # 0.5 10^3/ul (0.3-0.9); MONOCYTES % 5.7 % (0.0-11.0); NEUTROPHIL # 4.9 10^3/ul (1.6-7.5); NEUTROPHILS % 51.5 % (39.0-77.0); PLATELET COUNT 239 10^3/UL (140-415); RED BLOOD COUNT 3.88 10^6/ul (4.20-5.40); RED CELL DISTRIBUTION WIDTH 13.2 % (11.5-14.5); WHITE BLOOD COUNT 9.4 10^3/ul (4.8-10.8)
[2017-01-22 06:35] LABS: CALCIUM 8.9 mg/dl (8.4-10.2); CREATININE 0.69 mg/dl (0.44-1.00); POTASSIUM 3.9 mmol/L (3.5-5.1)
[2017-01-22 08:00] VITALS: BP 116/65; RESP 20
[2017-01-22] MEDS: INSULIN ASPART [NOVOLOG] 3 ML PEN SC SCH ×7 (08:00→20:59)
[2017-01-22] MEDS: INSULIN GLARGINE [LANtus] 3 ML PEN SC SCH (08:42)
[2017-01-22] MEDS: POLYETHYLENE GLYCOL 17 GM PACKET PO SCH ×2 (08:43→21:11)
[2017-01-22] MEDS: ENOXAPARIN 40 MG/0.4 ML SYG SC SCH (08:43)
[2017-01-22] MEDS: PREGABALIN 75 MG CAP PO SCH ×2 (08:44→21:12)
[2017-01-22] MEDS: FLUOXETINE 20 MG CAP PO SCH (08:44)
[2017-01-22] MEDS: FAMOTIDINE 20 MG TAB PO SCH ×2 (08:45→21:12)
[2017-01-22] MEDS: LISINOPRIL 10 MG TAB PO SCH (08:45)
[2017-01-22] MEDS: MELOXICAM 15 MG TAB PO SCH (08:45)
[2017-01-22 14:00] VITALS: BP 117/62; RESP 20
--- NOTE | 2017-01-22 15:01 | PN ---
Date/Time of Note Date/Time of Note DATE: 01/22/17 TIME: 14:59 Assessment/Plan VTE Prophylaxis VTE Prophylaxis Intervention: SCD's Lines/Catheters IV Catheter Type (from Nrsg): Peripheral IV Urinary Cath still in place: No Assessment/Plan Chief Complaint/Hosp Course Assessment and plan 1. Abdominal pain secondary to suspect acute gastroenteritis. Patient status post EGD. We will follow-up with result. Continue with pain management as needed. 2. Type 2 diabetes. Continue insulin regimen. Will just need. 3. Essential hypertension. On antihypertensives. Will adjust as needed. 4. Depression. Continue on SSRI 5. History of chronic back pain. Continue with analgesics. Disposition and plan: Monitor for clinical improvement of abdominal pain. Follow-up with GI recommendations concerning abdominal pain and EGD results. Discharge when medically stable and cleared by consultants Discussed plan of care with Dr. Townsend Problems: Subjective 24 Hr Interval Summary Free Text/Dictation Still with reports of abdominal discomfort Exam/Review of Systems Vital Signs Vitals Vital Signs Date Time Temp Pulse Resp B/P Pulse Ox O2 Delivery O2 Flow Rate FiO2 01/22/17 08:00 97.7 56 20 116/65 99 01/21/17 19:49 Room Air Intake and Output 01/21/17 01/21/17 01/22/17 15:00 23:00 07:00 Intake Total 220 ml 640 ml Balance 220 ml 640 ml Exam Constitutional: alert, oriented Head: normocephalic Respiratory: clear to auscultation Cardiovascular: regular rate and rhythm Gastrointestinal: soft, tender (minimally) Musculoskeletal: nl extremities to inspection Neurological: SUPPLY CHAIN ASSISTANT II-XII intact, nl mental status, nl speech Results Result Diagram: 01/22/17 0539 01/22/17 0539 Results 24 hrs Laboratory Tests Test 01/21/17 17:09 01/21/17 20:31 01/22/17 05:39 01/22/17 08:29 Bedside Glucose 97 102 113 White Blood Count 9.4 Red Blood Count 3.88 L Hemoglobin 11.7 L Hematocrit 35.5 L Mean Corpuscular Volume 91.5 Mean Corpuscular Hemoglobin 30.2 Mean Corpuscular Hemoglobin Concent 33.0 Red Cell Distribution Width 13.2 Platelet Count 239 Mean Platelet Volume 10.6 H Neutrophils % 51.5 Lymphocytes % 40.3 Monocytes % 5.7 Eosinophils % 1.7 Basophils % 0.6 Nucleated Red Blood Cells % 0.0 Neutrophils # 4.9 Lymphocytes # 3.8 H Monocytes # 0.5 Eosinophils # 0.2 Basophils # 0.1 Nucleated Red Blood Cells # 0.0 Sodium Level 140 Potassium Level 3.9 Chloride Level 106 Carbon Dioxide Level 27 Anion Gap 11 Blood Urea Nitrogen 15 Creatinine 0.69 Glucose Level 92 # Calcium Level 8.9 Test 01/22/17 12:08 Bedside Glucose 142 Medications Medications Current Medications Metoclopramide HCl (Reglan) 10 mg Q6H PRN IV NAUSEA AND/OR VOMITING; Start 01/11 at 16:30 Acetaminophen/ Hydrocodone Bitart ([place] (5/325)) 1 tab Q6H PRN PO MODERATE PAIN LEVEL 4-6 Last administered on 01/12/17 11:38; Admin Dose 1 TAB; Start 01/11 at 16:30 Morphine Sulfate (morphine) 2 mg Q4H PRN IV SEVERE PAIN LEVEL 7-10 Last administered on 01/22/17 14:51; Admin Dose 2 MG; Start 01/11/17 at 16:30 Famotidine (Pepcid) 20 mg Q12 PO Last administered on 01/22/17 08:45; Admin Dose 20 MG; Start 01/11/17 at 21:00 Enoxaparin Sodium (Lovenox) 40 mg DAILY SC Last administered on 01/22/17 08:43 ; Admin Dose 40 MG; Start 01/12/17 at 09:00 Fluoxetine HCl (Prozac) 20 mg DAILY PO Last administered on 01/22/17 08:44; Admin Dose 20 MG; Start 01/12/17 at 09:00 Pregabalin (Lyrica) 75 mg BID PO Last administered on 01/22/17 08:44; Admin Dose 75 MG; Start 01/11/17 at 21:00 Meloxicam (Mobic) 15 mg DAILY PO Last administered on 01/22/17 08:45; Admin Dose 15 MG; Start 01/12/17 at 09:00 Diagnostic Test (Pha) (Accu-Chek) 1 ea 02 XX Last administered on 01/18/17 02: 29; Admin Dose 1 EA; Start 01/12/17 at 02:00 Miscellaneous Information 1 ea NOTE XX ; Start 9/5/17 at 16:30 Glucose (Glutose) 15 gm Q15M PRN PO DECREASED GLUCOSE; Start 01/11/17 at 16:30 Glucose (Glutose) 22.5 gm Q15M PRN PO DECREASED GLUCOSE; Start 01/11/17 at 16:30 Dextrose (D50w Syringe) 25 ml Q15M PRN IV DECREASED GLUCOSE; Start 01/11/17 at 16:30 Dextrose (D50w Syringe) 50 ml Q15M PRN IV DECREASED GLUCOSE; Start 01/11/17 at 16:30 Glucagon (Glucagen) 1 mg Q15M PRN IM DECREASED GLUCOSE; Start 01/11/17 at 16:30 Glucose (Glutose) 15 gm Q15M PRN BUCCAL DECREASED GLUCOSE; Start 01/11/17 at 16: 30 Polyethylene Glycol (Miralax) 17 gm BID PO Last administered on 01/22/17 08:43 ; Admin Dose 17 GM; Start 01/14/17 at 21:00 Lisinopril (Zestril) 10 mg DAILY PO Last administered on 01/22/17 08:45; Admin Dose 10 MG; Start 01/18/17 at 09:00 Insulin Glargine (Lantus) 14 unit DAILY@08 SC Last administered on 01/22/17 08 :42; Admin Dose 14 UNIT; Start 01/21/17 at 08:00 CHIKI LEVINE Jan 22, 2017 15:01
--- NOTE | 2017-01-22 16:16 | PN ---
Date/Time of Note Date/Time of Note DATE: 01/22/17 TIME: 16:13 Assessment/Plan VTE Prophylaxis VTE Prophylaxis Intervention: SCD's Lines/Catheters IV Catheter Type (from Nrs): Peripheral IV Urinary Cath still in place: No Assessment/Plan Assessment/Plan Assessment * Diffuse abdominal pain * EGD Mild gastritis Colonoscopy Normal * Plan * pain management * will sign out but will be following as needed * case discussed with DR Barry * Further orders will depend on clinical course Subjective 24 Hr Interval Summary Free Text/Dictation * course reviewed with RN * EGD and colonoscopy performed * No untoward events overnight Exam/Review of Systems Vital Signs Vitals Vital Signs Date Time Temp Pulse Resp B/P Pulse Ox O2 Delivery O2 Flow Rate FiO2 01/22/17 14:00 98.2 63 20 117/62 98 01/21/17 19:49 Room Air Intake and Output 01/21/17 01/21/17 01/22/17 15:00 23:00 07:00 Intake Total 220 ml 640 ml Balance 220 ml 640 ml Exam Constitutional: alert Neck: non-tender, supple Respiratory: clear to auscultation, normal air movement Cardiovascular: nl pulses, regular rate and rhythm Gastrointestinal: nl liver, spleen, soft Musculoskeletal: nl extremities to inspection, nl gait and stance Neurological: nl speech, nl strength Results Result Diagram: 01/22/17 0539 01/22/17 0539 Results 24 hrs Laboratory Tests Test 01/21/17 17:09 01/21/17 20:31 01/22/17 05:39 01/22/17 08:29 Bedside Glucose 97 102 113 White Blood Count 9.4 Red Blood Count 3.88 L Hemoglobin 11.7 L Hematocrit 35.5 L Mean Corpuscular Volume 91.5 Mean Corpuscular Hemoglobin 30.2 Mean Corpuscular Hemoglobin Concent 33.0 Red Cell Distribution Width 13.2 Platelet Count 239 Mean Platelet Volume 10.6 H Neutrophils % 51.5 Lymphocytes % 40.3 Monocytes % 5.7 Eosinophils % 1.7 Basophils % 0.6 Nucleated Red Blood Cells % 0.0 Neutrophils # 4.9 Lymphocytes # 3.8 H Monocytes # 0.5 Eosinophils # 0.2 Basophils # 0.1 Nucleated Red Blood Cells # 0.0 Sodium Level 140 Potassium Level 3.9 Chloride Level 106 Carbon Dioxide Level 27 Anion Gap 11 Blood Urea Nitrogen 15 Creatinine 0.69 Glucose Level 92 # Calcium Level 8.9 Test 01/22/17 12:08 Bedside Glucose 142 Medications Medications Current Medications Metoclopramide HCl (Reglan) 10 mg Q6H PRN IV NAUSEA AND/OR VOMITING; Start 01/11 at 16:30 Acetaminophen/ Hydrocodone Bitart ([place] (5/325)) 1 tab Q6H PRN PO MODERATE PAIN LEVEL 4-6 Last administered on 01/12/17 11:38; Admin Dose 1 TAB; Start 01/11 at 16:30 Morphine Sulfate (morphine) 2 mg Q4H PRN IV SEVERE PAIN LEVEL 7-10 Last administered on 01/22/17 14:51; Admin Dose 2 MG; Start 01/11/17 at 16:30 Famotidine (Pepcid) 20 mg Q12 PO Last administered on 01/22/17 08:45; Admin Dose 20 MG; Start 01/11/17 at 21:00 Enoxaparin Sodium (Lovenox) 40 mg DAILY SC Last administered on 01/22/17 08:43 ; Admin Dose 40 MG; Start 01/12/17 at 09:00 Fluoxetine HCl (Prozac) 20 mg DAILY PO Last administered on 01/22/17 08:44; Admin Dose 20 MG; Start 01/12/17 at 09:00 Pregabalin (Lyrica) 75 mg BID PO Last administered on 01/22/17 08:44; Admin Dose 75 MG; Start 01/11/17 at 21:00 Meloxicam (Mobic) 15 mg DAILY PO Last administered on 01/22/17 08:45; Admin Dose 15 MG; Start 01/12/17 at 09:00 Diagnostic Test (Pha) (Accu-Chek) 1 ea 02 XX Last administered on 01/18/17 02: 29; Admin Dose 1 EA; Start 01/12/17 at 02:00 Miscellaneous Information 1 ea NOTE XX ; Start 01/11/17 at 16:30 Glucose (Glutose) 15 gm Q15M PRN PO DECREASED GLUCOSE; Start 01/11/17 at 16:30 Glucose (Glutose) 22.5 gm Q15M PRN PO DECREASED GLUCOSE; Start 01/11/17 at 16:30 Dextrose (D50w Syringe) 25 ml Q15M PRN IV DECREASED GLUCOSE; Start 01/11/17 at 16:30 Dextrose (D50w Syringe) 50 ml Q15M PRN IV DECREASED GLUCOSE; Start 01/11/17 at 16:30 Glucagon (Glucagen) 1 mg Q15M PRN IM DECREASED GLUCOSE; Start 01/11/17 at 16:30 Glucose (Glutose) 15 gm Q15M PRN BUCCAL DECREASED GLUCOSE; Start 01/11/17 at 16: 30 Polyethylene Glycol (Miralax) 17 gm BID PO Last administered on 01/22/17 08:43 ; Admin Dose 17 GM; Start 01/14/17 at 21:00 Lisinopril (Zestril) 10 mg DAILY PO Last administered on 01/22/17 08:45; Admin Dose 10 MG; Start 01/18/17 at 09:00 Insulin Glargine (Lantus) 14 unit DAILY@08 SC Last administered on 01/22/17 08 :42; Admin Dose 14 UNIT; Start 01/21/17 at 08:00 DMITRY ELAM NP Jan 22, 2017 16:16
[2017-01-22 20:00] VITALS: BP 118/67; RESP 17
[2017-01-23] MEDS: morphine 2 MG INJ IV PRN ×5 (00:50→22:28)
[2017-01-23 02:00] VITALS: BP 112/67; RESP 20
[2017-01-23] MEDS: ACCU-CHEK XX SCH (02:00)
[2017-01-23] MEDS: HYDROCODONE/APAP (5/325) TAB PO PRN (05:46)
[2017-01-23 07:50] VITALS: BP 108/62; RESP 18
[2017-01-23] MEDS: INSULIN ASPART [NOVOLOG] 3 ML PEN SC SCH ×7 (08:17→21:00)
[2017-01-23] MEDS: ENOXAPARIN 40 MG/0.4 ML SYG SC SCH (08:19)
[2017-01-23] MEDS: INSULIN GLARGINE [LANtus] 3 ML PEN SC SCH (08:19)
[2017-01-23] MEDS: FLUOXETINE 20 MG CAP PO SCH (08:21)
[2017-01-23] MEDS: POLYETHYLENE GLYCOL 17 GM PACKET PO SCH ×2 (08:21→20:23)
[2017-01-23] MEDS: LISINOPRIL 10 MG TAB PO SCH (08:22)
[2017-01-23] MEDS: MELOXICAM 15 MG TAB PO SCH (08:22)
[2017-01-23] MEDS: FAMOTIDINE 20 MG TAB PO SCH ×2 (08:22→20:23)
[2017-01-23] MEDS: PREGABALIN 75 MG CAP PO SCH ×2 (08:22→20:23)
[2017-01-23] MEDS ORDERED: FAMO20TA18 PO (10:11)
[2017-01-23] MEDS ORDERED: LISI10TA2 PO (10:11)
--- NOTE | 2017-01-23 10:14 | PDOCDIS ---
Discharge Instructions DIAGNOSIS Discharge Diagnosis 1. Abdominal pain secondary to suspect acute gastroenteritis. 2. Type 2 diabetes. 3. Essential hypertension. 4. Depression. 5. History of chronic back pain. CONDITION Patient Condition: Stable HOME CARE INSTRUCTIONS: Special Diet: carb control diet FOLLOW UP/APPOINTMENTS Follow-up Plan 1. Follow up with your primary care provider in 1-2 weeks CHIKI LEVINE Jan 23, 2017 10:14
--- NOTE | 2017-01-23 12:59 | PN ---
Date/Time of Note Date/Time of Note DATE: 01/23/17 TIME: 12:55 Assessment/Plan VTE Prophylaxis VTE Prophylaxis Intervention: SCD's Lines/Catheters IV Catheter Type (from Nrsg): [place] Urinary Cath still in place: No Assessment/Plan Chief Complaint/Hosp Course Assessment and plan 1. Abdominal pain secondary to suspect acute gastroenteritis. Patient status post EGD. We will follow-up with result. Continue with pain management as needed. 2. Type 2 diabetes. Continue insulin regimen. Will just need. 3. Essential hypertension. On antihypertensives. Will adjust as needed. 4. Depression. Continue on SSRI 5. History of chronic back pain. Continue with analgesics. Disposition and plan:Follow up with EGD results. still with moderate amount of pain. Will get imaging of abdomen. Continue inpatient monitoring for now Discussed plan of care with Dr. Townsend Problems: Subjective 24 Hr Interval Summary Free Text/Dictation with worse abd pain Exam/Review of Systems Vital Signs Vitals Vital Signs Date Time Temp Pulse Resp B/P Pulse Ox O2 Delivery O2 Flow Rate FiO2 01/23/17 07:50 97.0 54 18 108/62 97 01/21/17 19:49 Room Air Intake and Output 01/22/17 01/22/17 01/23/17 15:00 23:00 07:00 Intake Total 900 ml 240 ml Balance 900 ml 240 ml Exam Constitutional: alert, oriented Head: normocephalic Respiratory: clear to auscultation Cardiovascular: regular rate and rhythm Gastrointestinal: soft, tender Musculoskeletal: nl extremities to inspection Neurological: STUDIO COORDINATOR II-XII intact, nl mental status, nl speech Results Result Diagram: 01/22/17 0539 01/22/17 0539 Results 24 hrs Laboratory Tests Test 01/22/17 17:22 01/22/17 20:21 01/23/17 08:06 01/23/17 11:44 Bedside Glucose 200 149 163 200 Medications Medications Current Medications Metoclopramide HCl (Reglan) 10 mg Q6H PRN IV NAUSEA AND/OR VOMITING; Start 01/11 at 16:30 Acetaminophen/ Hydrocodone Bitart ([place] (5/325)) 1 tab Q6H PRN PO MODERATE PAIN LEVEL 4-6 Last administered on 01/23/17t 05:46; Admin Dose 1 TAB; Start 01/11/17 at 16:30 Morphine Sulfate (morphine) 2 mg Q4H PRN IV SEVERE PAIN LEVEL 7-10 Last administered on 01/23/17 08:21; Admin Dose 2 MG; Start 01/11/17 at 16:30 Famotidine (Pepcid) 20 mg Q12 PO Last administered on 01/23/17 08:22; Admin Dose 20 MG; Start 01/11/17 at 21:00 Enoxaparin Sodium (Lovenox) 40 mg DAILY SC Last administered on 01/23/17 08:19 ; Admin Dose 40 MG; Start 01/12/17 at 09:00 Fluoxetine HCl (Prozac) 20 mg DAILY PO Last administered on 01/23/17 08:21; Admin Dose 20 MG; Start 01/12/17 at 09:00 Pregabalin (Lyrica) 75 mg BID PO Last administered on 01/23/17 08:22; Admin Dose 75 MG; Start 01/11/17 at 21:00 Meloxicam (Mobic) 15 mg DAILY PO Last administered on 01/23/17 08:22; Admin Dose 15 MG; Start 01/12/17 at 09:00 Diagnostic Test (Pha) (Accu-Chek) 1 ea 02 XX Last administered on 01/18/17 02: 29; Admin Dose 1 EA; Start 01/12/17 at 02:00 Miscellaneous Information 1 ea NOTE XX ; Start 01/11/17 at 16:30 Glucose (Glutose) 15 gm Q15M PRN PO DECREASED GLUCOSE; Start 01/11/17 at 16:30 Glucose (Glutose) 22.5 gm Q15M PRN PO DECREASED GLUCOSE; Start 01/11/17 at 16:30 Dextrose (D50w Syringe) 25 ml Q15M PRN IV DECREASED GLUCOSE; Start 01/11/17 at 16:30 Dextrose (D50w Syringe) 50 ml Q15M PRN IV DECREASED GLUCOSE; Start 01/11/17 at 16:30 Glucagon (Glucagen) 1 mg Q15M PRN IM DECREASED GLUCOSE; Start 01/11/17 at 16:30 Glucose (Glutose) 15 gm Q15M PRN BUCCAL DECREASED GLUCOSE; Start 01/11/17 at 16: 30 Polyethylene Glycol (Miralax) 17 gm BID PO Last administered on 01/23/17 08:21 ; Admin Dose 17 GM; Start 01/14/17 at 21:00 Lisinopril (Zestril) 10 mg DAILY PO Last administered on 01/23/17 08:22; Admin Dose 10 MG; Start 01/18/17 at 09:00 Insulin Glargine (Lantus) 14 unit DAILY@08 SC Last administered on 01/23/17 08 :19; Admin Dose 14 UNIT; Start 01/21/17 at 08:00 CHIKI LEVINE Jan 23, 2017 12:59
[2017-01-23] MEDS ORDERED: BARIUM SULF 2% 450 ML BTL (BERRY SMOOTHIE) PO ONE (14:00)
[2017-01-23 14:31] VITALS: BP 135/77; RESP 18
[2017-01-23 20:00] VITALS: BP 151/85; RESP 20
[2017-01-24 02:00] VITALS: BP 106/62; RESP 20
[2017-01-24] MEDS: ACCU-CHEK XX SCH (02:00)
[2017-01-24 04:31] VITALS: PULSE 61
[2017-01-24] MEDS: morphine 2 MG INJ IV PRN ×4 (04:37→22:08)
[2017-01-24 06:03] LABS: BASOPHILS % 0.5 % (0.0-2.0); EOSINOPHILS # 0.2 10^3/ul (0.0-0.5); EOSINOPHILS % 1.9 % (0.0-7.0); HEMATOCRIT 34.9 % (37.0-47.0); LYMPHOCYTES # 3.6 10^3/ul (0.8-2.9); LYMPHOCYTES % 42.6 % (15.0-51.0); MEAN CORPUSCULAR HEMOGLOBIN 30.8 pg (29.0-33.0); MEAN CORPUSCULAR HGB CONC 34.4 g/dl (32.0-37.0); MEAN CORPUSCULAR VOLUME 89.7 fl (82.0-101.0); MEAN PLATELET VOLUME 10.6 fl (7.4-10.4); MONOCYTE # 0.5 10^3/ul (0.3-0.9); MONOCYTES % 5.8 % (0.0-11.0); NEUTROPHIL # 4.1 10^3/ul (1.6-7.5); NEUTROPHILS % 48.8 % (39.0-77.0); PLATELET COUNT 242 10^3/UL (140-415); RED BLOOD COUNT 3.89 10^6/ul (4.20-5.40); WHITE BLOOD COUNT 8.5 10^3/ul (4.8-10.8)
[2017-01-24 06:43] LABS: ALBUMIN 3.7 g/dl (3.3-4.9); ALBUMIN/GLOBULIN RATIO 1.12; BILIRUBIN,INDIRECT 0.3 mg/dl (0-1.1); BILIRUBIN,TOTAL 0.3 mg/dl (0.2-1.3); CALCIUM 9.4 mg/dl (8.4-10.2); CREATININE 0.57 mg/dl (0.44-1.00); POTASSIUM 4.1 mmol/L (3.5-5.1)
[2017-01-24] MEDS: ENOXAPARIN 40 MG/0.4 ML SYG SC SCH (08:07)
[2017-01-24] MEDS: INSULIN GLARGINE [LANtus] 3 ML PEN SC SCH (08:09)
[2017-01-24] MEDS: INSULIN ASPART [NOVOLOG] 3 ML PEN SC SCH ×7 (08:11→20:33)
[2017-01-24] MEDS: FAMOTIDINE 20 MG TAB PO SCH ×2 (08:12→20:31)
[2017-01-24] MEDS: MELOXICAM 15 MG TAB PO SCH (08:12)
[2017-01-24] MEDS: PREGABALIN 75 MG CAP PO SCH ×2 (08:12→20:31)
[2017-01-24] MEDS: FLUOXETINE 20 MG CAP PO SCH (08:12)
[2017-01-24] MEDS: POLYETHYLENE GLYCOL 17 GM PACKET PO SCH ×2 (08:12→20:31)
[2017-01-24 08:25] VITALS: BP 94/57; RESP 19
[2017-01-24] MEDS: LISINOPRIL 10 MG TAB PO SCH (09:00)
[2017-01-24] MEDS ORDERED: BARIUM SULF 2% 450 ML BTL (BERRY SMOOTHIE) PO ONE (09:00)
[2017-01-24] MEDS ORDERED: SOD CHLORIDE 0.9% 100 ML ONE ×2 (09:31→09:47)
[2017-01-24] MEDS ORDERED: IODIXANOL LOCM 100 ML BTL ONE ×2 (09:31→09:47)
--- NOTE | 2017-01-24 10:28 | RADRPT ---
PROCEDURE: CT Abdomen and Pelvis with contrast. CLINICAL INDICATION: Abdominal pain, nausea and vomiting. TECHNIQUE: Multiple contiguous axial CT images of the abdomen and pelvis were obtained following t he administration of 100 cc of Visipaque 320. Coronal and sagittal reconstructions were also perfor med. CTDIvol (mGy): 16.42; Total Exam DLP (mGy-cm): 1005.38. One or more of the following dose reduction techniques were utilized: - Automated exposure control. - Adjustment of the mA and/or kV according to patient size. - Use of iterative reconstruction technique. COMPARISON: Pelvic ultrasound 01/16/2017. CT abdomen/pelvis 01/15/2017. MRI abdomen 11/30/2016. FINDINGS: Limited imaging of the lower thorax demonstrate scattered mild atelectatic change. The liver and spleen are homogeneous in enhancement aside from a tiny enhancing focus within the lef t hepatic lobe, which is unchanged and favorable for a tiny flash filling hemangioma or intrahepatic shunt. The liver measures approximately 19.2 cm in a craniocaudal dimension. The gallbladder is arana rgically absent. The pancreas and adrenal glands are unremarkable. The kidneys are symmetric in size and enhancement. There is no hydronephrosis or abnormal perinephr ic inflammation. Excretion of contrast is seen within both collecting systems. The abdominal aorta is normal in caliber. There is no periaortic / retroperitoneal lymphadenopathy. The stomach and small intestines are unremarkable. A moderate volume of stool seen throughout the co suzanne. The appendix is normal. There are no focal inflammatory changes of the mesentery. There is n o mesenteric lymphadenopathy. There is no ascites. The bladder is normal in contour. An intrauterine device is in place within the endometrial cavity. Nabothian cysts are identified. There is no free pelvic fluid. There is no pelvic sidewall or ingui nal lymphadenopathy. Tiny bilateral fat containing inguinal hernias are present. Lumbosacral degenerative disc disease is observed.. Body wall soft tissues are unremarkable. IMPRESSION: No evidence of abdominopelvic mass, lymphadenopathy or acute inflammatory pathology. Hepatic enlargement with tiny flash filling hemangioma versus intrahepatic shunt within the left hep atic lobe, unchanged. RPTAT: HLST .Angie Leyva MD, MD Date Time Electronically viewed and signed by .Angie Leyva MD, on 01/24/2017 10:28 .T/
--- NOTE | 2017-01-24 10:54 | PN ---
Date/Time of Note Date/Time of Note DATE: 01/24/17 TIME: 10:46 Assessment/Plan VTE Prophylaxis VTE Prophylaxis Intervention: LMWH Lines/Catheters IV C[facility] Type [facility]from [facility] [place] Urinary Cath still in place: No Assessment/Plan Chief Complaint/Hosp Course 1. Abdominal pain. Etiology unclear. CT scan of the abdomen and pelvis from outside facility has been negative for any acute findings. The patient had positive urinalysis. Urine cultures negative from this hospital. Urine and blood cultures from the referring facility was negative. Repeat CT with oral and IV contrast showed no acute intra-abdominal findings other than an enhancing lesion involving the left lower lobe of the liver consistent with a hemangioma. The CT showed 2 cm low-density in the left mid uterus that may represent a leiomyoma. Pelvic ultrasound negative for any fibroids. Status post esophagogastroduodenoscopy that showed mild gastritis. Status post colonoscopy that was negative for any acute findings. A third CT scan of the abdomen and pelvis was done on 01/24/2017 and that is negative for any acute findings 2. Type 2 diabetes mellitus. Continue sliding scale insulin along with basal insulin and pre-meal insulin. 3. Essential hypertension. The patient will be continued on antihypertensives. Blood pressure slightly on the lower side. 4. Depression. The patient will be continued on SSRIs. 5. Chronic back pain. The patient will be continued on pain medications. 6. Fluids, electrolytes, and nutrition. Carbohydrate controlled diet. 7. DVT prophylaxis. Subcutaneous Lovenox. 8. Gastrointestinal prophylaxis. Histamine 2 receptor blockers. 9. Plan. There are no CT scan findings or endoscopic findings suggestive of the patient's continuing abdominal pain. This was discussed with the patient with the help of a certified offset proof press operator [ID number [id number]]. Hence we will start to titrate down the patient's IV analgesics to avoid any opioid dependency and then discharge the patient home. Case discussed with Dr. Rodriguez. Problems: Subjective 24 Hr Interval Summary Free Text/Dictation Patient tolerating a regular consistency diet. Asking for pain medications [id number]. Exam/Review of Systems Vital Signs Vitals Vital Signs Date Time Temp Pulse Resp B/P Pulse Ox O2 Delivery O2 Flow Rate FiO2 01/24/17 08:25 98.7 56 19 94/57 98 01/21/17 19:49 Room Air Intake and Output 01/23/17 01/23/17 01/24/17 15:00 23:00 07:00 Intake Total 690 ml 300 ml Balance 690 ml 300 ml Exam GENERAL APPEARANCE: A 51-year-old, female, lying in bed, in no apparent distress. HEENT: Normocephalic and atraumatic. Eyes anicteric sclerae. Conjunctivae clear. ENT: Nasal septal mucosa is dry. NECK: Supple. No JVD noted. RESPIRATORY: Bilaterally clear to auscultation. No adventitious breath sounds. No use of accessory muscle respiration. CARDIAC: Regular rate and rhythm. S1-S2 heard. ABDOMEN: Soft. Non-tender. GENITOURINARY: Deferred. EXTREMITIES: No cyanosis, no clubbing, no edema. Peripheral pulses palpable. NEUROLOGIC: The patient is awake, alert, and oriented. Cranial nerves are grossly intact. Results Result Diagram: 01/24/17 0435 01/24/17 0435 Results 24 hrs Laboratory Tests Test 01/23/17 11:44 01/23/17 17:19 01/23/17 20:21 01/24/17 04:35 Bedside Glucose 200 203 178 White Blood Count 8.5 Red Blood Count 3.89 L Hemoglobin 12.0 Hematocrit 34.9 L Mean Corpuscular Volume 89.7 Mean Corpuscular Hemoglobin 30.8 Mean Corpuscular Hemoglobin Concent 34.4 Red Cell Distribution Width 13.0 Platelet Count 242 Mean Platelet Volume 10.6 H Neutrophils % 48.8 Lymphocytes % 42.6 Monocytes % 5.8 Eosinophils % 1.9 Basophils % 0.5 Nucleated Red Blood Cells % 0.0 Neutrophils # 4.1 Lymphocytes # 3.6 H Monocytes # 0.5 Eosinophils # 0.2 Basophils # 0.0 Nucleated Red Blood Cells # 0.0 Sodium Level 138 Potassium Level 4.1 Chloride Level 104 Carbon Dioxide Level 27 Anion Gap 11 Blood Urea Nitrogen 16 Creatinine 0.57 Glucose Level 118 Calcium Level 9.4 Total Bilirubin 0.3 Direct Bilirubin 0.00 Indirect Bilirubin 0.3 Aspartate Amino Transf (AST/SGOT) 29 Alanine Aminotransferase (ALT/SGPT) 44 Alkaline Phosphatase 64 Total Protein 7.0 Albumin 3.7 Globulin 3.30 H Albumin/Globulin Ratio 1.12 Lipase 61 Test 01/24/17 07:55 Bedside Glucose 171 Medications Medications Current Medications Metoclopramide HCl (Reglan) 10 mg Q6H PRN IV NAUSEA AND/OR VOMITING; Start 9/5 /17 at 16:30 Acetaminophen/ Hydrocodone Bitart ([place] (5/325)) 1 tab Q6H PRN PO MODERATE PAIN LEVEL 4-6 Last administered on 01/23/17 05:46; Admin Dose 1 TAB; Start 01/11/17 at 16:30 Morphine Sulfate (morphine) 2 mg Q4H PRN IV SEVERE PAIN LEVEL 7-10 Last administered on 01/24/17 10:16; Admin Dose 2 MG; Start 01/11/17 at 16:30 Famotidine (Pepcid) 20 mg Q12 PO Last administered on 01/24/17 08:12; Admin Dose 20 MG; Start 01/11/17 at 21:00 Enoxaparin Sodium (Lovenox) 40 mg DAILY SC Last administered on 01/24/17 08:07 ; Admin Dose 40 MG; Start 01/12/17 at 09:00 Fluoxetine HCl (Prozac) 20 mg DAILY PO Last administered on 01/24/17 08:12; Admin Dose 20 MG; Start 01/12/17 at 09:00 Pregabalin (Lyrica) 75 mg BID PO Last administered on 01/24/17 08:12; Admin Dose 75 MG; Start 01/11/17 at 21:00 Meloxicam (Mobic) 15 mg DAILY PO Last administered on 01/24/17 08:12; Admin Dose 15 MG; Start 01/12/17 at 09:00 Diagnostic Test (Pha) (Accu-Chek) 1 ea 02 XX Last administered on 01/18/17 02: 29; Admin Dose 1 EA; Start 01/12/17 at 02:00 Miscellaneous Information 1 ea NOTE XX ; Start 01/11/17 at 16:30 Glucose (Glutose) 15 gm Q15M PRN PO DECREASED GLUCOSE; Start 01/11/17 at 16:30 Glucose (Glutose) 22.5 gm Q15M PRN PO DECREASED GLUCOSE; Start 01/11/17 at 16:30 Dextrose (D50w Syringe) 25 ml Q15M PRN IV DECREASED GLUCOSE; Start 01/11/17 at 16:30 Dextrose (D50w Syringe) 50 ml Q15M PRN IV DECREASED GLUCOSE; Start 01/11/17 at 16:30 Glucagon (Glucagen) 1 mg Q15M PRN IM DECREASED GLUCOSE; Start 01/11/17 at 16:30 Glucose (Glutose) 15 gm Q15M PRN BUCCAL DECREASED GLUCOSE; Start 01/11/17 at 16: 30 Polyethylene Glycol (Miralax) 17 gm BID PO Last administered on 01/24/17 08:12 ; Admin Dose 17 GM; Start 01/14/17 at 21:00 Lisinopril (Zestril) 10 mg DAILY PO Last administered on 01/23/17 08:22; Admin Dose 10 MG; Start 01/18/17 at 09:00 Insulin Glargine (Lantus) 14 unit DAILY@08 SC Last administered on 01/24/17 08 :09; Admin Dose 14 UNIT; Start 01/21/17 at 08:00 KIMBERLY VELAZQUEZ NP Jan 24, 2017 10:54
[2017-01-24 14:50] VITALS: BP 101/56; RESP 18
[2017-01-24 20:00] VITALS: BP 123/61; RESP 19
[2017-01-25 02:00] VITALS: BP 130/76; RESP 19
[2017-01-25] MEDS: morphine 2 MG INJ IV PRN ×3 (02:11→12:25)
[2017-01-25] MEDS: ACCU-CHEK XX SCH (02:15)
[2017-01-25 06:33] LABS: CALCIUM 9.2 mg/dl (8.4-10.2); CREATININE 0.51 mg/dl (0.44-1.00); POTASSIUM 4.2 mmol/L (3.5-5.1)
[2017-01-25 07:59] VITALS: BP 107/58; RESP 19
[2017-01-25] MEDS: FAMOTIDINE 20 MG TAB PO SCH (08:14)
[2017-01-25] MEDS: POLYETHYLENE GLYCOL 17 GM PACKET PO SCH (08:14)
[2017-01-25] MEDS: LISINOPRIL 10 MG TAB PO SCH (08:14)
[2017-01-25] MEDS: MELOXICAM 15 MG TAB PO SCH (08:14)
[2017-01-25] MEDS: PREGABALIN 75 MG CAP PO SCH (08:14)
[2017-01-25] MEDS: FLUOXETINE 20 MG CAP PO SCH (08:14)
[2017-01-25] MEDS: INSULIN ASPART [NOVOLOG] 3 ML PEN SC SCH ×5 (08:16→11:57)
[2017-01-25] MEDS: INSULIN GLARGINE [LANtus] 3 ML PEN SC SCH (08:16)
[2017-01-25] MEDS: ENOXAPARIN 40 MG/0.4 ML SYG SC SCH (08:17)
[2017-01-25] MEDS ORDERED: OXYC-282 PO (11:15)
[2017-01-25] MEDS ORDERED: PANT40TA3 PO (11:18)
[2017-01-25 14:53] VITALS: BP 109/60; RESP 16
--- NOTE | 2017-01-26 07:37 | DS ---
DATE OF ADMISSION: 01/11/2017 DATE OF DISCHARGE: 01/25/2017 FINAL DIAGNOSES: 1. Abdominal pain, unclear etiology, status post multiple evaluations, to be discharged home on oral analgesics. Esophagogastroduodenoscopy showed mild gastritis. 2. Mild gastritis. 3. Type 2 diabetes mellitus. 4. Essential hypertension. 5. Depression. 6. Chronic back pain. APPLICATION ANALYST: Mikel Barry MD, Gastroenterology. HOSPITAL COURSE: This is a 51-year-old female with past medical history of chronic back pain, depression, type 2 diabetes mellitus, essential hypertension and melanoma, who went to [facility] because of abdominal pain with associated nonbilious, nonbloody vomiting and diarrhea for a 3-day period. The patient verbalized the abdominal pain as unprovoked. The patient also verbalized subjective fevers. The patient located the abdominal pain at the lower abdomen in the periumbilical area. The patient denied any radiation of the pain. The patient denied any dysuria or hematuria. The patient denied any melena or hematochezia. The patient denied any hematemesis. In the emergency room at [facility], the patient underwent extensive evaluation. The patient's urinalysis at [facility] showed positive urine WBC of 10 to 25 with a large amount of urine leukocyte esterase. The patient had no leukocytosis. The patient was noticed to have hyperglycemia. The patient underwent a CT scan of the abdomen and pelvis at [facility] that was negative for any acute findings. She was treated with IV fluids, IV analgesics, antiemetics and a single dose of IV ceftriaxone. The patient was transferred to [facility] because of insurance reasons for further management. The patient was admitted to inpatient setting. Pancultures were ordered. The patient was started on empiric antibiotics. The patient's pancultures remained negative. The patient's stool studies remained negative. The patient's cultures from [facility] was confirmed to be negative. Hence, the patient's antibiotics were discontinued. The patient continued to have significant abdominal pain. Hence, a gastroenterology consult was obtained. The patient underwent a CT scan of the abdomen and pelvis on 01/15/2017 at [facility] that showed an enhancing lesion involving the left lobe of the liver consistent with a hemangioma with mild hepatomegaly and fatty infiltration and no evidence of any calcified urinary calculi or obstructive uropathy. However, the CT scan showed a 2-cm low density in the left mid uterus, which may represent a leiomyoma. Hence, the patient underwent a pelvic ultrasound that was negative for any leiomyoma; however, the pelvic ultrasound that showed an intrauterine device in its place in satisfactory position. The patient continued to have significant abdominal pain. The patient underwent a esophagogastroduodenoscopy on 01/21/2017 that showed mild gastritis. The patient's gastric biopsy was negative for any H. pylori. The patient also underwent a colonoscopy on 01/21/2017 that was negative for any acute findings other than moderate size internal hemorrhoids. The patient continued to be asking for pain medication around the clock. It was suspected that the patient is becoming dependent on opioids. The patient had no evidence of any acute intraabdominal findings that suggest the patient's pain level. Hence, the patient's opioids were tapered down slowly. The patient was seen by medical social worker to evaluate for any underlying psychosocial issues that are contributing to the patient's abdominal pain. The medical social worker evaluated the patient and confirmed no psychosocial issues as contributing to the patient's abdominal pain. Nevertheless, the patient was able to tolerate a regular consistency diet without any significant gastrointestinal symptoms throughout the patient's hospital course. This raised suspicion for malingering on this patient. The patient has underlying type 2 diabetes mellitus. The patient has been on sliding scale insulin along with pre-meal insulin. The patient's hemoglobin A1c was found to be 8.2. The patient has underlying depression. The patient was maintained on SSRIs for the same. The patient has history of chronic back pain. She was maintained on pain medications, including Lyrica. The patient had a stable hospital course. The patient has no significant intra-abdominal pathology that suggests the patient's underlying severe abdominal pain. The patient can be discharged home on proton pump inhibitors and oral analgesics to be followed up with her primary care physician. DISCHARGE DISPOSITION/PLAN: The patient will be discharged home today. The patient was instructed to take medications as per prescription. The patient was instructed to avoid taking NSAIDs. The patient was instructed to follow a carbohydrate-controlled diet. The patient was instructed to follow up with her primary care physician in 1 week. The patient verbalized understanding of her discharge instructions. CONDITION AT DISCHARGE: Stable. DISCHARGE MEDICATIONS: 1. Lisinopril 10 mg p.o. daily. 2. Percocet 2.5/325 one tablet p.o. q.6 hours p.r.n. pain. 3. Protonix 40 mg p.o. b.i.d. 4. Fluoxetine 20 mg p.o. daily. 5. Glipizide ER 10 mg p.o. daily. 6. Metformin 1000 mg p.o. with breakfast and dinner. 7. Lyrica 75 mg p.o. b.i.d. 8. Sitagliptin 100 mg p.o. daily. PERTINENT LABS, DIAGNOSTIC DATA AND PROCEDURES: 1. Esophagogastroduodenoscopy. Mild gastritis. 2. Colonoscopy. Normal colonic mucosa. Moderate-sized internal hemorrhoids. 3. CT scan of the abdomen and pelvis with IV and oral contrast on 01/15/2017. Enhancing lesion involving the left lobe of the liver consistent with hemangioma. Mild hepatomegaly and fatty infiltration with no new hepatic lesions. No evidence of calcified urinary calculi or obstructive uropathy. Negative for intraabdominal free air, fluid, abscesses or lymphadenopathy. A 2-cm low density in the left mid uterus may represent a leiomyoma. 4. Pelvic ultrasound on 01/16/2017. Nonvisualization of the left ovary without worrisome adnexal cyst or mass demonstrated bilaterally. Intrauterine device is in place in satisfactory position. Transabdominal views demonstrate no definite uterine mass or fibroid. 5. Repeat CT scan of the abdomen and pelvis on 01/24/2017. No evidence of abdominopelvic mass, lymphadenopathy or acute inflammatory pathology. Hepatic enlargement with a tiny flash filling hemangioma versus intrahepatic shunt within the left hepatic lobe, unchanged. 6. Blood culture x2. Negative. 7. Urine culture. Negative. 8. Stool culture. Positive for coliform. No Salmonella, Shigella, Staph aureus, vibrio species and other enteric pathogens isolated. No Campylobacter species isolated. 9. Hemoglobin A1c 8.2. 10. Fasting lipid panel. Triglycerides 110, total cholesterol 113, LDL 63, HDL 28. 11. Latest CBC. WBC 8.5, hemoglobin 12.0, hematocrit 34.9, platelet count 242,000. 12. Latest BMP. Sodium 136, potassium 4.2, chloride 102, carbon dioxide 30, anion gap 8, BUN 12, creatinine 0.5, glucose 146, calcium 9.2, magnesium 1.9. 13. Iron panel. Iron 79, TIBC 275, iron saturation 29, ferritin 91.4 At this time, I would like to thank Dr. Barry for seeing the patient, doing the necessary procedures and providing clinical recommendations. The case and management of this patient was fully discussed with Dr. Chapis Rodriguez. Approximately 40 minutes were spent on coordinating the discharge on this patient. Dictated By: Venkat Lopez NP /calvin/donna /Document#: [id number] MTDD
== END 2017-01-25 16:32 | disposition home or self-care (01) | DRG 392 ==
LOC: PP2 14:33
PROVIDERS: ADMIT Internal Medicine; ATTEND Internal Medicine
PROC: 0DB68ZX Excision of Stomach, Via Natural or Artificial Opening Endoscopic, Diagnostic (ICD-10-PCS; 2017-01-21)
PROC: 0DBG8ZX Excision of Left Large Intestine, Via Natural or Artificial Opening Endoscopic, Diagnostic (ICD-10-PCS; principal; 2017-01-21 19:30)
PROC: 0DBF8ZX Excision of Right Large Intestine, Via Natural or Artificial Opening Endoscopic, Diagnostic (ICD-10-PCS; 2017-01-21 19:30)
DX: K29.60 Other gastritis without bleeding (principal); E11.65 Type 2 diabetes mellitus with hyperglycemia; K76.0 Fatty (change of) liver, not elsewhere classified; R10.9 Unspecified abdominal pain; I10 Essential (primary) hypertension; F32.9 Major depressive disorder, single episode, unspecified; G89.29 Other chronic pain; M54.9 Dorsalgia, unspecified; Z85.820 Personal history of malignant melanoma of skin; Z90.49 Acquired absence of other specified parts of digestive tract; E78.5 Hyperlipidemia, unspecified; D18.03 Hemangioma of intra-abdominal structures; K64.8 Other hemorrhoids
CPT/HCPCS: 74177; 76856; 80048; 80053; 80061; 82728; 82962; 83036; 83540; 83605; 83690; 83735; 84100; 84439; 84443; 84703; 85025; 85610; 85730; 87040; 87045; 87086; 88305; 88312; J0696; J1650; J1815; J2270; J7030; Q9967

== ENCOUNTER 2017-02-22 05:43 | Inpatient (IN) | payer OTHER ==
[~2017-02-22] VITALS: Ht 165.1 cm; Wt 77.6 kg
[~2017-02-22 05:43] MED LIST changes: -GLIP-160 PO; +GLIP2.5T3 PO; -MELO7.5O PO; +OXYC-282 PO; +PANT40TA3 PO
[2017-02-22 06:42] VITALS: Ht 165.1 cm; Wt 77.6 kg
[2017-02-22 07:06] VITALS: BP 131/79; RESP 19
[2017-02-22] MEDS: HYDROmorphONE 1 MG/ML SYG IV PRN ×3 (07:11→17:23)
[2017-02-22 07:57] VITALS: BP 112/70; RESP 18
[2017-02-22] MEDS ORDERED: ACETAMINOPHEN 650 MG SUPP PR PRN (11:30)
[2017-02-22] MEDS ORDERED: morphine 2 MG INJ IV PRN (11:30)
[2017-02-22] MEDS ORDERED: ACETAMINOPHEN 325 MG TAB PO PRN (11:30)
[2017-02-22] MEDS ORDERED: NACL 0.9% 3 ML SYG IV SCH (11:30)
[2017-02-22] MEDS ORDERED: ONDANSETRON 4 MG INJ IV PRN (11:30)
[2017-02-22] MEDS ORDERED: DOCUSATE SODIUM 100 MG CAP PO PRN (11:30)
[2017-02-22] MEDS ORDERED: MELO-210 PO (11:31)
[2017-02-22] MEDS ORDERED: TERB250T46 PO (11:31)
[2017-02-22] MEDS ORDERED: BUPR1PAT TD (11:35)
--- NOTE | 2017-02-22 11:49 | HP ---
Date/Time of Note Date/Time of Note DATE: 02/22/17 TIME: 11:27 Assessment/Plan VTE Prophylaxis VTE Prophylaxis Intervention: ambulation Assessment/Plan Chief Complaint/Hosp Course This is a 51-year-old female, who initially presented to outside hospital for evaluation of intractable right-sided abdominal and flank pain which has been going on for 2 months. 1. Recurrent abdominal pain/Nausea in a patient with poorly controlled DM. Of note, patient has had extensive workups including multiple CTs, MRI, endoscopy and colonoscopy with no medical explanation of her symptoms. -I will obtain a NM gastric emptying study as suspicion for gastroparesis is at high 2/2 poorly controlled diabetes. -We will also provide patient with 1 dose GI cocktail followed by PPIs, Reglan ( around the clock), pain control and Zofran PRN -We will also obtain urine studies to rule out any possibility of UTI 2. Type 2 diabetes, poorly controlled. -Obtain A1c. Patient will be placed on Tradjenta, Accu-Cheks, ISS, and Lantus. -Diabetic education and carbohydrate controlled diet. 3. Essential Hypertension, currently stable. -Continue lisinopril 4. Depression. -Resume home medications. -Supportive care 5. Chronic back pain with Fibromyalgia. -Resume home medications. We will also provide patient with PRN morphine. -Pain management eval 6. IUD-placed 4 yrs ago. -I have also explained to the patient that she would benefit from outpatient reevaluation of IUD as this can be also a possible cause of her ongoing abdominal pain,although it is less likely. 7. History of melanoma. Currently no issues. Phylaxis: PPIs Plan: Patient will be started on a clear diet and advanced to carbohydrate controlled diet as tolerated. F/u with NM gastric empty study findings. If test is inconclusive for gastroparesis, we do not feel any further imaging studies other than as there is a low suspicion for any other acute abdominal pathologies to explain her symptoms. She will be also referred for pain management and supportive care for underlying fibromyalgia and depressive disorder. Rest of the management depend on hospital course. Approximately 60 minutes was spent on this H&P. Patient was seen in collaboration with Dr. Rodriguez. Problems: HPI/ROS Admit Date/Time Admit Date/Time Feb 22, 2017 at 06:18 Hx of Present Illness This is a 51-year-old extremely tearful female with a past medical history of chronic back pain, fibromyalgia, depression, type 2 diabetes, hypertension, IUD in place, UTIs, melanoma, cholecystectomy, , who initially presented to outside hospital for evaluation of ongoing epigastric and right sided abdominal pain that has been going on for the past 2 months with associated nausea without vomiting. Apparently, patient had multiple ER visits and hospital admissions for similar complaints and she has had extensive workups including colonoscopy, EGD, CT imaging studies, [employer] works-up with no medical explanation of her symptoms . Workups from outside hospital showed unremarkable CBC and BMP except for slightly elevated WBC 11,600 and elevated blood glucose 208. She also had a magnesium level 1.6. Patient was treated with fentanyl 50 mcg IV, Zofran, Pepcid, lorazepam and Reglan from the outside hospital and was transferred to [facility] for insurance reasons. At my encounter with the patient, she found to be crying with depressed affect and emotional instability. She denied any hallucination, suicidal thoughts or ideation. Patient continued to report ongoing epigastric and right-sided abdominal pain. She denied any vomiting, fever, chills, hematemesis, hematochezia, melena,dysuria,hematuria, pneumaturia,dyspareunia, menorrhagia/ metrorrhagia, vaginal discharges or discomfort. She also denied chest pain, palpitation, shortness of breath, headache, numbness, tingling, or any focal deficit. Patient reported that she has been seeing an outpatient psychiatrist and she is on treatment for underlying psychiatric illness. He also reported that her blood sugar has been out of control over the past 2 months. ROS A 12 point review of system was assessed and is negative other than what is mentioned in HPI. PMH/Family/Social Past Medical History See HPI Past Surgical History See HPI Past Surgical Hx: cholecystectomy Social History Patient denied history of alcohol, smoking or illicit drug use. Smoking Status: Never smoker Exam/Review of Systems Vital Signs Vitals Vital Signs Date Time Temp Pulse Resp B/P Pulse Ox O2 Delivery O2 Flow Rate FiO2 02/22/17 07:57 98.3 78 18 112/70 98 Exam Exam General: Extremely tearful female, not in any acute distress . HEENT: Normocephalic, Atraumatic, No laceration or hematoma; Eyes: PEERL, Conjunctiva clear, Anicteric sclera Neck: Supple without any lymphadenopathy, nontender, no JVD, no carotid bruits, trachea midline, no thyromegaly Cardiac: S1, S2 auscultated, regular rhythm and rate, no mumurs or gallop Pulmonary: Normal respiratory effort. Chest clear to auscultation bilaterally, no adventitious breath sounds GI: With right upper quadrant and right-sided flank pain. Otherwise abdomen normal to inspection. Soft, non- distended, no masses, no rebound tenderness or guarding. Bowel sounds active on all four quadrants Genitourinary: Deferred Extremities: No cyanosis, clubbing, or edema. Pulses [2+] bilaterally. Full ROM on all four extremities. No focal weakness appreciated. Neurologic: Alert to person, place, time, and situation.intact sensation. Skin: Clean,dry, and intact. No ecchymosis, no rashes, or lesions Psych: Depressed, with emotional instability. Denies suicidal ideation or thoughts or hallucinations. Medications Medications Current Medications Hydromorphone HCl (Dilaudid) 1 mg Q4H PRN IV PAIN Last administered on t 07:11; Admin Dose 1 MG; Start 02/22/17 at 07:00 DEBORAH CRUZ NP Feb 22, 2017 11:39 DEBORAH CRUZ NP Feb 22, 2017 11:39
[2017-02-22] MEDS: INSULIN ASPART [NOVOLOG] 3 ML PEN SC SCH ×3 (12:15→21:45)
[2017-02-22] MEDS: METOCLOPRAMIDE 10 MG INJ IV SCH ×2 (12:20→18:07)
[2017-02-22] MEDS ORDERED: GLUCOSE GEL 15 GRAM TUBE PO PRN ×2 (12:30)
[2017-02-22] MEDS ORDERED: DEXTROSE 50% 50 ML SYRINGE IV PRN ×2 (12:30)
[2017-02-22] MEDS ORDERED: GLUCOSE GEL 15 GRAM TUBE BUCCAL PRN (12:30)
[2017-02-22] MEDS ORDERED: GLUCAGON 1 MG INJ IM PRN (12:30)
[2017-02-22] MEDS: LINAGLIPTIN 5 MG TABLET PO SCH (13:00)
[2017-02-22] MEDS ORDERED: LIDOCAINE/MYLANTA 40 ML BTL PO SCH (14:00)
[2017-02-22 14:45] VITALS: BP 129/74; RESP 18
--- NOTE | 2017-02-22 16:41 | RADRPT ---
PROCEDURE: Gastric emptying scan CLINICAL INDICATION: 51 -year-old patient with abdominal pain, nausea and vomiting. TECHNIQUE: Following the oral administration of 1.1 mCi of Tc-99m sulfur colloid, labeled to a jose id meal, gastric emptying study was obtained. COMPARISON: No prior studies. FINDINGS: The stomach is well visualized. The small intestines are not identified. There is evidence of a markedly delayed gastric emptying rate from the start of the study with essen tially no definite visualization of the small bowel activity by the end of the 90 minutes of the kareem ging acquisition. There is no evidence of increased activity in the chest to suggest the presence of gastroesophageal reflux. IMPRESSION: Markedly delayed gastric emptying rate with no definite visualization of the small bowel activity b y the end of the study. RPTAT: HH .Shawnee Capellan MD, Date Time Electronically viewed and signed by .Shawnee Capellan MD, on 02/22/2017 16:40 .L/
[2017-02-22] MEDS: PANTOPRAZOLE (EC) 40 MG TAB PO SCH (18:07)
[2017-02-22 20:33] VITALS: BP 105/59; RESP 18
[2017-02-22] MEDS ORDERED: PREGABALIN 75 MG CAP PO SCH (21:00)
[2017-02-22] MEDS: PREGABALIN 25 MG CAP PO SCH (21:41)
[2017-02-22] MEDS: ERYTHROMYCIN LACTOBIONATE 250 MG in SOD CHLORIDE 0.9% 100 ML IVPB SCH (21:50)
[2017-02-22] MEDS: ONDANSETRON 4 MG TAB PO SCH (21:50)
[2017-02-23] MEDS: METOCLOPRAMIDE 10 MG INJ IV SCH ×4 (00:36→18:06)
[2017-02-23] MEDS ORDERED: ACCU-CHEK XX SCH ×2 (02:00)
[2017-02-23 02:22] VITALS: BP 106/56; RESP 16
[2017-02-23] MEDS: PANTOPRAZOLE (EC) 40 MG TAB PO SCH ×2 (05:20→18:06)
[2017-02-23] MEDS: ERYTHROMYCIN LACTOBIONATE 250 MG in SOD CHLORIDE 0.9% 100 ML IVPB SCH (05:20)
[2017-02-23 06:42] LABS: BASOPHIL # 0.1 10^3/ul (0.0-0.1); BASOPHILS % 0.6 % (0.0-2.0); EOSINOPHILS # 0.1 10^3/ul (0.0-0.5); EOSINOPHILS % 1.5 % (0.0-7.0); HEMATOCRIT 36.9 % (37.0-47.0); HEMOGLOBIN 12.7 g/dl (12.0-16.0); LYMPHOCYTES # 3.8 10^3/ul (0.8-2.9); LYMPHOCYTES % 43.6 % (15.0-51.0); MEAN CORPUSCULAR HEMOGLOBIN 30.5 pg (29.0-33.0); MEAN CORPUSCULAR HGB CONC 34.4 g/dl (32.0-37.0); MEAN CORPUSCULAR VOLUME 88.7 fl (82.0-101.0); MEAN PLATELET VOLUME 10.2 fl (7.4-10.4); MONOCYTE # 0.5 10^3/ul (0.3-0.9); MONOCYTES % 5.7 % (0.0-11.0); NEUTROPHIL # 4.2 10^3/ul (1.6-7.5); NEUTROPHILS % 48.5 % (39.0-77.0); PLATELET COUNT 264 10^3/UL (140-415); RED BLOOD COUNT 4.16 10^6/ul (4.20-5.40); RED CELL DISTRIBUTION WIDTH 12.8 % (11.5-14.5); WHITE BLOOD COUNT 8.6 10^3/ul (4.8-10.8)
[2017-02-23 07:22] LABS: ALBUMIN 4.2 g/dl (3.3-4.9); ALBUMIN/GLOBULIN RATIO 1.2; BILIRUBIN,INDIRECT 0.4 mg/dl (0-1.1); BILIRUBIN,TOTAL 0.4 mg/dl (0.2-1.3); CALCIUM 8.9 mg/dl (8.4-10.2); CHOL/HDL RATIO 4.7 RATIO; CREATININE 0.57 mg/dl (0.44-1.00); MAGNESIUM 1.8 mg/dl (1.7-2.5); POTASSIUM 4.1 mmol/L (3.5-5.1); TOTAL PROTEIN 7.7 g/dl (6.1-8.1)
[2017-02-23 07:47] VITALS: BP 110/64; RESP 18
[2017-02-23] MEDS ORDERED: INSULIN GLARGINE [LANtus] 3 ML PEN SC SCH (08:00)
[2017-02-23] MEDS ORDERED: ERYTHROMYCIN BASE (EC) 250 MG TAB PO SCH (08:00)
[2017-02-23 08:09] LABS: THYROID STIMULATING HORMONE 1.75 MIU/L (0.465-4.680)
[2017-02-23] MEDS: ONDANSETRON 4 MG TAB PO SCH ×2 (08:31→12:39)
[2017-02-23] MEDS: LINAGLIPTIN 5 MG TABLET PO SCH (08:32)
[2017-02-23] MEDS: PREGABALIN 25 MG CAP PO SCH (08:32)
[2017-02-23] MEDS: INSULIN ASPART [NOVOLOG] 3 ML PEN SC SCH ×3 (08:38→18:00)
[2017-02-23] MEDS ORDERED: NON-FORMULARY/PATIENT OWN MED (Sitagliptin* (Januvia*) 100 MG) PO SCH (09:00)
[2017-02-23] MEDS ORDERED: LISINOPRIL 10 MG TAB PO SCH (09:00)
[2017-02-23] MEDS ORDERED: FLUOXETINE 10 MG CAP PO SCH (09:00)
--- NOTE | 2017-02-23 09:41 | PDOCDIS ---
Discharge Instructions CONDITION Patient Condition: Stable HOME CARE INSTRUCTIONS: Your diet recommendation is: Recommended small portion, more frequent diet, carbohydrate controlled FOLLOW UP/APPOINTMENTS Follow-up Plan 1.Follow up with primary care physician in 1 week If you don't have one please let someone know, we can give you resources that may help you pick one. You may also call your insurance company to assign one to you. Review your medication list with your nurse before leaving and if you need new prescriptions please let your nurse know. I may have made changes to your home medications or given you new prescriptions, please let your primary doctor know as well. Stay compliant with your medications and report any side effects to your PCP or pharmacist. Return to the ER if you have any concerns and cannot reach your doctors or call your insurance company, they usually have a nurse that can help you. 2. Call 911 or go to the nearest emergency room if experiencing loss of consciousness, dizziness, chest pain, shortness of breath, vomiting/abdominal pain, speech difficulties, motor weakness or any unusual symptoms. Other instructions: Diet: on dietary modification, blenderized food when symptomatic, liquid nutrient supplements as routine, Drink plenty of water and maintain glucose control. I have made changes to diabetes medications. From now onwards, You do not need to take Januvia and glipizide. you should continue taking Metformin. You will be also placed on insulin therapy. Needs repeat A1C every 3 months with primary care doctor until hemoglobin A1c is less than 7, which is desired for you. For your abdominal pain, I have added medications called erythromycin and Reglan which you should take 3 times a day 30 minutes prior to meal. DEBORAH CRUZ NP Feb 23, 2017 09:41
[2017-02-23] MEDS ORDERED: LANT3I SC (09:52)
[2017-02-23] MEDS ORDERED: Erythromycin Base (Ec) PO (09:52)
[2017-02-23] MEDS ORDERED: METO10TA92 PO (09:52)
[2017-02-23] MEDS ORDERED: PANT40TA4 PO (09:52)
[2017-02-23] MEDS ORDERED: ONDA4TAB8 PO (09:52)
[2017-02-23] MEDS ORDERED: GLUCOMETER (10:02)
[2017-02-23] MEDS: ERYTHROMYCIN BASE (EC) 250 MG TAB PO SCH ×2 (12:39→18:09)
[2017-02-23] MEDS: HYDROmorphONE 1 MG/ML SYG IV PRN ×2 (12:45→18:10)
[2017-02-23 13:59] VITALS: BP 95/55; RESP 18
[2017-02-23] MEDS ORDERED: INSU100I12 SQ (14:51)
--- NOTE | 2017-02-23 15:14 | DS ---
Date/Time of Note Date/Time of Note DATE: 02/23/17 TIME: 15:08 Discharge Summary Admission/Discharge Info Admit Date/Time Feb 22, 2017 at 06:18 Discharge Date/Time Discharge Diagnosis 1. Gastroparesis, likely diabetic gastroparesis versus other neuropathies versus polypharmacy 2. Type 2 diabetes, poorly controlled. 3. Essential Hypertension 4. Depression. 5. Chronic back pain with Fibromyalgia. 6. IUD-placed 4 yrs ago. 7. History of melanoma. Currently no issues. Patient Condition: Stable Procedures 02/22/2017. Nuclear medicine gastric imaging scan. Markedly delayed gastric emptying rate with no definite visualization of the small bowel activity by the end of the study. Hx of Present Illness This is a 51-year-old extremely tearful female with a past medical history of chronic back pain, fibromyalgia, depression, type 2 diabetes with blood sugar has been out of control over the past 2 months., hypertension, IUD in place, UTIs, melanoma, cholecystectomy, , who initially presented to outside hospital for evaluation of ongoing epigastric and right sided abdominal pain that has been going on for the past 2 months with associated nausea without vomiting. Apparently, patient had multiple ER visits and hospital admissions for similar complaints and she has had extensive workups including colonoscopy , EGD, CT imaging studies, [employer] works-up with no medical explanation of her symptoms . Initial labs showed elevated blood glucose 208. She denied any vomiting, fever, chills, hematemesis, hematochezia, melena,dysuria,hematuria, pneumaturia,dyspareunia, menorrhagia/metrorrhagia, vaginal discharges or discomfort. Patient was admitted for further evaluation. Hospital Course Patient was given a dose of GI cocktail followed by PPIs, Reglan around-the- clock, pain medications and Zofran PRN. Patient was placed on Accu-Cheks and insulin as she also had hyperglycemia with type 2 diabetes. Patient had diabetic education. She was continued on her home medication for underlying comorbid conditions. Nuclear medicine gastric emptying study showed markedly delayed gastric emptying rate with no definite visualization of the small bowel activity by the end of the study suggestive of gastroparesis. At this time, patient symptoms are likely secondary to gastroparesis which is possibly secondary to her underlying diabetes versus other neuropathies or polypharmacy. Patient was treated with Erythromycin, Reglan and Zofran with improvement in her symptoms. She was also continued on insulin regimen for tight control of blood glucose. She was continued on diet modification. Patient felt improvement in her pain. She did require any pain medication. She was offered pain management eval for chronic back pain inhouse for which she opted for outpatient follow-up with her regular doctor. She was able to tolerate diet and activities. Patient was also evaluated by diabetic education. At this time, there is no further inpatient workup indicated and patient is medically stable for discharge with outpatient follow-up. Disposition: Patient will be discharged home. She was instructed to take insulin upon discharge. She was also given a 3 weeks course on erythromycin, Reglan and Zofran. Patient was also instructed on small frequent carbohydrate controlled, low-fat diet with adequate hydration. She was also instructed to follow-up with pain management clinic for her underlying chronic back pain and possible fibromyalgia issues. Patient to be also followed up with her outpatient psychiatrist and to review her current medications as she is noted with multiple medications.. Patient verbalized discharge instructions. On day of discharge, patient feels back to her baseline. There was no further complaints of abdominal pain or nausea. Approximately 60 minutes was spent in coordinating the discharge on this patient. Patient was in collaboration with Dr. Rodriguez. Home Meds Active Scripts Insulin Lispro (Humalog Kwikpen U-100) 100 Unit/1 Ml Insuln.pen, 5 UNIT SQ TID, #1 SYR Prov:DEBORAH CRUZ [employer]PER[employer] 02/23/17 [Glucometer] No Conflict Check, 1 TID for DIABETES, #1 BOX Provide glucometer 1 machine, blood sugar check frequency 3 times a day. Prov:BETO CRUZA [employer] SUPER[employer]OR 02/23/17 Ondansetron Hcl* (Zofran*) 4 Mg Tablet, 4 MG PO Q6H Y for NAUSEA AND OR VOMITING for 30 Days, #90 TAB Prov:CRUZ,DEBORAH [employer]. [employer] SUPER[employer]OR 02/23/17 Metoclopramide* (Reglan*) 10 Mg Tablet, 10 MG PO AC MEALS for 30 Days, #90 TAB Prov:CRUZ,DEBORAH [employer] SUPERVISOR 02/23/17 [Erythromycin Base (Ec)] 250 MG TABEC No Conflict Check, 250 MG PO BEFORE MEALS for 20 Days, #60 TAB Prov:CRUZBETOA [employer]. [employer]STRUCTION SUPERVISOR 10/18/17 Insulin Glargine* (Lantus*) 100 Unit/Ml Soln, 15 UNIT SC .HS, #1 SYR Okay to substitute Okay to replace with vial if pen is not covered. Please provide patient with 30 day supplies of insulin syringes, needles, lancet for blood glucose monitoring 3 times a day. Prov:DEBORAH CRUZ NP 02/23/17 Pantoprazole* (Pantoprazole*) 40 Mg Tablet., 40 MG PO BID@, #60 TAB Prov:DEBORAH CRUZ [employer]PER[employer] 02/23/17 Oxycodone HCl/Acetaminophen (Percocet 2.5-325 mg Tablet) 1 Each Tablet, 1 EACH PO Q6H for PAIN, #10 TAB Prov:KIMBERLY VELAZQUEZ NP 01/25/17 Lisinopril* (Lisinopril*) 10 Mg Tablet, 10 MG PO DAILY for 30 Days, TAB Prov:CHIKI LEVINE 01/23/17 Reported Medications Buprenorphine (BUTRANS) 1 Each Patch.tdwk, 1 EACH TD .WEEK 02/22/17 Meloxicam* (Mobic*) 15 Mg Tablet, 15 MG PO DAILY, #30 TAB 02/22/17 Terbinafine* (Lamisil*) 250 Mg Tablet, 250 MG PO DAILY, TAB 02/22/17 Fluoxetine Hcl* (Fluoxetine Hcl*) 10 Mg Tablet, 20 MG PO DAILY, TAB 11/30/16 Pregabalin* (Lyrica*) 75 Mg Capsule, 75 MG PO BID, CAP 11/30/16 Metformin Hcl* (Metformin Hcl*) 1,000 Mg Tablet, 1000 MG PO WITH BREAKFAST DINNE , TAB 11/30/16 Discontinued Reported Medications Glipizide* (Glipizide ER*) 2.5 Mg Tab.er.24, 10 MG PO DAILY, TAB 01/11/17 Sitagliptin* (Januvia*) 100 Mg Tablet, 100 MG PO DAILY, TAB 11/30/16 Discontinued Scripts Pantoprazole* (Protonix*) 40 Mg Tablet., 40 MG PO BID, #60 TAB Prov:KIMBERLY VELAZQUEZ NP 01/25/17 Follow-up Plan 1.Follow up with primary care physician in 1 week If you don't have one please let someone know, we can give you resources that may help you pick one. You may also call your insurance company to assign one to you. Review your medication list with your nurse before leaving and if you need new prescriptions please let your nurse know. I may have made changes to your home medications or given you new prescriptions, please let your primary doctor know as well. Stay compliant with your medications and report any side effects to your PCP or pharmacist. Return to the ER if you have any concerns and cannot reach your doctors or call your insurance company, they usually have a nurse that can help you. 2. Call 911 or go to the nearest emergency room if experiencing loss of consciousness, dizziness, chest pain, shortness of breath, vomiting/abdominal pain, speech difficulties, motor weakness or any unusual symptoms. Other instructions: Diet: on dietary modification, blenderized food when symptomatic, liquid nutrient supplements as routine, Drink plenty of water and maintain glucose control. I have made changes to diabetes medications. From now onwards, You do not need to take Januvia and glipizide. you should continue taking Metformin. You will be also placed on insulin therapy. Needs repeat A1C every 3 months with primary care doctor until hemoglobin A1c is less than 7, which is desired for you. For your abdominal pain, I have added medications called erythromycin and Reglan which you should take 3 times a day 30 minutes prior to meal. Primary Care Provider Not On Staff Doctor Pending Labs Laboratory Tests Test 02/22/17 17:26 02/22/17 21:41 02/23/17 02:47 02/23/17 05:49 Bedside Glucose 258mg/dL (70-220) 254mg/dL (70-220) 158mg/dL (70-220) White Blood Count 8.610^3/ul (4.8-10.8) Red Blood Count 4.1610^6/ul (4.20-5.40) Hemoglobin 12.7g/dl (12.0-16.0) Hematocrit 36.9% (37.0-47.0) Mean Corpuscular Volume 88.7fl (82.0-101.0) Mean Corpuscular Hemoglobin 30.5pg (29.0-33.0) Mean Corpuscular Hemoglobin Concent 34.4g/dl (32.0-37.0) Red Cell Distribution Width 12.8% (11.5-14.5) Platelet Count 08786^3/UL (140-415) Mean Platelet Volume 10.2fl (7.4-10.4) Neutrophils % 48.5% (39.0-77.0) Lymphocytes % 43.6% (15.0-51.0) Monocytes % 5.7% (0.0-11.0) Eosinophils % 1.5% (0.0-7.0) Basophils % 0.6% (0.0-2.0) Nucleated Red Blood Cells % 0.0/100WBC (0.0-0.0) Neutrophils # 4.210^3/ul (1.6-7.5) Lymphocytes # 3.810^3/ul (0.8-2.9) Monocytes # 0.510^3/ul (0.3-0.9) Eosinophils # 0.110^3/ul (0.0-0.5) Basophils # 0.110^3/ul (0.0-0.1) Nucleated Red Blood Cells # 0.010^3/ul (0.0-0.0) Sodium Level 141mmol/L (135-144) Potassium Level 4.1mmol/L (3.5-5.1) Chloride Level 101mmol/L (97-110) Carbon Dioxide Level 28mmol/L (21-31) Anion Gap 16 (8-16) Blood Urea Nitrogen 14mg/dl (7-20) Creatinine 0.57mg/dl (0.44-1.00) Glucose Level 157mg/dl (70-220) Hemoglobin A1c 7.6% (0-5.9) Calcium Level 8.9mg/dl (8.4-10.2) Phosphorus Level 4.0mg/dl (2.5-4.9) Magnesium Level 1.8mg/dl (1.7-2.5) Total Bilirubin 0.4mg/dl (0.2-1.3) Direct Bilirubin 0.00mg/dl (0.00-0.20) Indirect Bilirubin 0.4mg/dl (0-1.1) Aspartate Amino Transf (AST/SGOT) 27IU/L (15-46) Alanine Aminotransferase (ALT/SGPT) 35IU/L (13-69) Alkaline Phosphatase 84IU/L (42-121) Total Protein 7.7g/dl (6.1-8.1) Albumin 4.2g/dl (3.3-4.9) Globulin 3.50g/dl (1.3-3.2) Albumin/Globulin Ratio 1.20 Triglycerides Level 144mg/dl (0-149) Cholesterol Level 182mg/dl (100-200) LDL Cholesterol, Calculated 115mg/dl HDL Cholesterol 38mg/dl (37-92) Cholesterol/HDL Ratio 4.7RATIO Thyroid Stimulating Hormone (TSH) 1.750MIU/L (0.465-4.680) Test 02/23/17 07:57 02/23/17 12:07 Bedside Glucose 194mg/dL (70-220) 214mg/dL (70-220) DEBORAH CRUZ NP Feb 23, 2017 15:14
== END 2017-02-23 18:50 | disposition home or self-care (01) | DRG 392 ==
LOC: MS2 06:18
PROVIDERS: ADMIT Family Medicine; ATTEND Family Medicine
DX: K31.84 Gastroparesis (principal); E11.43 Type 2 diabetes mellitus with diabetic autonomic (poly)neuropathy; E11.65 Type 2 diabetes mellitus with hyperglycemia; I10 Essential (primary) hypertension; R10.31 Right lower quadrant pain; F32.9 Major depressive disorder, single episode, unspecified; G89.29 Other chronic pain; M54.9 Dorsalgia, unspecified; Z97.5 Presence of (intrauterine) contraceptive device; Z79.4 Long term (current) use of insulin
CPT/HCPCS: 78264; 80053; 80061; 82962; 83036; 83735; 84100; 84443; 85025; 87086; 97161; A9541; J1170; J1364; J1815; J2405; J2765